=== PATIENT | male | born 1930 | race Caucasian/White ===

== ENCOUNTER 2019-03-13 18:29 | Inpatient (IN) ==
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
[2019-03-13 19:03] LABS: Mean Corpuscular Hemoglobin 31.3 pg (27-31); Mean Corpuscular Hgb Conc 32.9 g/dl (32-36); Mean Platelet Volume 8.5 fl (8-11.3); Platelet Count 310 K/mm3 (150-450); Red Cell Distribution Width 12.8 % (11.5-14.0); White Blood Count 13.8 K/mm3 (4.0-10.5)
[2019-03-13] MEDS ORDERED: LIDOCAINE HCL 50 ML VIAL IJ ONE (19:04)
[2019-03-13 19:17] LABS: Hemoglobin 7.5 gm/dL (13.5-18.0)
[2019-03-13 19:18] LABS: Hematocrit 22.8 % (42.0-52.0); Total Cells Counted 100
[2019-03-13 19:25] LABS: Albumin * 2.2 gm/dl (3.4-5.0); Anion Gap 9.9 mmol/L (6.8-13.8); BUN/Creatinine Ratio 13.9 (9.0-21.6); Bilirubin, Total 0.2 mg/dL (0.0-1.1); CRP 7.3 mg/dL (0.0-0.9); Ca. Corrected For Albumin 8.9 mg/dL (8.4-10.2); Calcium * 7.8 mg/dL (7.9-10.9); Carbon Dioxide 27.2 mmol/L (24-32.6); Potassium 3.1 mmol/L (3.4-4.6); Total Protein 6.7 gm/dL (6.2-8.2)
[2019-03-13 19:26] LABS: Atypical (Reactive) Lymph 1 % (0-2); Eosinophil 1 % (0-3); Lymphocyte 5 % (20-51); Monocyte 11 % (0-9); Neutrophil 82 % (42-75); Neutrophil # 11.3 K/mm3 (1.3-6.0)
[2019-03-13 19:27] LABS: Hypersegmented Polys Trace; Troponin I 0.02 ng/mL (0.00-0.10)
[2019-03-13 19:28] LABS: Anisocytosis 1+; Platelet Estimate Normal (NORMAL)
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
[2019-03-13] MEDS: oxyCODONE HCL/ACETAMINOPHEN 1 TAB TABLET PO PRN (23:43)
[2019-03-14 05:48] LABS: Mean Corpuscular Hemoglobin 31.1 pg (27-31); Mean Corpuscular Hgb Conc 32.8 g/dl (32-36); Mean Platelet Volume 8.5 fl (8-11.3); Neutrophil # 9.4 K/mm3 (1.3-6.0); Platelet Count 299 K/mm3 (150-450); Red Blood Count 2.41 M/mm3 (4.7-6.0); Red Cell Distribution Width 12.9 % (11.5-14.0); White Blood Count 12.2 K/mm3 (4.0-10.5)
[2019-03-14 05:51] LABS: Hematocrit 22.9 % (42.0-52.0); Hemoglobin 7.5 gm/dL (13.5-18.0)
[2019-03-14 06:00] LABS: Total Cells Counted 100
[2019-03-14 06:42] LABS: Eosinophil 2 % (0-3); Immature Granulocyte 1 (0-1); Lymphocyte 14 % (20-51); Monocyte 7 % (0-9); Neutrophil 76 % (42-75); Neutrophil # 9.3 K/mm3 (1.3-6.0); Platelet Estimate Normal (NORMAL); RBC Morphology Normal (NORMAL)
[2019-03-14] MEDS: oxyCODONE HCL/ACETAMINOPHEN 1 TAB TABLET PO PRN ×2 (07:44→16:06)
--- NOTE | 2019-03-14 08:27 | HP ---
Chief Complaint - Chief Complaint Date of Service: 03/14/19 Time of Service: 08:26 Chief Complaint: fall, facial lacerations, dizziness, anemia History of Present Illness: 88-year-old male with history of CHF, COPD, chronic back pain with long-term opiate use, hypertension presented to the ER after a ground-level fall. Patient was seen the day before by his PCP where he was diagnosed with right upper lobe pneumonia and started on Levaquin. Patient states that he has not felt well for close to a week regarding shortness of breath and cough. On day of injury patient states that he got dizzy and short of breath as his walking back to his house and he overextended and fell hit his face on concrete. Fall resulted in multiple lacerations to his face which was repaired by ER physician. CT scan of the head and neck were negative for acute pathology. Patient was found to be anemic at 7.5 hemoglobin. 3 months ago he was around 12. Patient does endorse dark stools but also thinks that he is losing most of his blood through his urine which he was told by another physician previously. Patient has never had a colonoscopy. Patient was also found to have an elevated BNP which there was some vascular congestion seen on his chest x-ray aside from the infiltrate in his right lung. Patient's vital signs been stable since coming to the ER aside from some tachycardia which has since resolved. He is afebrile. Currently patient is endorsing back pain, shortness of breath and cough. Denies any dizziness at this time but patient has been laying in bed since coming to the hospital. Patient currently on oxygen due to dyspnea. Patient was admitted under observation but due to new onset pneumonia (currently on Levaquin), symptom medic anemia, CHF exacerbation, as well as long-term opiate use: All of which may be attributing to his dizziness and fatigue and is likely appropriate the patient be made inpatient while he is being treated for these issues. Medical History (Last Updated 03/14/19 @ 01:01 by Esther Beasley RN) Prostatism (Chronic) He is getting up 3-4 times a night. He has urgency with urination but no dysuria. He does not void normal volumes as it seems to be smaller volume than usual. I expect he is not completely emptying his bladder. Emphysema with chronic bronchitis (Chronic) Chronic pain syndrome (Chronic) Hyperlipidemia (Chronic) Hypertension (Acute) Low back pain (Chronic) There is occasional sciatica down the right leg. 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) Hummel palsy CHF (congestive heart failure) Shingles COPD (chronic obstructive pulmonary disease) Colonoscopy refused Constipation High cholesterol Hx-TIA (transient ischemic attack) Hypertension Low back pain Surgical History: Surgical History (Last Updated 03/13/19 @ 22:41 by Esther Beasley RN) History of appendectomy H/O hemorrhoidectomy History of back surgery Hx of hernia repair Family History: Family History (Last Reviewed 03/13/19 @ 21:11 by Evelyne Jaimes MD) Father Myocardial infarction Social History: (Last Reviewed 03/13/19 @ 22:42 by Esther Beasley RN) Social History: Marital status: household members: none current occupational status: retired Highest education level completed: 8th grade Service: Yes branch: [employer] Tobacco: Smoking Status: Former smoker Alcohol: alcohol intake: never Substance Use: substance use type: does not use Dietary Habits: caffeine: Yes Type: coffee Review Of Systems (GEN) - Review of Systems Generalized/Overall Review: Present: Weakness, Fatigue. Absent: Chills, Fever EENTM: Present: No Symptoms Reported Respiratory: Present: Cough, Shortness of Breath Cardiac: Absent: Chest Pain, Edema, Palpitations, Syncope Abdominal: Absent: Nausea, Vomiting, Abdominal Pain Genitourinary: Present: No Symptoms Reported Musculoskeletal: Present: Back Pain, Muscle Pain Neurological: Present: No Symptoms Reported Skin: Present: Other - multiple cuts to face Endocrine: Present: No Symptoms Reported Immunizations: IMMUNIZATION HX Immunizations Up to Date Yes History of Influenza Vaccine Yes Hx Pneumococcal Vaccination Yes Allergies/Adverse Reactions: Allergies Allergy/AdvReac Type Severity Reaction Status Date / Time No Known Allergies Allergy Verified 03/13/19 09:04 Home Medications: HOME MEDICATIONS Pravastatin Sodium [Pravachol] 40 mg PO HS 10/12/15 [Last Taken 03/13/19 12:00] Triamterene/Hydrochlorothiazid [Maxzide 75 MG/50 MG] 1 tab PO DAILY 10/12/15 [Last Taken 03/13/19 09:00] Aspirin [Aspirin Chewable] 81 mg PO DAILY 05/02/18 [Last Taken 03/13/19 09:00] Budesonide/Formoterol Fumarate [Symbicort 160-4.5 Mcg Inhaler] 2 puff INHALATION BID 08/22/17 [Last Taken 03/13/19 09:00] Tiotropium Rand [Spiriva Respimat 2.5 mcg/inhalation] 2 puff INHALATION DAILY 08/22/17 [Last Taken 03/13/19 09:00] Polyethylene Glycol 3350 [Miralax] 17 gm PO DAILY #14 powd.pack 08/23/17 [Last Taken 03/12/19 21:00] guaifenesin 600 mg tablet, extended release 12 hr 600 mg PO BID #60 tab 03/13/19 [Last Taken Unknown] levofloxacin 500 mg tablet 500 mg PO DAILY #10 tab 03/13/19 [Last Taken 03/13/19 12:00] oxycodone-acetaminophen 10 mg-325 mg tablet 1 tab PO QID PRN #120 tab 03/13/19 [Last Taken 03/13/19 16:30] Exam - Exam Vital Signs: Vital Signs - Last Taken Temp 36.2 C 03/14/19 06:34 Pulse 86 03/14/19 06:34 Resp 20 03/14/19 06:34 BP 107/55 03/14/19 06:34 Pulse Ox 93 03/14/19 06:34 Constitutional: Present: Alert, Oriented x3, Cooperative, Elderly ENT Exam: Present: hearing grossly normal, pharynx normal, other - no septal hematoma. Absent: nasal congestion Eye Exam: bilateral eye: normal inspection, PERRL, EOMI Neck: Present: non-tender, supple Back Exam: Present: vertebral tenderness, other - myalgia lower back Respiratory: Present: no respiratory distress, no accessory muscle use, crackles - RML, rhonchi - RML Cardiovascular/Chest: Present: normal peripheral pulses, regular rate, rhythm. Absent: edema Peripheral Pulses: carotid (R): 2+, carotid (L): 2+, dorsalis-pedis (R): 2+, dorsalis-pedis (L): 2+ Abdomen: Present: Normal bowel sounds, soft, nontender, nondistended /Rectal: Present: Exam deferred Skin Exam: Present: warm/dry, pallor Lymphatic: Present: no adenopathy Appearance: Present: appropriate appearance, appropriate insight Eye contact: Present: cooperative, good eye contact, normal speech Thoughts: Present: normal thought pattern, normal mood /affect Diagnostic Studies: Abnormal Lab Results 03/13/19 03/13/19 03/13/19 Range/Units 18:43 19:00 19:00 WBC 13.8 H (4.0-10.5) K/mm3 RBC 2.40 L (4.7-6.0) M/mm3 Hgb 7.5 L* (13.5-18.0) gm/dL Hct 22.8 L* (42.0-52.0) % MCH 31.3 H (27-31) pg Immature Gran % (Auto) (0.001-0.429) % Immature Gran # (Auto) (0.000-0.0310) K/mm3 Neutrophils % (42-75.0) % Neutrophils % (Manual) 82 H (42-75) % Lymphocytes % (20-51) % Lymphocytes % (Manual) 5 L (20-51) % Monocytes % (0.0-9) % Monocytes % (Manual) 11 H (0-9) % Neutrophils # (1.3-6.0) K/mm3 Neutrophils # (Manual) 11.3 H (1.3-6.0) K/mm3 Lymphocytes # (1.5-3.5) k/mm3 Lymphocytes # (Manual) 0.7 L (1.5-3.5) k/mm3 Monocytes # (0.0-1.0) k/mm3 Monocytes # (Manual) 1.5 H (0.0-1.0) k/mm3 Total CO2 27.5 H (19.0-24.0) mmol/L Sodium 129 L (132-142) mmol/L Plasma Sodium 129 L (130-142) mmol/L Potassium 3.1 L (3.4-4.6) mmol/L Chloride 95 L (97-106) mmol/L Creatinine 1.58 H (0.4-1.4) mg/dL Est GFR (Non-Af Amer) 44 L (60-130) mL/min Random Glucose 125 H (70-110) mg/dL Calcium 7.8 L (7.9-10.9) mg/dL ALT 11 L (19-67) U/L C-Reactive Prot, Quant 7.3 H (0.0-0.9) mg/dL B-Natriuretic Peptide 2176 H (5-650) pg/mL Albumin 2.2 L (3.4-5.0) gm/dl 03/14/19 Range/Units 06:00 WBC 12.2 H (4.0-10.5) K/mm3 RBC 2.41 L (4.7-6.0) M/mm3 Hgb 7.5 L* (13.5-18.0) gm/dL Hct 22.9 L* (42.0-52.0) % MCH 31.1 H (27-31) pg Immature Gran % (Auto) 1.00 H (0.001-0.429) % Immature Gran # (Auto) 0.12 H (0.000-0.0310) K/mm3 Neutrophils % 77.0 H (42-75.0) % Neutrophils % (Manual) 76 H (42-75) % Lymphocytes % 6.5 L (20-51) % Lymphocytes % (Manual) 14 L (20-51) % Monocytes % 14.7 H (0.0-9) % Monocytes % (Manual) (0-9) % Neutrophils # 9.4 H (1.3-6.0) K/mm3 Neutrophils # (Manual) 9.3 H (1.3-6.0) K/mm3 Lymphocytes # 0.79 L (1.5-3.5) k/mm3 Lymphocytes # (Manual) (1.5-3.5) k/mm3 Monocytes # 1.8 H (0.0-1.0) k/mm3 Monocytes # (Manual) (0.0-1.0) k/mm3 Total CO2 (19.0-24.0) mmol/L Sodium (132-142) mmol/L Plasma Sodium (130-142) mmol/L Potassium (3.4-4.6) mmol/L Chloride (97-106) mmol/L Creatinine (0.4-1.4) mg/dL Est GFR (Non-Af Amer) (60-130) mL/min Random Glucose (70-110) mg/dL Calcium (7.9-10.9) mg/dL ALT (19-67) U/L C-Reactive Prot, Quant (0.0-0.9) mg/dL B-Natriuretic Peptide (5-650) pg/mL Albumin (3.4-5.0) gm/dl Laboratory Results WBC 12.2 K/mm3 (4.0-10.5) H 03/14/19 06:00 RBC 2.41 M/mm3 (4.7-6.0) L 03/14/19 06:00 Hgb 7.5 gm/dL (13.5-18.0) L* 03/14/19 06:00 Hct 22.9 % (42.0-52.0) L* 03/14/19 06:00 MCV 95.0 fl (78-100) 03/14/19 06:00 MCH 31.1 pg (27-31) H 03/14/19 06:00 MCHC 32.8 g/dl (32-36) 03/14/19 06:00 RDW 12.9 % (11.5-14.0) 03/14/19 06:00 Plt Count 299 K/mm3 (150-450) 03/14/19 06:00 MPV 8.5 fl (8-11.3) 03/14/19 06:00 Immature Gran % (Auto) 1.00 % (0.001-0.429) H 03/14/19 06:00 Immature Gran # (Auto) 0.12 K/mm3 (0.000-0.0310) H 03/14/19 06:00 Neutrophils % 77.0 % (42-75.0) H 03/14/19 06:00 Neutrophils % (Manual) 76 % (42-75) H 03/14/19 06:00 Lymphocytes % 6.5 % (20-51) L 03/14/19 06:00 Lymphocytes % (Manual) 14 % (20-51) L 03/14/19 06:00 Monocytes % 14.7 % (0.0-9) H 03/14/19 06:00 Monocytes % (Manual) 7 % (0-9) 03/14/19 06:00 Eosinophils % 0.6 % (0.0-3.0) 03/14/19 06:00 Eosinophils % (Manual) 2 % (0-3) 03/14/19 06:00 Basophils % 0.2 % (0.0-1.0) 03/14/19 06:00 Nucleated RBC % 0.0 k/mm3 (0-1) 03/14/19 06:00 Immature Granulocytes 1 (0-1) 03/14/19 06:00 Neutrophils # 9.4 K/mm3 (1.3-6.0) H 03/14/19 06:00 Neutrophils # (Manual) 9.3 K/mm3 (1.3-6.0) H 03/14/19 06:00 Lymphocytes # 0.79 k/mm3 (1.5-3.5) L 03/14/19 06:00 Lymphocytes # (Manual) 1.7 k/mm3 (1.5-3.5) 03/14/19 06:00 Monocytes # 1.8 k/mm3 (0.0-1.0) H 03/14/19 06:00 Monocytes # (Manual) 0.9 k/mm3 (0.0-1.0) 03/14/19 06:00 Eosinophils # 0.1 k/mm3 (0.0-0.7) 03/14/19 06:00 Eosinophils # (Manual) 0.2 k/mm3 (0.0-0.7) 03/14/19 06:00 Absolute Basophils 0.0 k/mm3 (0.0-0.1) 03/14/19 06:00 Hypersegmented Polys Trace 03/13/19 19:00 Atypic/Reactive Lymphs 1 % (0-2) 03/13/19 19:00 Platelet Estimate Normal (NORMAL) 03/14/19 06:00 RBC Morphology Normal (NORMAL) 03/14/19 06:00 Anisocytosis 1+ 03/13/19 19:00 pCO2 41.2 mmHg (35.0-48.0) 03/13/19 18:43 pO2 95.2 mmHg (83.0-108.0) 03/13/19 18:43 HCO3 26.2 mmol/L (21.0-28.0) 03/13/19 18:43 Total CO2 27.5 mmol/L (19.0-24.0) H 03/13/19 18:43 Base Excess 1.7 mmol/L (-2.0-3.0) 03/13/19 18:43 ABG pH 7.42 (7.35-7.45) 03/13/19 18:43 ABG O2 Sat (Measured) 97.4 % (94.0-98.0) 03/13/19 18:43 Sodium 129 mmol/L (132-142) L 03/13/19 19:00 Plasma Sodium 129 mmol/L (130-142) L 03/13/19 19:00 Potassium 3.1 mmol/L (3.4-4.6) L 03/13/19 19:00 Chloride 95 mmol/L (97-106) L 03/13/19 19:00 Carbon Dioxide 27.2 mmol/L (24-32.6) 03/13/19 19:00 Anion Gap 9.9 mmol/L (6.8-13.8) 03/13/19 19:00 BUN 22 mg/dL (6-23) 03/13/19 19:00 Creatinine 1.58 mg/dL (0.4-1.4) H 03/13/19 19:00 Est GFR (Non-Af Amer) 44 mL/min (60-130) L 03/13/19 19:00 BUN/Creatinine Ratio 13.9 (9.0-21.6) 03/13/19 19:00 Random Glucose 125 mg/dL (70-110) H 03/13/19 19:00 Lactic Acid, Venous 1.9 mmol/L (0.4-2.0) 03/13/19 19:00 Calcium 7.8 mg/dL (7.9-10.9) L 03/13/19 19:00 Calcium Adj for Albumin 8.9 mg/dL (8.4-10.2) 03/13/19 19:00 Total Bilirubin 0.2 mg/dL (0.0-1.1) 03/13/19 19:00 AST 15 U/L (0-48) 03/13/19 19:00 ALT 11 U/L (19-67) L 03/13/19 19:00 Alkaline Phosphatase 102 U/L (50-170) 03/13/19 19:00 Troponin I 0.020 ng/mL (0.00-0.10) 03/13/19 19:00 C-Reactive Prot, Quant 7.3 mg/dL (0.0-0.9) H 03/13/19 19:00 B-Natriuretic Peptide 2176 pg/mL (5-650) H 03/13/19 19:00 Total Protein 6.7 gm/dL (6.2-8.2) 03/13/19 19:00 Albumin 2.2 gm/dl (3.4-5.0) L 03/13/19 19:00 Procalcitonin 0.08 ng/mL (0.05-0.50) 03/13/19 19:00 Assessment/Plan - Narrative Narrative: Patient placed in observation though with everything going on I think he would be better suited as inpatient. Patient currently awaiting transfusion of 1 unit packed red blood cells along with 20 mg IV Lasix. Fecal occult blood test ordered. Restarted patient breathing treatments to help with some of the shortness of breath that he is feeling. Patient currently on 1-/2 oxygen via nasal cannula to maintain sats and for comfort. Restarted patient's Levaquin for his pneumonia. Adjusted patient's pain medicine as he was getting 10 mg of Percocet 4 times daily but due to fall risk and dizziness will titrate down to 5 mg Percocet 3 times daily while he is acutely ill. We will recheck patient's sodium, currently fluid restricting him as well as strict I's and O's for CHF exacerbation. Hypertension well-controlled. Tachycardia has returned back to normal range. White blood cell count at admission was 13.8 with a left shift of 82%. Chronic kidney disease at baseline. Patient started on heart healthy diet, chronic medications restarted aside from the change in his opiate pain medicine. Will place SCDs for DVT prophylaxis due to patient's anemia and bleeding risk. Discussed all this with the patient who is in agreement the treatment plan, nurse to call me with any questions or concerns. Repeat CBC and BMP In the morning. Repeat hemogram 2 hours posttransfusion this morning. - Assessment/Plan (1) Symptomatic anemia Problem: Acute (2) Pneumonia Problem: Acute (3) CHF exacerbation Problem: Acute (4) Hyponatremia Problem: Acute (5) Face lacerations Problem: Acute (6) Hypertension Problem: Acute Qualifiers: Hypertension type: essential hypertension Qualified Code(s): I10 - Essential (primary) hypertension (7) Low back pain Problem: Chronic Qualifiers: Chronicity: chronic Back pain laterality: midline Sciatica presence: without sciatica Qualified Code(s): M54.5 - Low back pain; G89.29 - Other chronic pain (8) COPD (chronic obstructive pulmonary disease) Problem: Chronic Qualifiers: COPD type: chronic bronchitis Chronic bronchitis type: mixed simple and mucopurulent Qualified Code(s): J41.8 - Mixed simple and mucopurulent chronic bronchitis (9) CKD (chronic kidney disease) stage 3, GFR 30-59 ml/min Problem: Chronic
[2019-03-14] MEDS ORDERED: POLYETHYLENE GLYCOL 3350 17 GM PACKET PO SCH (09:00)
[2019-03-14 09:32] LABS: BUN/Creatinine Ratio 13.9 (9.0-21.6); Calcium * 8.5 mg/dL (7.9-10.9); Carbon Dioxide 28.9 mmol/L (24-32.6); Estimated Creat Clear 40.5; Potassium 2.9 mmol/L (3.4-4.6)
[2019-03-14] MEDS: FLUTICASONE PROPION/SALMETEROL 14 PUFF DISK.W.DEV IH SCH ×2 (10:01→20:06)
[2019-03-14] MEDS: TIOTROPIUM BROMIDE 5 CAP INHALER IH SCH (10:02)
[2019-03-14] MEDS: ASPIRIN 81 MG TAB.CHEW PO SCH (10:02)
[2019-03-14] MEDS: LEVOFLOXACIN 500 MG TABLET PO SCH (10:02)
[2019-03-14] MEDS: TRIAMTERENE/HYDROCHLOROTHIAZID 1 TAB TABLET PO SCH (10:02)
[2019-03-14] MEDS: FUROSEMIDE 10 MG/ML VIAL IV SCH (10:04)
[2019-03-14] MEDS: SIMVASTATIN 20 MG TABLET PO SCH (20:06)
[2019-03-14] MEDS: diphenhydrAMINE HCL 25 MG CAPSULE PO PRN (23:15)
[2019-03-14] MEDS: POLYETHYLENE GLYCOL 3350 17 GM PACKET PO SCH (23:15)
[2019-03-15] MEDS: oxyCODONE HCL/ACETAMINOPHEN 1 TAB TABLET PO PRN ×3 (00:10→18:35)
[2019-03-15 03:25] LABS: Hematocrit 25.9 % (42.0-52.0)
[2019-03-15 03:31] LABS: Hemoglobin 8.7 gm/dL (13.5-18.0)
[2019-03-15] MEDS: FLUTICASONE PROPION/SALMETEROL 14 PUFF DISK.W.DEV IH SCH ×2 (08:50→21:42)
[2019-03-15] MEDS: TIOTROPIUM BROMIDE 5 CAP INHALER IH SCH (08:50)
[2019-03-15] MEDS: ASPIRIN 81 MG TAB.CHEW PO SCH (08:51)
[2019-03-15] MEDS: TRIAMTERENE/HYDROCHLOROTHIAZID 1 TAB TABLET PO SCH (08:51)
[2019-03-15] MEDS: LEVOFLOXACIN 500 MG TABLET PO SCH (08:51)
[2019-03-15] MEDS: POLYETHYLENE GLYCOL 3350 17 GM PACKET PO SCH ×2 (08:51→21:45)
[2019-03-15] MEDS: FUROSEMIDE 10 MG/ML VIAL IV SCH (10:00)
[2019-03-15] MEDS: POTASSIUM CHLORIDE 40 MEQ/15 ML LIQUID PO SCH (11:32)
[2019-03-15] MEDS ORDERED: ONDANSETRON HCL/PF 2 MG/ML VIAL IV PRN (11:46)
[2019-03-15 18:09] LABS: Hematocrit 30.2 % (42.0-52.0); Hemoglobin 9.9 gm/dL (13.5-18.0); Mean Cell Volume 94.7 fl (78-100); Mean Corpuscular Hgb Conc 32.8 g/dl (32-36); Mean Platelet Volume 9.3 fl (8-11.3); Platelet Count 336 K/mm3 (150-450); Red Blood Count 3.19 M/mm3 (4.7-6.0); Red Cell Distribution Width 13.2 % (11.5-14.0); White Blood Count 15.9 K/mm3 (4.0-10.5)
--- NOTE | 2019-03-15 19:55 | PN ---
Subjective - Date and Time Seen Date: 03/15/19 Time: 12:41 Subjective Narrative: Patient did well overnight without any acute events. His vital signs been stable and has been afebrile. Patient was unable to get blood until late last night and so we will need to recheck his hemoglobin later this afternoon to make sure he remained stable. Patient does endorse some dark tarry stools but they are minimal and he has not had any recently. Discussed possible colonoscopy which patient does not really want to do but will wait and see how his blood counts do in order to determine whether or not this is necessary. Patient feels well otherwise, denies being dizzy or weak. His breathing is fine. Patient does have significant bruising along his face with a couple lacerations repaired on his forehead and his nose. Otherwise he feels well, does have a slight cough but is nonproductive. Objective - Review of Systems Generalized/Overall Review: Denies: Weakness, Chills, Fever EENTM: Denies: Blurred Vision, Double Vision Respiratory: Reports: Cough. Denies: Shortness of Breath, Wheezing Cardiac: Denies: Chest Pain, Palpitations, Syncope Abdominal: Denies: Nausea, Vomiting, Abdominal Pain Genitourinary Symptoms: Reports: No Symptoms Reported Musculoskeletal Complaints: Reports: Back Pain, Neck Pain Neurological: Denies: Headache Skin: Reports: Other - Significant ecchymosis in forehead, cheeks and nose. - Vitals Vitals: Last Vital Signs Temp 36.4 C 03/15/19 18:37 Pulse 101 H 03/15/19 18:37 Resp 17 03/15/19 18:37 BP 122/49 03/15/19 18:37 Pulse Ox 94 03/15/19 18:37 - Abnormal Lab Findings Abnormal Lab Findings: Abnormal Lab Results 03/13/19 03/15/19 03/15/19 Range/Units Unknown 03:00 18:03 WBC 15.9 H D (4.0-10.5) K/mm3 RBC 3.19 L (4.7-6.0) M/mm3 Hgb 8.7 L 9.9 L (13.5-18.0) gm/dL Hct 25.9 L 30.2 L (42.0-52.0) % Crossmatch See Detail - Exam Constitutional: Present: Alert, Oriented x3, Cooperative, Elderly ENT Exam: Present: hearing grossly normal. Absent: nasal drainage, pharyngeal erythema Neck: Present: non-tender, limited range of motion - Due to arthritis Respiratory: Present: chest non-tender, crackles - Right upper and middle lobes, rhonchi - Right upper and middle lobes. Absent: respiratory distress, No wheezing Cardiovascular/Chest: Present: regular rate, rhythm, no murmur Abdomen: Present: Normal bowel sounds, soft, nontender /Rectal: Present: Exam deferred Skin Exam: Present: normal color, warm/dry, other - Significant ecchymosis on face, 2 small repaired lacerations on face Appearance: Present: appropriate appearance, appropriate insight Eye contact: Present: cooperative, good eye contact Thoughts: Present: normal thought pattern, normal mood /affect Assessment/Plan Plan Narrative: Significant improvement overnight, vital signs are stable and he is afebrile. No acute events. Patient's breathing is much easier and is maintaining sats on room air well. His tachycardia is also improved significantly. His hemoglobin 24 hours posttransfusion is significantly better. Patient did have a positive occult blood test but wishes to wait on the colonoscopy and discuss this with his primary care doctor, Dr. Jaramillo, when he sees him next. Patient denies productive cough. Patient is down roughly 12 pounds with diuresis Patient's blood pressures well controlled Ecchymosis and facial lacerations unchanged Patient will likely be discharged home tomorrow morning. SCDs for DVT prophylaxis. Repeat labs in the morning. Nurse to call with any questions or concerns. - Problems/Diagnosis (1) Symptomatic anemia Problem: Resolved (2) Pneumonia Problem: Acute (3) CHF exacerbation Problem: Acute (4) Hyponatremia Problem: Resolved (5) Face lacerations Problem: Acute (6) Hypertension Problem: Chronic Qualifiers: Hypertension type: essential hypertension Qualified Code(s): I10 - Essential (primary) hypertension (7) Low back pain Problem: Chronic Qualifiers: Chronicity: chronic Back pain laterality: midline Sciatica presence: without sciatica Qualified Code(s): M54.5 - Low back pain; G89.29 - Other chronic pain (8) COPD (chronic obstructive pulmonary disease) Problem: Chronic Qualifiers: COPD type: chronic bronchitis Chronic bronchitis type: mixed simple and mucopurulent Qualified Code(s): J41.8 - Mixed simple and mucopurulent chronic bronchitis (9) CKD (chronic kidney disease) stage 3, GFR 30-59 ml/min Problem: Chronic
[2019-03-15] MEDS: SIMVASTATIN 20 MG TABLET PO SCH (21:43)
[2019-03-15] MEDS: diphenhydrAMINE HCL 25 MG CAPSULE PO PRN (23:02)
[2019-03-16 06:19] LABS: Hematocrit 27.7 % (42.0-52.0); Hemoglobin 9.1 gm/dL (13.5-18.0); Mean Cell Volume 94.5 fl (78-100); Mean Corpuscular Hemoglobin 31.1 pg (27-31); Mean Corpuscular Hgb Conc 32.9 g/dl (32-36); Mean Platelet Volume 8.5 fl (8-11.3); Platelet Count 327 K/mm3 (150-450); Red Blood Count 2.93 M/mm3 (4.7-6.0); Red Cell Distribution Width 13.1 % (11.5-14.0); White Blood Count 13.8 K/mm3 (4.0-10.5)
[2019-03-16 06:23] LABS: Total Cells Counted 100
[2019-03-16 06:28] LABS: Anion Gap 11.3 mmol/L (6.8-13.8); BUN/Creatinine Ratio 13.3 (9.0-21.6); Calcium * 8.5 mg/dL (7.9-10.9); Carbon Dioxide 28.1 mmol/L (24-32.6); Estimated Creat Clear 35.1; Potassium 3.4 mmol/L (3.4-4.6)
[2019-03-16 06:33] LABS: Atypical (Reactive) Lymph 2 % (0-2); Band 2 % (0-2.0); Immature Granulocyte 2 (0-1); Lymphocyte 5 % (20-51); Monocyte 13 % (0-9); Neutrophil 76 % (42-75); Neutrophil # 10.5 K/mm3 (1.3-6.0); Platelet Estimate Normal (NORMAL)
[2019-03-16 06:35] LABS: Hypersegmented Polys Trace; Hypochromia Trace; Polychromasia 1+; Toxic Granulation 1+
[2019-03-16 06:36] LABS: Basophilic Stippling Trace
[2019-03-16] MEDS: oxyCODONE HCL/ACETAMINOPHEN 1 TAB TABLET PO PRN ×2 (07:22→17:48)
[2019-03-16] MEDS: TRIAMTERENE/HYDROCHLOROTHIAZID 1 TAB TABLET PO SCH (09:02)
[2019-03-16] MEDS: FUROSEMIDE 10 MG/ML VIAL IV SCH (09:02)
[2019-03-16] MEDS: FLUTICASONE PROPION/SALMETEROL 14 PUFF DISK.W.DEV IH SCH ×2 (09:02→20:44)
[2019-03-16] MEDS: LEVOFLOXACIN 500 MG TABLET PO SCH (09:02)
[2019-03-16] MEDS: POLYETHYLENE GLYCOL 3350 17 GM PACKET PO SCH (09:03)
[2019-03-16] MEDS: POTASSIUM CHLORIDE 40 MEQ/15 ML LIQUID PO SCH (09:03)
[2019-03-16] MEDS: TIOTROPIUM BROMIDE 5 CAP INHALER IH SCH (09:03)
--- NOTE | 2019-03-16 14:20 | CONS ---
[facility] - General Date of Service: 03/16/19 Narrative: He had originally come to the doctor because of cough and weakness. He was found to have pneumonia. He was going out to get the paper and on the way back in fell down striking his face on the pavement. He had lacerations on his face repaired in ER. He was found to be profoundly anemic and admitted. He has been having increased fatigue, dyspnea on exertion, and unsteadiness since earlier this fall, but it has gotten worse. He has occasional blood on the tissue paper from hemorrhoids but has not seen any blood in the stool. He does not complain much of heartburn and has no trouble swallowing. He has never had a colonoscopy His hemoglobin has decreased steadily since November Source: patient, RN/MD, RN notes reviewed, old records Exam Limitations: no limitations - History of Present Illness Associated Symptoms: weakness Allergies/Adverse Reactions: Allergies No Known Allergies Allergy (Verified 03/13/19 09:04) Home Medications: Home Medications Medication Instructions Recorded Last Taken RX: Pravastatin Sodium [Pravachol] 40 mg PO HS 10/12/15 03/13/19 12:00 RX: Triamterene/Hydrochlorothiazid 1 tab PO DAILY 10/12/15 03/13/19 09:00 [Maxzide 75 MG/50 MG] RX: Aspirin [Aspirin Chewable] 81 mg PO DAILY 08/14/17 03/13/19 09:00 Budesonide/Formoterol Fumarate 2 puff INHALATION BID 08/22/17 03/13/19 09:00 [Symbicort 160-4.5 Mcg Inhaler] Tiotropium [place] [Spiriva 2 puff INHALATION DAILY 08/22/17 03/13/19 09:00 Respimat 2.5 mcg/inhalation] Polyethylene Glycol 3350 [Miralax] 17 gm PO DAILY #14 powd.pack 08/23/17 03/12/19 21:00 guaifenesin 600 mg tablet, 600 mg PO BID #60 tab 03/13/19 Unknown extended release 12 hr levofloxacin 500 mg tablet 500 mg PO DAILY #10 tab 03/13/19 03/13/19 12:00 oxycodone-acetaminophen 10 mg-325 1 tab PO QID PRN #120 tab 03/13/19 03/13/19 16:30 mg tablet Medications - Medications Current Medications: Current Medications Diphenhydramine HCl (Benadryl) 25 mg PO HS PRN PRN Reason: Sleep Stop: 04/13/19 23:06 Last Admin: 03/15/19 23:02 Dose: 25 mg Documented by: Furosemide (Lasix) 20 mg IV DAILY [facility]AL Stop: 04/13/19 09:01 Last Admin: 03/16/19 09:02 Dose: 20 mg Documented by: Guaifenesin (Mucinex) 600 mg PO BID CR[facility]STAL Stop: 04/13/19 09:01 Last Admin: 03/16/19 09:02 Dose: 600 mg Documented by: Levofloxacin (Levaquin) 500 mg PO DAILY [facility]; Protocol Stop: 04/13/19 09:01 Last Admin: 03/16/19 09:02 Dose: 500 mg Documented by: Ondansetron HCl (Zofran) 4 mg IV Q6H PRN PRN Reason: Nausea And Vomiting Stop: 04/14/19 11:47 Last Admin: 03/15/19 11:50 Dose: 4 mg Documented by: Oxycodone/Acetaminophen (Percocet 5 Mg/325 Mg) 1 tab PO Q8H PRN PRN Reason: Pain Stop: 04/12/19 23:24 Last Admin: 03/16/19 07:22 Dose: 1 tab Documented by: Polyethylene Glycol (Miralax) 17 gm PO DAILY CRYSTAL Stop: 04/13/19 21:01 Last Admin: 03/16/19 09:03 Dose: Not Given Documented by: Potassium Chloride (Potassium Chloride 40 Meq/15ml Liquid) 40 meq PO DAILY CRYSTAL Stop: 04/14/19 10:46 Last Admin: 03/16/19 09:03 Dose: 40 meq Documented by: Fluticasone/Salmeterol (Advair 500-50 Diskus) 1 puff IH BID CRYSTAL Stop: 04/13/19 09:01 Last Admin: 03/16/19 09:02 Dose: 1 puff Documented by: Simvastatin (Zocor) 20 mg PO HS CRYSTAL Stop: 04/13/19 21:01 Last Admin: 03/15/19 21:43 Dose: 20 mg Documented by: Tiotropium [place] (Spiriva) 1 cap IH DAILY CRYSTAL Stop: 04/13/19 09:01 Last Admin: 03/16/19 09:03 Dose: 1 cap Documented by: Triamterene/HCTZ (Maxzide 75 Mg/50 Mg) 1 tab PO DAILY CRYSTAL Stop: 04/13/19 09:01 Last Admin: 03/16/19 09:02 Dose: 1 tab Documented by: Review of Systems - Review of Systems Generalized/Overall Review: Present: Weakness. Absent: Chills, Fever EENTM: Present: Other - Pain from his facial bruises and lacerations Respiratory: Present: Cough, Shortness of Breath Cardiac: Present: Palpitations. Absent: Chest Pain Abdominal: Present: Constipation - He only moves his bowels 2 or 3 times a week but "I do not eat much", Bright blood from rectum - Only on the toilet tissue, he has had a hemorrhoid surgery in the past. Absent: Nausea, Vomiting, Hematemesis, Abdominal Pain Genitourinary: Present: Other - He has considerable difficulty urinating. He has to sit to urinate. Sometimes he feels like he has to go and cannot. Other times he will void and then immediately have to void again. Musculoskeletal: Present: Joint Pain Neurological: Present: Other - He has fallen several times over the last year Skin: Present: Bruising Physical Examination - Exam Vital Signs: Vital Signs - Last Taken Temp 36.4 C 03/16/19 10:16 Pulse 121 H 03/16/19 14:09 Resp 20 03/16/19 10:16 BP 103/53 03/16/19 10:16 Pulse Ox 92 L 03/16/19 10:16 O2 Oxygen Delivery Method Room Air Constitutional: Present: Alert, Oriented x3, Cooperative, No distress ENT Exam: Present: other - Ecchymoses and lacerations on the face Eye Exam: bilateral eye: normal inspection Neck: Present: full range of motion, normal inspection Respiratory: Present: no respiratory distress Cardiovascular/Chest: Present: irregularly irregular Abdomen: Present: soft, nontender /Rectal: Present: Exam deferred Extremity: Present: normal range of motion Skin Exam: Present: pallor Neurologic: Present: tree scout II-XII nml as tested, no motor/sensory deficits Appearance: Present: appropriate appearance, appropriate insight Eye contact: Present: cooperative, good eye contact, normal speech Thoughts: Present: normal thought pattern - Results and Findings: Lab/Microbiology results last 24 hrs: Abnormal/Pending Laboratory Last 24 HRS 03/16/19 03/16/19 03/15/19 06:16 06:00 18:03 WBC 13.8 H 15.9 H D RBC 2.93 L 3.19 L Hgb 9.1 L 9.9 L Hct 27.7 L 30.2 L MCH 31.1 H Neutrophils % (Manual) 76 H Lymphocytes % (Manual) 5 L Monocytes % (Manual) 13 H Immature Granulocytes 2 H Neutrophils # (Manual) 10.5 H Lymphocytes # (Manual) 0.7 L Monocytes # (Manual) 1.8 H Chloride 96 L Creatinine 1.58 H Est GFR (Non-Af Amer) 44 L Crossmatch 03/13/19 Unknown WBC RBC Hgb Hct MCH Neutrophils % (Manual) Lymphocytes % (Manual) Monocytes % (Manual) Immature Granulocytes Neutrophils # (Manual) Lymphocytes # (Manual) Monocytes # (Manual) Chloride Creatinine Est GFR (Non-Af Amer) Crossmatch See Detail Culture 03/13/19 19:55 Blood Culture - Preliminary Blood NO GROWTH AFTER 48 HOURS 03/13/19 19:00 Blood Culture - Preliminary Blood NO GROWTH AFTER 48 HOURS - Assessments/Findings (1) Heme positive stool Problem: Acute (2) Anemia Diagnosis(s): He has had a progressive anemia since November of this year. He does have a heme positive stool. His BUN is normal although the most likely source of bleeding is upper GI. He has never had a colon exam and that should be contemplated. Pamphlets on EGD, GERD, and colon screening were reviewed with him and given to him. The risks and possible complications of EGD were explained. Explained that a colonoscopy could be done as an outpatient. After interactive discussion his questions were answered to his apparent satisfaction and he has given informed consent for EGD with biopsies which will be performed tomorrow. Problem: Acute
--- NOTE | 2019-03-16 16:40 | PN ---
Subjective - Date and Time Seen Date: 03/16/19 Time: 08:00 Subjective Narrative: Joni Lundberg is a 88-year-old male who was admitted through ER on Saturday following a face plant fall at his home. He states that he had walked down to his mailbox and was within about 6 inches of his threshold when he finally passed out. He was getting lightheaded on the way back. He was brought to the emergency room had found to have several facial lacerations that were r epaired in the emergency room. His head CT and neck imaging studies are negative for fracture or intracranial bleed. He is found to have a hemoglobin of 7.5 g. He was given 1 unit of packed red blood cells which increased his hemoglobin to 9.9 g and then this morning was down to 9.1 g. He still feels too weak to care for himself at home and does not believe he can be discharged today. Hemoccult has been positive and stools have been very dark lately. They seem to be metal filer in color this morning according to nursing. The cause of his syncopal event was acute and profound anemia caused almost certainly by a GI bleed presumably upper GI. However he is never had a colonoscopy performed. I spoke with Dr. Hughes about doing upper endoscopy but I believe he will need upper and lower endoscopy and therefore will need a bowel prep. The cause of the GI bleed is unknown at this time but I suspect peptic ulcer disease or hemorrhagic gastritis. He is agreeable to be discharged to senior care at the [facility] tomorrow. Physical therapy has walked with him some today and he is weak and becomes lightheaded and short of breath still. His vital signs have been stable. He has been in intermittent atrial fibrillation through the night and this morning. Objective - Review of Systems Generalized/Overall Review: Reports: Weakness, Fatigue EENTM: Reports: No Symptoms Reported Respiratory: Reports: No Symptoms Reported Cardiac: Reports: No Symptoms Reported Abdominal: Reports: Abdominal Pain, Melena Genitourinary Symptoms: Reports: No Symptoms Reported Musculoskeletal Complaints: Reports: Neck Pain Neurological: Reports: Headache, Weakness Skin: Reports: Other - Multiple facial contusions and repaired lacerations Endocrine: Reports: No Symptoms Reported - Vitals Vitals: Last Vital Signs Temp 36.4 C 03/16/19 15:24 Pulse 121 H 03/16/19 14:09 Resp 12 03/16/19 15:24 BP 121/54 03/16/19 15:24 Pulse Ox 92 L 03/16/19 10:16 - Abnormal Lab Findings Abnormal Lab Findings: Abnormal Lab Results 03/13/19 03/15/19 03/16/19 Range/Units Unknown 18:03 06:00 WBC 15.9 H D 13.8 H (4.0-10.5) K/mm3 RBC 3.19 L 2.93 L (4.7-6.0) M/mm3 Hgb 9.9 L 9.1 L (13.5-18.0) gm/dL Hct 30.2 L 27.7 L (42.0-52.0) % MCH 31.1 H (27-31) pg Neutrophils % (Manual) 76 H (42-75) % Lymphocytes % (Manual) 5 L (20-51) % Monocytes % (Manual) 13 H (0-9) % Immature Granulocytes 2 H (0-1) Neutrophils # (Manual) 10.5 H (1.3-6.0) K/mm3 Lymphocytes # (Manual) 0.7 L (1.5-3.5) k/mm3 Monocytes # (Manual) 1.8 H (0.0-1.0) k/mm3 Chloride (97-106) mmol/L Creatinine (0.4-1.4) mg/dL Est GFR (Non-Af Amer) (60-130) mL/min Crossmatch See Detail 03/16/19 Range/Units 06:16 WBC (4.0-10.5) K/mm3 RBC (4.7-6.0) M/mm3 Hgb (13.5-18.0) gm/dL Hct (42.0-52.0) % MCH (27-31) pg Neutrophils % (Manual) (42-75) % Lymphocytes % (Manual) (20-51) % Monocytes % (Manual) (0-9) % Immature Granulocytes (0-1) Neutrophils # (Manual) (1.3-6.0) K/mm3 Lymphocytes # (Manual) (1.5-3.5) k/mm3 Monocytes # (Manual) (0.0-1.0) k/mm3 Chloride 96 L (97-106) mmol/L Creatinine 1.58 H (0.4-1.4) mg/dL Est GFR (Non-Af Amer) 44 L (60-130) mL/min Crossmatch - EKG/Xray Findings EKG: atrial fibrillation - Intermittently EKG read: Reviewed by me XRAY: CT head Interpretation: Reviewed by me - Exam Constitutional: Present: Alert, Oriented x3, Cooperative, Well developed, Well nourished, Mild distress ENT Exam: Present: hard of hearing, nasal congestion, moist mucous membranes, other - Nasal fracture Neck: Present: limited range of motion, tender lateral Breasts: Present: Exam deferred Respiratory: Present: chest non-tender, lungs clear, normal breath sounds, no respiratory distress, no accessory muscle use Cardiovascular/Chest: Present: normal peripheral pulses, irregularly irregular Abdomen: Present: Normal bowel sounds, soft, tender /Rectal: Present: Exam deferred Extremity: Present: normal range of motion, non-tender, normal inspection, no pedal edema, no calf tenderness, normal capillary refill Skin Exam: Present: pallor Lymphatic: Present: no adenopathy Neurologic: Present: primary substance abuse counselor II-XII nml as tested Appearance: Present: appropriate insight, neat, no memory impairment, disheveled Eye contact: Present: cooperative, good eye contact, normal speech Thoughts: Present: normal thought pattern, no apparent hallucination Assessment/Plan Plan Narrative: 1. Physical therapy to evaluate independent ADLs and ambulatory capability 2. Repeat morning labs CBC, CMP 3. Repeat EKG tomorrow morning 4. Discharge to [facility] tomorrow morning pending approval. 5. I will speak with Dr. Jason again and set up plans for appropriate endoscopy. - Problems/Diagnosis (1) Syncope and collapse Problem: Acute (2) Acute upper GI bleed Problem: Acute (3) Symptomatic anemia Problem: Acute (4) Fall Problem: Acute Qualifiers: Encounter type: subsequent encounter Qualified Code(s): W19.XXXD - Unspecified fall, subsequent encounter (5) Atrial fibrillation Problem: Acute Qualifiers: Atrial fibrillation type: paroxysmal Qualified Code(s): I48.0 - Paroxysmal atrial fibrillation (6) Face lacerations Problem: Acute Qualifiers: Encounter type: subsequent encounter Qualified Code(s): S01.81XD - Laceration without foreign body of other part of head, subsequent encounter (7) Chronic pain syndrome Problem: Chronic (8) Low back pain Problem: Chronic Qualifiers: Chronicity: chronic Back pain laterality: midline Sciatica presence: without sciatica Qualified Code(s): M54.5 - Low back pain; G89.29 - Other chronic pain (9) CKD (chronic kidney disease) stage 3, GFR 30-59 ml/min Problem: Chronic
[2019-03-16] MEDS: SUCRALFATE 1 G TABLET PO SCH ×2 (17:44→20:44)
[2019-03-16 18:23] LABS: Hematocrit 29.5 % (42.0-52.0); Hemoglobin 9.8 gm/dL (13.5-18.0); Mean Cell Volume 95.8 fl (78-100); Mean Corpuscular Hemoglobin 31.8 pg (27-31); Mean Corpuscular Hgb Conc 33.2 g/dl (32-36); Mean Platelet Volume 8.5 fl (8-11.3); Platelet Count 387 K/mm3 (150-450); Red Blood Count 3.08 M/mm3 (4.7-6.0); Red Cell Distribution Width 13.1 % (11.5-14.0); White Blood Count 17.5 K/mm3 (4.0-10.5)
[2019-03-16] MEDS: SIMVASTATIN 20 MG TABLET PO SCH (20:44)
[2019-03-16] MEDS: FAMOTIDINE 20 MG TABLET PO SCH (20:45)
[2019-03-16] MEDS ORDERED: PANTOPRAZOLE SODIUM 40 MG TABLET.EC PO SCH (21:00)
[2019-03-16] MEDS: diphenhydrAMINE HCL 25 MG CAPSULE PO PRN (22:53)
[2019-03-17] MEDS: SUCRALFATE 1 G TABLET PO SCH ×4 (06:41→20:30)
[2019-03-17 06:58] LABS: Hematocrit 27.5 % (42.0-52.0); Hemoglobin 9.1 gm/dL (13.5-18.0); Mean Cell Volume 94.8 fl (78-100); Mean Corpuscular Hemoglobin 31.4 pg (27-31); Mean Corpuscular Hgb Conc 33.1 g/dl (32-36); Mean Platelet Volume 8.7 fl (8-11.3); Platelet Count 364 K/mm3 (150-450); White Blood Count 14.8 K/mm3 (4.0-10.5)
[2019-03-17 07:00] LABS: Total Cells Counted 100
[2019-03-17 07:09] LABS: Albumin * 2.4 gm/dl (3.4-5.0); Anion Gap 8.2 mmol/L (6.8-13.8); BUN/Creatinine Ratio 16.8 (9.0-21.6); Bilirubin, Total 0.4 mg/dL (0.0-1.1); Ca. Corrected For Albumin 9.4 mg/dL (8.4-10.2); Calcium * 8.4 mg/dL (7.9-10.9); Carbon Dioxide 29.4 mmol/L (24-32.6); Potassium 3.6 mmol/L (3.4-4.6); Total Protein 7.2 gm/dL (6.2-8.2)
[2019-03-17 07:17] LABS: Atypical (Reactive) Lymph 9 % (0-2); Eosinophil 1 % (0-3); Immature Granulocyte 7 (0-1); Lymphocyte 10 % (20-51); Monocyte 5 % (0-9); Neutrophil 68 % (42-75); Neutrophil # 10.1 K/mm3 (1.3-6.0); Platelet Estimate Normal (NORMAL); RBC Morphology Normal (NORMAL)
[2019-03-17] MEDS ORDERED: MORPHINE SULFATE 2 MG/ML DISP.SYRIN IV ONE (09:47)
--- NOTE | 2019-03-17 13:01 | ANES ---
Anesthesia Pre Procedure Eval Vitals/Labs: Last Vital Signs Temp 36.5 C 03/17/19 11:00 Pulse 89 03/17/19 11:00 Resp 20 03/17/19 11:00 BP 100/45 03/17/19 11:00 Pulse Ox 96 03/17/19 11:00 HOME MEDICATIONS Pravastatin Sodium [Pravachol] 40 mg PO HS 10/12/15 [Last Taken 03/13/19 12:00] Triamterene/Hydrochlorothiazid [Maxzide 75 MG/50 MG] 1 tab PO DAILY 10/12/15 [Last Taken 03/13/19 09:00] Aspirin [Aspirin Chewable] 81 mg PO DAILY 08/14/17 [Last Taken 03/13/19 09:00] Budesonide/Formoterol Fumarate [Symbicort 160-4.5 Mcg Inhaler] 2 puff INHALATION BID 08/22/17 [Last Taken 03/13/19 09:00] Tiotropium [place] [Spiriva Respimat 2.5 mcg/inhalation] 2 puff INHALATION DAILY 08/22/17 [Last Taken 03/13/19 09:00] Polyethylene Glycol 3350 [Miralax] 17 gm PO DAILY #14 powd.pack 08/23/17 [Last Taken 03/12/19 21:00] guaifenesin 600 mg tablet, extended release 12 hr 600 mg PO BID #60 tab 03/13/19 [Last Taken Unknown] levofloxacin 500 mg tablet 500 mg PO DAILY #10 tab 03/13/19 [Last Taken 03/13/19 12:00] oxycodone-acetaminophen 10 mg-325 mg tablet 1 tab PO QID PRN #120 tab 03/13/19 [Last Taken 03/13/19 16:30] Allergies/Adverse Reactions: Allergies Allergy/AdvReac Type Severity Reaction Status Date / Time No Known Allergies Allergy Verified 03/13/19 09:04 - Planned Procedure Planned Procedure: EGD Medication List Reviewed:: Yes Allergies Verified: Yes Medical History (Last Reviewed 03/17/19 @ 13:00 by Bob Martines CRNA) Prostatism (Chronic) He is getting up 3-4 times a night. He has urgency with urination but no dysuria. He does not void normal volumes as it seems to be smaller volume than usual. I expect he is not completely emptying his bladder. Emphysema with chronic bronchitis (Chronic) Chronic pain syndrome (Chronic) Hyperlipidemia (Chronic) Hypertension (Chronic) Low back pain (Chronic) There is occasional sciatica down the right leg. 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) Hummel palsy CHF (congestive heart failure) Shingles COPD (chronic obstructive pulmonary disease) Colonoscopy refused Constipation High cholesterol Hx-TIA (transient ischemic attack) Hypertension Low back pain Surgical History (Last Reviewed 03/17/19 @ 13:00 by Bob Martines CRNA) History of appendectomy H/O hemorrhoidectomy History of back surgery Hx of hernia repair Family History (Last Reviewed 03/13/19 @ 21:11 by Evelyne Jaimes MD) Father Myocardial infarction - Family Anesthesia History Family History:: no untoward family reactions to anesthesia, no familial bleeding tendencies, no family history of clotting disorders, no family history of premature - Airway/Neck/Teeth Within Normal Limits:: Yes Teeth Condition: none Mallampatti Score: 3 Thyromental (T-M) distance: > 6 cm Mandibulo Hyoid distance: > 3 cm - Respiratory Respiratory History: asthma Smoking Status: Former smoker Discussed smoking cessation including day of surgery: No Sleep Apnea currently treated: No Sleep Apnea by current assessment: No Discussed Risks/Treatment of ERIC: No - Cardiovascular Tolerate Activity: Poor Heart Sounds: S1 & S2, Irregular - Anesthesia Assessment and Plan ASA Class: PS, III Anesthesia Type Plan: MAC
[2019-03-17] MEDS ORDERED: PROPOFOL VIAL IV ONE (13:17)
[2019-03-17] MEDS ORDERED: LIDOCAINE HCL 20 ML VIAL ONE (13:17)
[2019-03-17] MEDS ORDERED: RINGER'S SOLUTION,LACTATED 1,000 ML IV PRN (13:52)
--- NOTE | 2019-03-17 14:37 | ANES ---
Post Anesthesia Discharge - Transfer of Care Transfer of Care handoff given to nurse: Yes - Discharge from PACU Discharge from PACU when meets criteria: Yes - Discharge to ASU Discharge to ASU-no complications/pt stable: Yes
--- NOTE | 2019-03-17 14:38 | ANES ---
Post Anesthesia Assessment - Vital Signs Vitals: Last Vital Signs Temp 36.5 C 03/17/19 11:00 Pulse 89 03/17/19 11:00 Resp 20 03/17/19 11:00 BP 100/45 03/17/19 11:00 Pulse Ox 96 03/17/19 11:00 Airway Patency: Normal - Mental Status Level Of Consciousness: Awake - Pain Level Pain Score: 0 - N/V Assessment Nausea/Vomiting Presence: None Dehydration:: No
[2019-03-17] MEDS: FLUTICASONE PROPION/SALMETEROL 14 PUFF DISK.W.DEV IH SCH ×2 (15:12→20:30)
[2019-03-17] MEDS: FUROSEMIDE 10 MG/ML VIAL IV SCH (15:13)
[2019-03-17] MEDS: LEVOFLOXACIN 500 MG TABLET PO SCH (15:14)
[2019-03-17] MEDS: POLYETHYLENE GLYCOL 3350 17 GM PACKET PO SCH (15:14)
[2019-03-17] MEDS: TRIAMTERENE/HYDROCHLOROTHIAZID 1 TAB TABLET PO SCH (15:14)
[2019-03-17] MEDS: POTASSIUM CHLORIDE 40 MEQ/15 ML LIQUID PO SCH (15:15)
[2019-03-17] MEDS: FAMOTIDINE 20 MG TABLET PO SCH ×2 (15:15→20:30)
[2019-03-17] MEDS: TIOTROPIUM BROMIDE 5 CAP INHALER IH SCH (15:16)
--- NOTE | 2019-03-17 18:21 | PN ---
Subjective - Date and Time Seen Date: 03/17/19 Time: 08:00 Subjective Narrative: Joni Lundberg is had an uneventful night. He has eaten supper and breakfast well. She had a bowel movement this morning. He is in no distress at the time of my exam. He continues to be weak. His facial bruises continue but appear to be aging. There is no infection in the lacerations. He is still quite weak and needs assistance going to and from the bathroom for stability. I walked with him a short distance today and find him to be unstable. His pneumonia seems to be responding to therapy. He has been afebrile and he is coughing less. His anemia shows hemoglobin of 9.1 g today and his white count is at 14,800. He is requesting and case management is working on approval for admission to a intermediate until he has regained his strength and independence. He is a [employer] in sured patient and so going to the [facility] will not be an option. He will have to spend the night tonight getting the approval done and hopefully will be discharged tomorrow. Objective - Review of Systems Generalized/Overall Review: Reports: Weakness, Fatigue EENTM: Reports: Other - Multiple facial lacerations and contusions and a broken nose Respiratory: Reports: Cough, Shortness of Breath Cardiac: Reports: No Symptoms Reported Abdominal: Reports: No Symptoms Reported Genitourinary Symptoms: Reports: No Symptoms Reported Musculoskeletal Complaints: Reports: Neck Pain Neurological: Reports: Weakness Endocrine: Reports: No Symptoms Reported - Vitals Vitals: Last Vital Signs Temp 36.7 C 03/17/19 15:15 Pulse 98 03/17/19 15:22 Resp 18 03/17/19 15:15 BP 104/40 03/17/19 15:15 Pulse Ox 95 03/17/19 15:15 - Abnormal Lab Findings Abnormal Lab Findings: Abnormal Lab Results 03/16/19 03/17/19 03/17/19 Range/Units 18:20 06:41 06:41 WBC 17.5 H D 14.8 H (4.0-10.5) K/mm3 RBC 3.08 L 2.90 L (4.7-6.0) M/mm3 Hgb 9.8 L 9.1 L (13.5-18.0) gm/dL Hct 29.5 L 27.5 L (42.0-52.0) % MCH 31.8 H 31.4 H (27-31) pg Lymphocytes % (Manual) 10 L (20-51) % Immature Granulocytes 7 H (0-1) Neutrophils # (Manual) 10.1 H (1.3-6.0) K/mm3 Atypic/Reactive Lymphs 9 H (0-2) % Sodium 130 L (132-142) mmol/L Chloride 96 L (97-106) mmol/L BUN 31 H (6-23) mg/dL Creatinine 1.84 H (0.4-1.4) mg/dL Est GFR (Non-Af Amer) 37 L (60-130) mL/min Random Glucose 111 H (70-110) mg/dL ALT 15 L (19-67) U/L Albumin 2.4 L (3.4-5.0) gm/dl - EKG/Xray Findings EKG: atrial fibrillation EKG read: Reviewed by me XRAY: c-spine Interpretation: Reviewed by me - Exam Constitutional: Present: Alert, Oriented x3, Cooperative, Well developed, Well nourished, Mild distress, Elderly, Thin and frail ENT Exam: Present: normal ENT inspection, hearing grossly normal, pharynx normal, TMs normal, hard of hearing Neck: Present: non-tender, limited range of motion Breasts: Present: Nontender Respiratory: Present: chest non-tender, rhonchi, wheezing, expiration (prolonged) Cardiovascular/Chest: Present: normal peripheral pulses, no chest tenderness, no edema, no gallop, no JVD, no murmur, no rub, irregularly irregular Abdomen: Present: Normal bowel sounds, soft, nontender, nondistended, no rebound tenderness, no hepatospenomegaly, no masses /Rectal: Present: Exam deferred Extremity: Present: normal range of motion, non-tender, normal inspection, no pedal edema, no calf tenderness, normal capillary refill Skin Exam: Present: other - Multiple facial contusions and lacerations Lymphatic: Present: no adenopathy Neurologic: Present: postal service mail processor II-XII nml as tested, abnormal cerebellar tests - Difficulty with balance Appearance: Present: appropriate appearance, appropriate insight, disheveled Eye contact: Present: cooperative, good eye contact, normal speech Thoughts: Present: normal thought pattern, no apparent hallucination Assessment/Plan Plan Narrative: Continue to progress activity Recheck lab tomorrow morning with CBC and CMP Continue continuous cardiac monitoring Continue antibiotic therapy Continue respiratory therapy Continue physical therapy Plan on discharging tomorrow - Problems/Diagnosis (1) Acute blood loss anemia Problem: Acute (2) Syncope and collapse Problem: Acute (3) Acute upper GI bleed Problem: Acute (4) Symptomatic anemia Problem: Acute (5) Fall Problem: Acute Qualifiers: Encounter type: subsequent encounter Qualified Code(s): W19.XXXD - Unspecified fall, subsequent encounter (6) Atrial fibrillation Problem: Acute Qualifiers: Atrial fibrillation type: paroxysmal Qualified Code(s): I48.0 - Paroxysmal atrial fibrillation (7) Face lacerations Problem: Acute Qualifiers: Encounter type: subsequent encounter Qualified Code(s): S01.81XD - Laceration without foreign body of other part of head, subsequent encounter (8) Chronic pain syndrome Problem: Chronic (9) Low back pain Problem: Chronic Qualifiers: Chronicity: chronic Back pain laterality: midline Sciatica presence: without sciatica Qualified Code(s): M54.5 - Low back pain; G89.29 - Other chronic pain (10) CKD (chronic kidney disease) stage 3, GFR 30-59 ml/min Problem: Chronic
--- NOTE | 2019-03-17 19:36 | OR ---
Operative Report - Dictated Report Narrative: Operative Report Date of operation: 03/17/2019 Preoperative diagnosis: Anemia Postoperative diagnosis: Hiatal hernia, gastropathy (pathology and CLOtest pending) Operation: EGD with biopsies Surgeon: Dr Jason Anesthesia: PROSPER Martines CRNA Indications for procedure: The patient is an 88-year-old male who was brought to the emergency room after a fall at home with injuries to the face which were sutured. He is profoundly anemic--his hemoglobin has decreased steadily since November. He denies upper GI symptoms. He has never had a colonoscopy Findings: Hiatal hernia gastropathy (pathology pending). No obvious bleeding source found Narrative of procedure: The patient was identified preoperatively, and prior to the administration of anesthetic a multidisciplinary timeout was observed With the patient in the recumbent position, a bite-block was placed, intravenous sedation administered, and the patient's eyes covered with a towel. The flexible fiberoptic gastroscope was advanced into the posterior pharynx which appeared normal. There were a lot of thick secretions which were suctioned. The supraglottic larynx appeared normal. The cords appeared normal, moved well, and opposed in the midline. The scope was advanced under direct vision into the proximal esophagus which appeared normal. The esophagus appeared freely distensible with normal mucosa. The esophageal mucosa appeared normal down to the gastroesophageal junction which was sharp and noninflamed. The GE junction appeared normally distensible. There was a small sliding hiatal hernia. The scope was advanced into the stomach which was insufflated with air. There was mild blackburn gastric erythema but no mo ulcerations or neoplastic lesions appreciated including a retroflexed view of the gastric fundus. The scope was redirected toward the pylorus. The pylorus appeared patent. The scope was advanced into the duodenal bulb which appeared normal. The scope was advanced further to the horizontal portion of the duodenum which appeared normal, specifically the villous architecture appeared well preserved and clear bile was present. The scope was slowly withdrawn through the duodenal bulb with confirmation that no active ulcer was present. The scope was withdrawn into the stomach and loss prevention representative biopsies of gastric mucosa obtained for CLOtest and pathology. The biopsy sites were seen to be hemostatic. The insufflated air was removed, the scope withdrawn from the patient, and the procedure terminated. The patient tolerated the anesthetic and procedure well without complication and was transferred back to the floor awake and in stable condition. I shared the operative findings with him, and he was given copies of the photographs which appear in the medical record. I explained that the EGD findings would not explain his progressive drop in hemoglobin. I recommended that he undergo a colonoscopy as an outpatient after he recovers RECOMMENDATION: Colonoscopy as an outpatient on elective basis Reviewed and electronically signed
[2019-03-17] MEDS: SIMVASTATIN 20 MG TABLET PO SCH (20:31)
[2019-03-17] MEDS: diphenhydrAMINE HCL 25 MG CAPSULE PO PRN (21:24)
[2019-03-18] MEDS: oxyCODONE HCL/ACETAMINOPHEN 1 TAB TABLET PO PRN ×3 (03:42→23:02)
[2019-03-18] MEDS: TRIAMTERENE/HYDROCHLOROTHIAZID 1 TAB TABLET PO SCH (09:12)
[2019-03-18] MEDS: LEVOFLOXACIN 500 MG TABLET PO SCH (09:12)
[2019-03-18] MEDS: SUCRALFATE 1 G TABLET PO SCH ×4 (09:12→20:32)
[2019-03-18] MEDS: TIOTROPIUM BROMIDE 5 CAP INHALER IH SCH (09:13)
[2019-03-18] MEDS: FLUTICASONE PROPION/SALMETEROL 14 PUFF DISK.W.DEV IH SCH ×2 (09:13→20:31)
[2019-03-18] MEDS: POTASSIUM CHLORIDE 40 MEQ/15 ML LIQUID PO SCH (09:13)
[2019-03-18] MEDS: FUROSEMIDE 10 MG/ML VIAL IV SCH (09:13)
[2019-03-18] MEDS: FAMOTIDINE 20 MG TABLET PO SCH ×2 (09:13→20:33)
[2019-03-18] MEDS: POLYETHYLENE GLYCOL 3350 17 GM PACKET PO SCH (09:14)
[2019-03-18 13:10] LABS: Hemoglobin 9.6 gm/dL (13.5-18.0); Mean Cell Volume 95.1 fl (78-100); Mean Corpuscular Hemoglobin 31.5 pg (27-31); Mean Corpuscular Hgb Conc 33.1 g/dl (32-36); Mean Platelet Volume 8.6 fl (8-11.3); Platelet Count 346 K/mm3 (150-450); Red Blood Count 3.05 M/mm3 (4.7-6.0); White Blood Count 16.4 K/mm3 (4.0-10.5)
--- NOTE | 2019-03-18 13:15 | DS ---
(1) Acute blood loss anemia Problem: Acute (2) Syncope and collapse Problem: Acute (3) Acute upper GI bleed Problem: Acute (4) Symptomatic anemia Problem: Acute (5) Fall Problem: Acute Qualifiers: Encounter type: subsequent encounter Qualified Code(s): W19.XXXD - Unspecified fall, subsequent encounter (6) Atrial fibrillation Problem: Acute Qualifiers: Atrial fibrillation type: paroxysmal Qualified Code(s): I48.0 - Paroxysmal atrial fibrillation (7) Face lacerations Problem: Acute Qualifiers: Encounter type: subsequent encounter Qualified Code(s): S01.81XD - Laceration without foreign body of other part of head, subsequent encounter (8) Chronic pain syndrome Problem: Chronic (9) Low back pain Problem: Chronic Qualifiers: Chronicity: chronic Back pain laterality: midline Sciatica presence: without sciatica Qualified Code(s): M54.5 - Low back pain; G89.29 - Other chronic pain (10) CKD (chronic kidney disease) stage 3, GFR 30-59 ml/min Problem: Chronic Date of Discharge:: 03/19/19 Description of Stay: Vandana is an 88-year-old male admitted following a fall at home. He had walked out to get his mail and became progressively more lightheaded as he walked back towards the house and did not quite make it into his house. He fell about 6 inches in front of his threshold and face planted on the concrete sustaining lacerations and contusions to the face and a nasal bone fracture. He was brought to the emergency room where he is found to be anemic with a hemoglobin of 6.5 g. He received 1 unit of packed red blood cells which brought him up to 9.9 g initially. Then dropped to 9.8 g and then 9.1 g and then back to 9.6 g yesterday. This morning and has dropped to 8.8 g. His sodium had dropped to a low of 129 yesterday but is back to 131 this morning. He was very weak for the first couple of days but has progressively improved. Initially the plan was for him to go to [facility] but he has [employer] insurance and they made it difficult to get him placed and then the [facility] which shows elected not to accept him. By yesterday he had decided he did not want to try another [facility] but would just go home with home health. He will be discharged to home. [id number] note: He will need a 2 wheeled walker. The reason is is for poor balance with less restrictive assistive device. He is unable to lift a standard walker off the floor to advance. He has a history of the fall resulting in his admission here. His vision is poor. He is an anemic and has chronic kidney disease. He also lives alone. His safety awareness is fair. He will probably need this for the rest of his life. Mr. Lezama would benefit from use of a 2 wheeled walker for balance, safety, decrease fall risk for safe return home. Patient is not safe using a standard walker for ambulation secondary to increased fall risk by having to lift and advanced the walker. Patient is a higher fall risk patient and requires a stability that a 2 wheel walker provides during ambulation. Patient cannot also use a SPC for ambulation due to the limited stability and support. [id number] for home health: Joni Lundberg is confined to home due to weakness and poor balance. He does not drive. His glasses were broken during his fall and so his vision is impaired. He has multiple facial wounds that will need following. The need for [facility] is monitoring of vital signs, monitoring of anemia, monitoring of pneumonia, monitoring of healing of the facial wounds, diagnosis management education. The need for physical therapy is for limb strengthening, endurance improvement, gait training and balance training, and improving mobility. He will need to improve his ADLs to be safe. The need for occupational therapy is to improve ADLs and safety awareness. There is no need for speech therapy at this time. The need for home health care skilled services is directly related to the time spent [id number] with the patient. Procedures Performed: see notes below List Procedures: EGD by Dr. Jason Results and Findings: Pending Mircobiology Results 03/13/19 19:55 Blood Blood Culture - Preliminary NO GROWTH AFTER 48 HOURS 03/13/19 19:00 Blood Blood Culture - Preliminary NO GROWTH AFTER 48 HOURS Lab Pending Results 03/13/19 18:43: pCO2 41.2, pO2 95.2, HCO3 26.2, Total CO2 27.5 H, Base Excess 1.7, ABG pH 7.42, ABG O2 Sat (Measured) 97.4 03/13/19 19:00: WBC 13.8 H, RBC 2.40 L, Hgb 7.5 L*, Hct 22.8 L*, MCV 95.0, MCH 31.3 H, MCHC 32.9, RDW 12.8, Plt Count 310, MPV 8.5, Neutrophils % (Manual) 82 H, Lymphocytes % (Manual) 5 L, Monocytes % (Manual) 11 H, Eosinophils % (Manual) 1, Neutrophils # (Manual) 11.3 H, Lymphocytes # (Manual) 0.7 L, Monocytes # (Manual) 1.5 H, Eosinophils # (Manual) 0.1, Hypersegmented Polys Trace, Atypic/Reactive Lymphs 1, Platelet Estimate Normal, Anisocytosis 1+ 03/13/19 19:00: Sodium 129 L, Plasma Sodium 129 L, Potassium 3.1 L, Chloride 95 L, Carbon Dioxide 27.2, Anion Gap 9.9, BUN 22, Creatinine 1.58 H, Est GFR (Non- Af Amer) 44 L, BUN/Creatinine Ratio 13.9, Random Glucose 125 H, Calcium 7.8 L, Calcium Adj for Albumin 8.9, Total Bilirubin 0.2, AST 15, ALT 11 L, Alkaline Phosphatase 102, Troponin I 0.020, C-Reactive Prot, Quant 7.3 H, B-Natriuretic Peptide 2176 H, Total Protein 6.7, Albumin 2.2 L 03/13/19 19:00: Procalcitonin 0.08 03/13/19 19:00: Lactic Acid, Venous 1.9 03/13/19 : Blood Type A Positive, Antibody Screen Positive, Antibody Identification Warm Auto Antibody, Crossmatch See Detail 03/14/19 06:00: WBC 12.2 H, RBC 2.41 L, Hgb 7.5 L*, Hct 22.9 L*, MCV 95.0, MCH 31.1 H, MCHC 32.8, RDW 12.9, Plt Count 299, MPV 8.5, Immature Gran % (Auto) 1.00 H, Immature Gran # (Auto) 0.12 H, Neutrophils % 77.0 H, Neutrophils % (Manual) 76 H, Lymphocytes % 6.5 L, Lymphocytes % (Manual) 14 L, Monocytes % 14.7 H, Monocytes % (Manual) 7, Eosinophils % 0.6, Eosinophils % (Manual) 2, Basophils % 0.2, Nucleated RBC % 0.0, Immature Granulocytes 1, Neutrophils # 9.4 H, Neutrophils # (Manual) 9.3 H, Lymphocytes # 0.79 L, Lymphocytes # (Manual) 1.7, Monocytes # 1.8 H, Monocytes # (Manual) 0.9, Eosinophils # 0.1, Eosinophils # (Manual) 0.2, Absolute Basophils 0.0, Platelet Estimate Normal, RBC Morphology Normal 03/14/19 09:08: Sodium 132, Plasma Sodium 132, Potassium 2.9 L, Chloride 96 L, Carbon Dioxide 28.9, Anion Gap 10.0, BUN 19, Creatinine 1.37, Est GFR (Non-Af Amer) 52 L, BUN/Creatinine Ratio 13.9, Random Glucose 97, Calcium 8.5 03/14/19 10:16: Stool Occult Blood Positive H 03/15/19 03:00: Hgb 8.7 L, Hct 25.9 L 03/15/19 18:03: WBC 15.9 H D, RBC 3.19 L, Hgb 9.9 L, Hct 30.2 L, MCV 94.7, MCH 31.0, MCHC 32.8, RDW 13.2, Plt Count 336, MPV 9.3 03/16/19 06:00: WBC 13.8 H, RBC 2.93 L, Hgb 9.1 L, Hct 27.7 L, MCV 94.5, MCH 31.1 H, MCHC 32.9, RDW 13.1, Plt Count 327, MPV 8.5, Neutrophils % (Manual) 76 H, Band Neuts % (Manual) 2, Lymphocytes % (Manual) 5 L, Monocytes % (Manual) 13 H, Immature Granulocytes 2 H, Neutrophils # (Manual) 10.5 H, Lymphocytes # (Manual) 0.7 L, Monocytes # (Manual) 1.8 H, Hypersegmented Polys Trace, Atypic/Reactive Lymphs 2, Toxic Granulation 1+, Platelet Estimate Normal, Polychromasia 1+, Hypochromasia Trace, Basophilic Stippling Trace 03/16/19 06:16: Sodium 132, Plasma Sodium 132, Potassium 3.4, Chloride 96 L, Carbon Dioxide 28.1, Anion Gap 11.3, BUN 21, Creatinine 1.58 H, Est GFR (Non-Af Amer) 44 L, BUN/Creatinine Ratio 13.3, Random Glucose 105, Calcium 8.5 03/16/19 18:20: WBC 17.5 H D, RBC 3.08 L, Hgb 9.8 L, Hct 29.5 L, MCV 95.8, MCH 31.8 H, MCHC 33.2, RDW 13.1, Plt Count 387, MPV 8.5 03/17/19 06:41: WBC 14.8 H, RBC 2.90 L, Hgb 9.1 L, Hct 27.5 L, MCV 94.8, MCH 31.4 H, MCHC 33.1, RDW 13.0, Plt Count 364, MPV 8.7, Neutrophils % (Manual) 68, Lymphocytes % (Manual) 10 L, Monocytes % (Manual) 5, Eosinophils % (Manual) 1, Immature Granulocytes 7 H, Neutrophils # (Manual) 10.1 H, Lymphocytes # (Manual) 1.5, Monocytes # (Manual) 0.7, Eosinophils # (Manual) 0.1, Atypic/Reactive Lymphs 9 H, Platelet Estimate Normal, RBC Morphology Normal 03/17/19 06:41: Sodium 130 L, Plasma Sodium 130, Potassium 3.6, Chloride 96 L, Carbon Dioxide 29.4, Anion Gap 8.2, BUN 31 H, Creatinine 1.84 H, Est GFR (Non-Af Amer) 37 L, BUN/Creatinine Ratio 16.8, Random Glucose 111 H, Calcium 8.4, Calcium Adj for Albumin 9.4, Total Bilirubin 0.4, AST 17, ALT 15 L, Alkaline Phosphatase 98, Total Protein 7.2, Albumin 2.4 L 03/17/19 14:30: Pathology Specimen Sent to path Discharge Location: Home Disposition: [facility] Home Health Condition: Fair Face to Face Encounter completed per CMS Guidelines: No Discharge Activity: Activity as tolerated Discharge Diet: General/regular food, [facility] Therapy: Physical Therapy, Occupation Therapy Referrals: López Jaramillo DO [Primary Care Provider] - Consultation Done:: Dr. Jason Additional Patient Instructions (free text): [facility]- fax discharge summary, instructions and medications. Prescriptions (Any new or edited meds): oxyCODONE HCL/ACETAMINOPHEN [Percocet 5 MG/325 MG] 1 tab PO Q8H PRN #45 tab PRN Reason: Pain Complete Home Medications List: Complete Home Medication List: Aspirin [Aspirin Chewable] 81 mg PO DAILY 08/14/17 Polyethylene Glycol 3350 [Miralax] 17 gm PO DAILY #14 powd.pack 08/23/17 oxycodone-acetaminophen 10 mg-325 mg tablet 1 tab PO QID PRN #120 tab 03/13/19 Budesonide/Formoterol Fumarate [Symbicort 160-4.5 Mcg Inhaler] 2 puff INHALATION BID #1 03/18/19 Famotidine [Pepcid] 30 mg PO BID #60 tab 03/18/19 Fluticasone Propion/Salmeterol [Advair 500-50 Diskus] 1 puff INHALATION BID #1 disk.w.dev 03/18/19 Levofloxacin [Levaquin] 500 mg PO DAILY #10 tab 03/18/19 Potassium Chloride [Potassium Chloride 40 meq/15ml Liquid] 40 meq PO DAILY #150 liquid 03/18/19 Simvastatin [Zocor] 20 mg PO HS #30 tab 03/18/19 Sucralfate [Carafate] 1 g PO ACHS #48 tab 03/18/19 Tiotropium [place] [Spiriva Respimat 2.5 mcg/inhalation] 2 puff INHALATION DAILY #1 03/18/19 Triamterene/Hydrochlorothiazid [Maxzide 75 MG/50 MG] 1 tab PO DAILY #30 03/18/19 guaiFENesin [Guaifenesin ER] 600 mg PO BID #60 tab 03/18/19 oxyCODONE HCL/ACETAMINOPHEN [Percocet 5 MG/325 MG] 1 tab PO Q8H PRN #45 tab 03/18/19 Amb Orders for Discharge: Basic Metabolic Panel Time Frame: 1 Week, Facility: [facility], Location: Laboratory CBC Time Frame: 1 Week, Facility: [facility], Location: Laboratory
[2019-03-18 13:17] LABS: Total Cells Counted 100
[2019-03-18 13:23] LABS: Albumin * 2.6 gm/dl (3.4-5.0); Anion Gap 12.4 mmol/L (6.8-13.8); BUN/Creatinine Ratio 17.3 (9.0-21.6); Bilirubin, Total 0.5 mg/dL (0.0-1.1); Ca. Corrected For Albumin 9.6 mg/dL (8.4-10.2); Calcium * 8.8 mg/dL (7.9-10.9); Carbon Dioxide 25.9 mmol/L (24-32.6); Potassium 4.3 mmol/L (3.4-4.6); Total Protein 7.6 gm/dL (6.2-8.2)
[2019-03-18 13:36] LABS: Lymphocyte 9 % (20-51); Monocyte 6 % (0-9); Neutrophil 85 % (42-75); Neutrophil # 13.9 K/mm3 (1.3-6.0); Platelet Estimate Normal (NORMAL); RBC Morphology Normal (NORMAL)
[2019-03-18] MEDS: SIMVASTATIN 20 MG TABLET PO SCH (20:33)
--- NOTE | 2019-03-18 21:10 | PN ---
Subjective - Date and Time Seen Date: 03/18/19 Time: 08:00 Subjective Narrative: Mr. Lundberg has had a relatively good night. He has not had any new problems or complaints. He notes that he feels a little better today and may be a little stronger. He still feels unbalanced lightheaded when he stands up. He is able to ambulate with assistance from chair to bathroom and back. The only significant change in his lab work is that the sodium dropped a point to 129 this morning. This is probably from the IV Lasix he has been receiving. His hemoglobin is at 9.6 g up a half a gram from yesterday. This may be hemoconcentration from diuretics though. We were hoping to transfer him to a fdc the excepted [employer]'s insurance today. snf refused him this afternoon and Mr. Lundberg is decided not to try for a different fdc but will instead try to go home. He is advised that if it does not work out he can still go to prison in the next 30 days. Once again [employer]'s policies get in the way of appropriate patient care. I will repeat lab tomorrow morning. I discontinue the IV Lasix so he will not receive any today. He is on Maxide anyway. His neck is much less sore today. His facial bruises are yellowing. His facial lacerations are healing nicely. The sutures were removed today. Objective - Review of Systems Generalized/Overall Review: Reports: Weakness EENTM: Reports: No Symptoms Reported Respiratory: Reports: No Symptoms Reported Cardiac: Reports: No Symptoms Reported Abdominal: Reports: No Symptoms Reported Genitourinary Symptoms: Reports: No Symptoms Reported Musculoskeletal Complaints: Reports: Neck Pain - Improved today Neurological: Reports: No Symptoms Reported Skin: Reports: Other - Facial contusions and lacerations are fading and healing respectively. Endocrine: Reports: No Symptoms Reported - Vitals Vitals: Last Vital Signs Temp 36.8 C 03/18/19 19:11 Pulse 114 H 03/18/19 19:11 Resp 24 H 03/18/19 19:11 BP 148/76 03/18/19 19:11 Pulse Ox 96 03/18/19 19:11 - Abnormal Lab Findings Abnormal Lab Findings: Abnormal Lab Results 03/18/19 03/18/19 Range/Units 13:07 13:07 WBC 16.4 H (4.0-10.5) K/mm3 RBC 3.05 L (4.7-6.0) M/mm3 Hgb 9.6 L (13.5-18.0) gm/dL Hct 29.0 L (42.0-52.0) % MCH 31.5 H (27-31) pg Neutrophils % (Manual) 85 H (42-75) % Lymphocytes % (Manual) 9 L (20-51) % Neutrophils # (Manual) 13.9 H (1.3-6.0) K/mm3 Sodium 129 L (132-142) mmol/L Plasma Sodium 129 L (130-142) mmol/L Chloride 95 L (97-106) mmol/L BUN 31 H (6-23) mg/dL Creatinine 1.79 H (0.4-1.4) mg/dL Est GFR (Non-Af Amer) 38 L (60-130) mL/min Random Glucose 126 H (70-110) mg/dL ALT 13 L (19-67) U/L Albumin 2.6 L (3.4-5.0) gm/dl - EKG/Xray Findings EKG: NSR EKG read: Reviewed by me XRAY: facial bones Interpretation: Reviewed by me - Exam Constitutional: Present: Alert, Oriented x3, Cooperative, Well developed, Well nourished, No distress, Elderly ENT Exam: Present: normal ENT inspection, hearing grossly normal, pharynx normal, TMs normal Neck: Present: non-tender, limited range of motion Breasts: Present: Exam deferred Respiratory: Present: chest non-tender, no respiratory distress, no accessory muscle use, rhonchi - Much improved in the right chest. The left chest is clear, expiration (prolonged) Cardiovascular/Chest: Present: normal peripheral pulses, regular rate, rhythm - No atrial fib at this time, no chest tenderness, no edema, no gallop, no JVD, no murmur, no rub Abdomen: Present: Normal bowel sounds, soft, nontender, nondistended, no rebound tenderness, no hepatospenomegaly, no masses /Rectal: Present: Exam deferred, External genitalia normal Extremity: Present: normal range of motion, non-tender, normal inspection, no pedal edema, no calf tenderness, normal capillary refill Skin Exam: Present: normal color, warm/dry, no cyanosis Lymphatic: Present: no adenopathy 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 Continue current medical management. 2. Lasix discontinued 3. Recheck CBC and BMP tomorrow morning 4. Anticipate discharge to home tomorrow morning. - Problems/Diagnosis (1) Acute blood loss anemia Problem: Acute (2) Syncope and collapse Problem: Acute (3) Acute upper GI bleed Problem: Acute (4) Symptomatic anemia Problem: Acute (5) Fall Problem: Acute Qualifiers: Encounter type: subsequent encounter Qualified Code(s): W19.XXXD - Unspecified fall, subsequent encounter (6) Atrial fibrillation Problem: Acute Qualifiers: Atrial fibrillation type: paroxysmal Qualified Code(s): I48.0 - Paroxysmal atrial fibrillation (7) Face lacerations Problem: Acute Qualifiers: Encounter type: subsequent encounter Qualified Code(s): S01.81XD - Laceration without foreign body of other part of head, subsequent encounter (8) Chronic pain syndrome Problem: Chronic (9) Low back pain Problem: Chronic Qualifiers: Chronicity: chronic Back pain laterality: midline Sciatica presence: without sciatica Qualified Code(s): M54.5 - Low back pain; G89.29 - Other chronic pain (10) CKD (chronic kidney disease) stage 3, GFR 30-59 ml/min Problem: Chronic (11) Hyponatremia Problem: Resolved
[2019-03-18] MEDS: diphenhydrAMINE HCL 25 MG CAPSULE PO PRN (21:33)
[2019-03-19 06:25] LABS: Hematocrit 26.6 % (42.0-52.0); Hemoglobin 8.8 gm/dL (13.5-18.0); Mean Cell Volume 94.3 fl (78-100); Mean Corpuscular Hemoglobin 31.2 pg (27-31); Mean Corpuscular Hgb Conc 33.1 g/dl (32-36); Mean Platelet Volume 8.7 fl (8-11.3); Platelet Count 283 K/mm3 (150-450); Red Blood Count 2.82 M/mm3 (4.7-6.0); Red Cell Distribution Width 12.9 % (11.5-14.0); White Blood Count 12.6 K/mm3 (4.0-10.5)
[2019-03-19 06:30] LABS: Anion Gap 6.8 mmol/L (6.8-13.8); BUN/Creatinine Ratio 18.5 (9.0-21.6); Calcium * 8.3 mg/dL (7.9-10.9); Carbon Dioxide 29.7 mmol/L (24-32.6); Potassium 3.5 mmol/L (3.4-4.6)
[2019-03-19 06:33] LABS: Total Cells Counted 100
[2019-03-19] MEDS: SUCRALFATE 1 G TABLET PO SCH ×2 (06:50→11:10)
[2019-03-19 06:56] LABS: Atypical (Reactive) Lymph 5 % (0-2); Eosinophil 2 % (0-3); Lymphocyte 7 % (20-51); Monocyte 15 % (0-9); Neutrophil 71 % (42-75); Neutrophil # 8.9 K/mm3 (1.3-6.0)
[2019-03-19 06:57] LABS: Anisocytosis Trace; Hypochromia Trace; Platelet Estimate Normal (NORMAL)
[2019-03-19] MEDS: oxyCODONE HCL/ACETAMINOPHEN 1 TAB TABLET PO PRN (07:07)
[2019-03-19] MEDS: LEVOFLOXACIN 500 MG TABLET PO SCH (09:07)
[2019-03-19] MEDS: FLUTICASONE PROPION/SALMETEROL 14 PUFF DISK.W.DEV IH SCH (09:07)
[2019-03-19] MEDS: TRIAMTERENE/HYDROCHLOROTHIAZID 1 TAB TABLET PO SCH (09:07)
[2019-03-19] MEDS: TIOTROPIUM BROMIDE 5 CAP INHALER IH SCH (09:08)
[2019-03-19] MEDS: POTASSIUM CHLORIDE 40 MEQ/15 ML LIQUID PO SCH (09:08)
[2019-03-19] MEDS: POLYETHYLENE GLYCOL 3350 17 GM PACKET PO SCH (09:08)
[2019-03-19] MEDS: FAMOTIDINE 20 MG TABLET PO SCH (09:08)
[2019-03-19] MEDS ORDERED: oxyCODONE HCL/ACETAMINOPHEN 1 TAB TABLET PO PRN (09:45)
[2019-03-19 10:36] VITALS: BP 107/45
== END 2019-03-19 12:35 | disposition home health service (06) | DRG 377 ==
LOC: MS 18:29 → ER 18:29 → OBSVTOIN 21:23 → MS 21:57
PROVIDERS: ADMIT Family Medicine; ATTEND Family Medicine
DX: K44.9 Diaphragmatic hernia without obstruction or gangrene; W18.30XA Fall on same level, unspecified, initial encounter; J18.9 Pneumonia, unspecified organism; Z87.891 Personal history of nicotine dependence; K92.2 Gastrointestinal hemorrhage, unspecified; D62 Acute posthemorrhagic anemia; E87.1 Hypo-osmolality and hyponatremia; I13.0 Hypertensive heart and chronic kidney disease with heart failure and stage 1 through stage 4 chronic kidney disease, or unspecified chronic kidney disease; S01.21XA Laceration without foreign body of nose, initial encounter; S01.81XA Laceration without foreign body of other part of head, initial encounter; S02.2XXA Fracture of nasal bones, initial encounter for closed fracture; N18.3 Chronic kidney disease, stage 3 (moderate); J41.8 Mixed simple and mucopurulent chronic bronchitis; M54.5 Low back pain; I50.9 Heart failure, unspecified; R19.5 Other fecal abnormalities; R55 Syncope and collapse; G89.4 Chronic pain syndrome; I48.0 Paroxysmal atrial fibrillation
CPT/HCPCS: 36415; 36600; 70450; 70486; 71020; 71046; 72125; 80048; 80053; 81479; 82272; 82803; 83519; 83605; 83880; 84145; 84484; 85007; 85014; 85018; 85025; 85027; 86140; 86850; 86870; 87040; 87081; 88305; 88312; 88313; 93005; 94760; 97110; 97116; 97161; 97530; 99285; G0378; J2405; P9016

== ENCOUNTER 2019-04-20 19:38 | Inpatient (IN) ==
[2019-04-20] MEDS ORDERED: METHYLPREDNISOLONE SOD SUCC/PF 125 MG/2 ML VIAL IV ONE (20:08)
[2019-04-20] MEDS ORDERED: ALBUTEROL SULFATE/IPRATROPIUM 3 ML NEBU IH ONE (20:08)
[2019-04-20] MEDS ORDERED: NORMAL SALINE 1,000 ML IV ONE (20:08)
[2019-04-20] MEDS ORDERED: ONDANSETRON HCL/PF 2 MG/ML VIAL IV ONE (20:08)
--- NOTE | 2019-04-20 20:08 | ERNOTE ---
Medical Problem HPI - Narrative Date of Service: 04/20/19 - General Chief Complaint: Nausea/Vomiting Time Seen by Provider: 04/20/19 19:54 Source: patient, family - Immun/Allergies/Home Medications Immunizations: IMMUNIZATION HX Immunizations Up to Date Yes History of Influenza Vaccine Yes Hx Pneumococcal Vaccination Yes Allergies/Adverse Reactions: Allergies No Known Allergies Allergy (Verified 03/26/19 09:44) Home Medications: HOME MEDICATIONS Aspirin [Aspirin Chewable] 81 mg PO DAILY 08/14/17 [Last Taken 03/13/19 09:00] Polyethylene Glycol 3350 [Miralax] 17 gm PO DAILY #14 powd.pack 08/23/17 [Last Taken 03/12/19 21:00] Budesonide/Formoterol Fumarate [Symbicort 160-4.5 Mcg Inhaler] 2 puff INHALATION BID #1 03/18/19 [Last Taken Unknown] Potassium Chloride [Potassium Chloride 40 meq/15ml Liquid] 40 meq PO DAILY #150 liquid 03/18/19 [Last Taken Unknown] Sucralfate [Carafate] 1 g PO ACHS #48 tab 03/18/19 [Last Taken Unknown] Tiotropium [place] [Spiriva Respimat 2.5 mcg/inhalation] 2 puff INHALATION DAILY #1 03/18/19 [Last Taken Unknown] Triamterene/Hydrochlorothiazid [Maxzide 75 MG/50 MG] 1 tab PO DAILY #30 03/18/19 [Last Taken Unknown] guaiFENesin [Guaifenesin ER] 600 mg PO BID #60 tab 03/18/19 [Last Taken Unknown] cefuroxime axetil 500 mg tablet 500 mg PO BID #20 tab 03/26/19 [Last Taken Unknown] famotidine 20 mg tablet 20 mg PO BID 42 Days #84 tab 03/26/19 [Last Taken Unknown] pravastatin 40 mg tablet 40 mg PO DAILY #90 tab 03/26/19 [Last Taken Unknown] oxycodone-acetaminophen 10 mg-325 mg tablet 1 tab PO QID PRN #120 tab 04/02/19 [Last Taken Unknown] - History of Present History Narrative: 88-year-old male brought to the emergency room by his daughter complaining of vomiting all afternoon to the point where he is dry heaving green no diarrhea or pain no fever no chills he also states that his been vomiting on and off since the first of the year he was just treated for pneumonia first on Levaquin and then on a second antibiotic that will remember he is also having some shortness of breath which is chronic because of his COPD but he says it is worse than usual and he feels weak The antibiotic gotten which she was changed to cefuroxime 500 mg twice daily Date (Duration): 04/20/19 Time (Timing): 20:02 Timing: constant, getting worse Severity: moderate Modifying Factors - (Improves): Present: other Modifying Factors - (Worsens): Present: other Review of Systems - Review of Systems Constitutional: Present: weakness, fatigue EYE: Present: no symptoms reported ENT: Present: no symptoms reported Respiratory: Present: shortness of breath, cough, wheezing Cardiology: Present: palpitations Gastrointestinal/Abdominal: Present: nausea, vomiting Genitourinary: Present: no symptoms reported Musculoskeletal: Present: no symptoms reported Skin: Present: no symptoms reported Neurological: Present: no symptoms reported Endocrine: Present: no symptoms reported Hematologic/Lymphatic: Present: no symptoms reported All Other Systems: All systems neg except as marked Medical History (Last Reviewed 04/20/19 @ 20:04 by Johnny Vegas MD) GERD with esophagitis (Chronic) Prostatism (Chronic) He is getting up 3-4 times a night. He has urgency with urination but no dysuria. He does not void normal volumes as it seems to be smaller volume than usual. I expect he is not completely emptying his bladder. Emphysema with chronic bronchitis (Chronic) Chronic pain syndrome (Chronic) Hyperlipidemia (Chronic) Hypertension (Chronic) Low back pain (Chronic) There is occasional sciatica down the right leg. 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) Hummel palsy CHF (congestive heart failure) COPD (chronic obstructive pulmonary disease) Colonoscopy refused Constipation High cholesterol Hx-TIA (transient ischemic attack) Hypertension Low back pain Shingles Surgical History: Surgical History (Last Reviewed 04/20/19 @ 20:04 by Johnny Vegas MD) History of appendectomy H/O hemorrhoidectomy History of back surgery History of esophagogastroduodenoscopy (EGD) Onset Date: 03/17/19 03/17/19 Bagan-clotest negative, moderate benign reactive gastropathy/chemical gastritis. Hiatal hernia. Hx of hernia repair Family History: Family History (Last Reviewed 03/26/19 @ 09:45 by Cristina Pedersen RN) Father Myocardial infarction Social History: (Last Updated 03/30/19 @ 11:20 by López Jaramillo DO) Social History: Marital status: household members: none current occupational status: retired Highest education level completed: 8th grade Service: Yes branch: [employer] Tobacco: Smoking Status: Former smoker Alcohol: alcohol intake: never Substance Use: substance use type: does not use Dietary Habits: caffeine: Yes Type: coffee Physical Exam - Physical Exam General Appearance: Present: wd/wn, alert, moderate distress Head Exam: Present: normal inspection Eye Exam: Normal inspection: bilateral Ears, Nose, Throat: Present: normal except -, pharyngeal erythema, dry mucous membranes Neck: Present: normal inspection, supple Respiratory: Present: chest nontender, respiratory distress, crackles, rhonchi, wheezing, other - Right lung worse than the left Cardiovascular/Chest: Present: regular rate, rhythm, tachycardia Peripheral Pulses: N=norm/S=strong/W=weak/B=bound/A=absent: Carotid (R): Normal, Carotid (L): Normal Gastrointestinal/Abdominal: Present: nontender, nondistended, soft. Absent: tenderness, abnormal bowel sounds Back Exam: Present: normal inspection, other - Back surgery scars Neurological Exam: Present: alert, oriented, no motor/sensory deficits Skin Exam: Present: normal color, warm/dry Lymphatic Exam: Present: no adenopathy Progress - Results and Orders Patient's Lab Results:: I have reviewed the patient's lab results. Results and Orders: Laboratory Tests 04/20/19 04/20/19 04/20/19 20:25 20:25 20:35 WBC 24.2 H RBC 3.16 L Hgb 9.5 L Hct 29.1 L MCV 92.1 MCH 30.1 MCHC 32.6 RDW 14.7 H Plt Count 213 Neutrophils % (Manual) 88 H Band Neuts % (Manual) 1 Lymphocytes % (Manual) 2 L Monocytes % (Manual) 8 pCO2 30.8 L pO2 55.8 L HCO3 22.1 Total CO2 23.0 Base Excess -1.0 ABG pH 7.47 H ABG O2 Sat (Measured) 91.3 L Sodium 133 Plasma Sodium 134 Potassium 3.5 Chloride 98 Carbon Dioxide 24.1 Anion Gap 14.4 H BUN 24 H Creatinine 1.68 H Est GFR (Non-Af Amer) 41 L BUN/Creatinine Ratio 14.3 Random Glucose 186 H Calcium 8.4 Calcium Adj for Albumin 9.0 Total Bilirubin 0.5 AST 14 ALT 9 L Alkaline Phosphatase 104 Troponin I Less than 0.017 B-Natriuretic Peptide 645 Total Protein 7.7 Albumin 2.9 L Group A Strep Rapid 04/20/19 20:40 WBC RBC Hgb Hct MCV MCH MCHC RDW Plt Count Neutrophils % (Manual) Band Neuts % (Manual) Lymphocytes % (Manual) Monocytes % (Manual) pCO2 pO2 HCO3 Total CO2 Base Excess ABG pH ABG O2 Sat (Measured) Sodium Plasma Sodium Potassium Chloride Carbon Dioxide Anion Gap BUN Creatinine Est GFR (Non-Af Amer) BUN/Creatinine Ratio Random Glucose Calcium Calcium Adj for Albumin Total Bilirubin AST ALT Alkaline Phosphatase Troponin I B-Natriuretic Peptide Total Protein Albumin Group A Strep Rapid Negative - Vital Signs Patient's Vital Signs:: I have reviewed the patient's vital signs. Vital Signs: Vital Signs 04/20/19 19:41 Temperature 36.5 C Pulse Rate 118 H Respiratory Rate 24 H Blood Pressure 105/38 O2 Sat by Pulse Oximetry 88 L Hypoxic increased respiratory rate tachycardic - EKG EKG #1 EKG: NSR, supraventricular tachycardia EKG read: Interp. by me EKG Comments: Sinus tachycardia with some APCs heart rate 122 no acute changes - X-Ray X-Ray #1 X-Ray: chest Interpretation: Interp. by me X-ray Comments: When compared to x-ray of March 17 there is an increase in the lung markings in the right lower lobe consistent with new infiltrate and also possible left lower lobe infiltrate - Progress/Reassessment Chief Complaint: Nausea/Vomiting Plan - Plan Plan: Plan for this patient is to admit to the hospital begin Rocephin and possibly azithromycin due to the reoccurrence of pneumonia and is vomiting excepted Departure Clinical Impression: Pneumonia, Intractable vomiting, Exacerbation of chronic obstructive pulmonary disease associated with exposure to volcanic air pollution, Recurrent pneumonia - Departure Disposition: Short Term Hospital Inpatient Condition: Fair Referrals: López Jaramillo DO [Primary Care Provider] -
[2019-04-20 20:26] LABS: Hematocrit 29.1 % (42.0-52.0); Hemoglobin 9.5 gm/dL (13.5-18.0); Mean Cell Volume 92.1 fl (78-100); Mean Corpuscular Hemoglobin 30.1 pg (27-31); Mean Corpuscular Hgb Conc 32.6 g/dl (32-36); Mean Platelet Volume 8.7 fl (8-11.3); Platelet Count 213 K/mm3 (150-450); Red Blood Count 3.16 M/mm3 (4.7-6.0); Red Cell Distribution Width 14.7 % (11.5-14.0); White Blood Count 24.2 K/mm3 (4.0-10.5)
[2019-04-20 20:30] LABS: Total Cells Counted 100
[2019-04-20 20:42] LABS: Band 1 % (0-2.0); Immature Granulocyte 1 (0-1); Lymphocyte 2 % (20-51); Monocyte 8 % (0-9); Neutrophil 88 % (42-75); Neutrophil # 21.3 K/mm3 (1.3-6.0)
[2019-04-20 20:43] LABS: Hypochromia 1+
[2019-04-20 20:44] LABS: Anisocytosis Trace; Platelet Estimate Normal (NORMAL); Toxic Granulation Trace
[2019-04-20 20:46] LABS: ALT 9 U/L (19-67); AST 14 U/L (0-48); Albumin * 2.9 gm/dl (3.4-5.0); Alkaline Phosphatase * 104 U/L (50-170); Anion Gap 14.4 mmol/L (6.8-13.8); BNP * 645 pg/mL (5-650); BUN/Creatinine Ratio 14.3 (9.0-21.6); Bilirubin, Total 0.5 mg/dL (0.0-1.1); Blood Urea Nitrogen 24 mg/dL (6-23); Calcium * 8.4 mg/dL (7.9-10.9); Carbon Dioxide 24.1 mmol/L (24-32.6); Chloride 98 mmol/L (97-106); Glucose * 186 mg/dL (70-110); Potassium 3.5 mmol/L (3.4-4.6); Sodium 133 mmol/L (132-142); Total Protein 7.7 gm/dL (6.2-8.2)
[2019-04-20 20:48] LABS: Troponin I Less than 0.017 ng/mL (0.00-0.10)
[2019-04-20] MEDS ORDERED: cefTRIAXone SODIUM 1,000 MG/100 ML BAG IV ONE (21:13)
[2019-04-20] MEDS ORDERED: diphenhydrAMINE HCL 25 MG CAPSULE PO PRN (23:00)
[2019-04-20] MEDS ORDERED: POLYETHYLENE GLYCOL 3350 119 GM BTL PO SCH (23:03)
[2019-04-20] MEDS ORDERED: POLYETHYLENE GLYCOL 3350 17 GM PACKET PO SCH (23:15)
[2019-04-20] MEDS: oxyCODONE HCL/ACETAMINOPHEN 1 TAB TABLET PO PRN (23:23)
[2019-04-20] MEDS: oxyCODONE HCL 5 MG TABLET PO PRN (23:24)
[2019-04-21] MEDS: oxyCODONE HCL 5 MG TABLET PO PRN ×3 (10:23→22:37)
[2019-04-21] MEDS: oxyCODONE HCL/ACETAMINOPHEN 1 TAB TABLET PO PRN ×3 (10:23→22:37)
[2019-04-21] MEDS ORDERED: oxyCODONE HCL/ACETAMINOPHEN 1 TAB TABLET PO PRN (10:52)
[2019-04-21] MEDS ORDERED: ENOXAPARIN SODIUM 40 MG/0.4 ML SYRG SC SCH (11:00)
[2019-04-21] MEDS: ENOXAPARIN SODIUM 40 MG/0.4 ML SYRG SC SCH (11:21)
[2019-04-21] MEDS: FLUTICASONE PROPION/SALMETEROL 14 PUFF DISK.W.DEV IH SCH ×2 (11:22→20:27)
[2019-04-21] MEDS: FAMOTIDINE 20 MG TABLET PO SCH ×2 (11:22→20:27)
--- NOTE | 2019-04-21 13:16 | HP ---
Chief Complaint - Chief Complaint Date of Service: 04/21/19 Time of Service: 13:00 Chief Complaint: pneumonia History of Present Illness: Adriana Lundberg is an 88 yo. wh male who has had pneumonia and was recovering but has relapsed. Yesterday he had weakness, SOB and coughing. He was febrile yesterday. He also reports that he is having episodic vomiting without nausea. Has been occuring about daily. Medical History (Last Reviewed 04/20/19 @ 20:04 by Johnny Vegas MD) GERD with esophagitis (Chronic) Prostatism (Chronic) He is getting up 3-4 times a night. He has urgency with urination but no dysuria. He does not void normal volumes as it seems to be smaller volume than usual. I expect he is not completely emptying his bladder. Emphysema with chronic bronchitis (Chronic) Chronic pain syndrome (Chronic) Hyperlipidemia (Chronic) Hypertension (Chronic) Low back pain (Chronic) There is occasional sciatica down the right leg. 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) Hummel palsy CHF (congestive heart failure) COPD (chronic obstructive pulmonary disease) Colonoscopy refused Constipation High cholesterol Hx-TIA (transient ischemic attack) Hypertension Low back pain Shingles Surgical History: Surgical History (Last Reviewed 04/20/19 @ 20:04 by Johnny Vegas MD) History of appendectomy H/O hemorrhoidectomy History of back surgery History of esophagogastroduodenoscopy (EGD) Onset Date: 03/17/19 03/17/19 Bagan-clotest negative, moderate benign reactive gastropathy/chemical gastritis. Hiatal hernia. Hx of hernia repair Family History: Family History (Last Reviewed 03/26/19 @ 09:45 by Cristina Pedersen RN) Father Myocardial infarction Social History: (Last Updated 03/30/19 @ 11:20 by López Jaramillo DO) Social History: Marital status: household members: none current occupational status: retired Highest education level completed: 8th grade Service: Yes branch: [employer] Tobacco: Smoking Status: Former smoker Alcohol: alcohol intake: never Substance Use: substance use type: does not use Dietary Habits: caffeine: Yes Type: coffee Review Of Systems (GEN) - Review of Systems Generalized/Overall Review: Present: Weakness, Fever, Malaise, Fatigue EENTM: Present: No Symptoms Reported Respiratory: Present: Cough, Shortness of Breath Cardiac: Present: No Symptoms Reported Abdominal: Present: Vomiting Genitourinary: Present: No Symptoms Reported Musculoskeletal: Present: No Symptoms Reported Neurological: Present: No Symptoms Reported, Weakness Skin: Present: No Symptoms Reported Endocrine: Present: No Symptoms Reported Immunizations: IMMUNIZATION HX Immunizations Up to Date Yes History of Influenza Vaccine Yes Hx Pneumococcal Vaccination Yes Allergies/Adverse Reactions: Allergies Allergy/AdvReac Type Severity Reaction Status Date / Time No Known Allergies Allergy Verified 03/26/19 09:44 Home Medications: HOME MEDICATIONS Aspirin [Aspirin Chewable] 81 mg PO DAILY 08/14/17 [Last Taken 03/13/19 09:00] Budesonide/Formoterol Fumarate [Symbicort 160-4.5 Mcg Inhaler] 2 puff INHALATION BID #1 03/18/19 [Last Taken Unknown] Tiotropium [place] [Spiriva Respimat 2.5 mcg/inhalation] 2 puff INHALATION DAILY #1 03/18/19 [Last Taken Unknown] Triamterene/Hydrochlorothiazid [Maxzide 75 MG/50 MG] 1 tab PO DAILY #30 03/18/19 [Last Taken Unknown] famotidine 20 mg tablet 20 mg PO BID 42 Days #84 tab 03/26/19 [Last Taken Unknown] pravastatin 40 mg tablet 40 mg PO DAILY #90 tab 03/26/19 [Last Taken Unknown] oxycodone-acetaminophen 10 mg-325 mg tablet 1 tab PO QID PRN #120 tab 04/02/19 [Last Taken Unknown] Diphenhydramine HCl [Wal-Dryl] 25 mg PO HS PRN 04/20/19 [Last Taken Unknown] Polyethylene Glycol 3350 [Miralax] 17 gm PO HS 04/21/19 [Last Taken Unknown] Exam - Exam Vital Signs: Vital Signs - Last Taken Temp 35.9 C L 04/21/19 10:31 Pulse 87 04/21/19 12:01 Resp 14 04/21/19 10:31 BP 109/37 04/21/19 10:31 Pulse Ox 96 04/21/19 10:31 Constitutional: Present: Alert, Oriented x3, Cooperative, Well developed, Well nourished, No distress ENT Exam: Present: normal ENT inspection, pharynx normal, TMs normal, hard of hearing Eye Exam: bilateral eye: normal inspection, PERRL, EOMI Neck: Present: non-tender, limited range of motion Back Exam: Present: decreased range of motion, vertebral tenderness Breasts: Present: Exam deferred, Nontender Respiratory: Present: chest non-tender, crackles, rhonchi - in both bases Cardiovascular/Chest: Present: normal peripheral pulses, regular rate, rhythm, no chest tenderness, no edema, no gallop, no JVD, no murmur, no rub Peripheral Pulses: carotid (R): 2+, carotid (L): 2+, radial (R): 2+, radial (L): 2+ Abdomen: Present: Normal bowel sounds, soft, nontender, nondistended, no rebound tenderness, no hepatospenomegaly, no masses /Rectal: Present: Exam deferred, External genitalia normal Extremity: Present: normal range of motion, non-tender, normal inspection, no pedal edema, no calf tenderness, normal capillary refill Skin Exam: Present: normal color, warm/dry, no cyanosis Lymphatic: Present: no adenopathy Neurologic: Present: pelletizer II-XII nml as tested, normal cerebellar test, no motor/sensory deficits, alert, normal mood/affect Appearance: Present: appropriate appearance, appropriate insight, neat, no memory impairment, disheveled Eye contact: Present: cooperative, good eye contact, normal speech Thoughts: Present: normal thought pattern, no apparent hallucination Diagnostic Studies: Abnormal Lab Results 04/20/19 04/20/19 04/20/19 Range/Units 20:25 20:25 20:35 WBC 24.2 H (4.0-10.5) K/mm3 RBC 3.16 L (4.7-6.0) M/mm3 Hgb 9.5 L (13.5-18.0) gm/dL Hct 29.1 L (42.0-52.0) % RDW 14.7 H (11.5-14.0) % Neutrophils % (Manual) 88 H (42-75) % Lymphocytes % (Manual) 2 L (20-51) % Neutrophils # (Manual) 21.3 H (1.3-6.0) K/mm3 Lymphocytes # (Manual) 0.5 L (1.5-3.5) k/mm3 Monocytes # (Manual) 1.9 H (0.0-1.0) k/mm3 pCO2 30.8 L (35.0-48.0) mmHg pO2 55.8 L (83.0-108.0) mmHg ABG pH 7.47 H (7.35-7.45) ABG O2 Sat (Measured) 91.3 L (94.0-98.0) % Anion Gap 14.4 H (6.8-13.8) mmol/L BUN 24 H (6-23) mg/dL Creatinine 1.68 H (0.4-1.4) mg/dL Est GFR (Non-Af Amer) 41 L (60-130) mL/min Random Glucose 186 H (70-110) mg/dL ALT 9 L (19-67) U/L Albumin 2.9 L (3.4-5.0) gm/dl Laboratory Results WBC 24.2 K/mm3 (4.0-10.5) H 04/20/19 20:25 RBC 3.16 M/mm3 (4.7-6.0) L 04/20/19 20:25 Hgb 9.5 gm/dL (13.5-18.0) L 04/20/19 20:25 Hct 29.1 % (42.0-52.0) L 04/20/19 20:25 MCV 92.1 fl (78-100) 04/20/19 20:25 MCH 30.1 pg (27-31) 04/20/19 20:25 MCHC 32.6 g/dl (32-36) 04/20/19 20:25 RDW 14.7 % (11.5-14.0) H 04/20/19 20:25 Plt Count 213 K/mm3 (150-450) 04/20/19 20:25 MPV 8.7 fl (8-11.3) 04/20/19 20:25 Neutrophils % (Manual) 88 % (42-75) H 04/20/19 20:25 Band Neuts % (Manual) 1 % (0-2.0) 04/20/19 20:25 Lymphocytes % (Manual) 2 % (20-51) L 04/20/19 20:25 Monocytes % (Manual) 8 % (0-9) 04/20/19 20:25 Immature Granulocytes 1 (0-1) 04/20/19 20:25 Neutrophils # (Manual) 21.3 K/mm3 (1.3-6.0) H 04/20/19 20:25 Lymphocytes # (Manual) 0.5 k/mm3 (1.5-3.5) L 04/20/19 20:25 Monocytes # (Manual) 1.9 k/mm3 (0.0-1.0) H 04/20/19 20:25 Toxic Granulation Trace 04/20/19 20: Toxic Vacuolation Trace 04/20/19 20: Platelet Estimate Normal (NORMAL) 04/20/19 20: Hypochromasia 1+ 04/20/19 20: Anisocytosis Trace 04/20/19 20: pCO2 30.8 mmHg (35.0-48.0) L 04/20/19 20:35 pO2 55.8 mmHg (83.0-108.0) L 04/20/19 20:35 HCO3 22.1 mmol/L (21.0-28.0) 04/20/19: Total CO2 23.0 mmol/L (19.0-24.0) 04/20/19 20:35 Base Excess -1.0 mmol/L (-2.0-3.0) 04/20/19 20:35 ABG pH 7.47 (7.35-7.45) H 04/20/19 20:35 ABG O2 Sat (Measured) 91.3 % (94.0-98.0) L 04/20/19 20:35 Sodium 133 mmol/L (132-142) 04/20/19 20: Plasma Sodium 134 mmol/L (130-142) 04/20/19 20:25 Potassium 3.5 mmol/L (3.4-4.6) 04/20/19 20: Chloride 98 mmol/L (97-106) 04/20/19: Carbon Dioxide 24.1 mmol/L (24-32.6) 04/20/19 20: Anion Gap 14.4 mmol/L (6.8-13.8) H 04/20/19 20:25 BUN 24 mg/dL (6-23) H 04/20/19 20: Creatinine 1.68 mg/dL (0.4-1.4) H 04/20/19 20:25 Est GFR (Non-Af Amer) 41 mL/min (60-130) L 04/20/19 20:25 BUN/Creatinine Ratio 14.3 (9.0-21.6) 04/20/19 20:25 Random Glucose 186 mg/dL (70-110) H 04/20/19 20:25 Calcium 8.4 mg/dL (7.9-10.9) 04/20/19 20: Calcium Adj for Albumin 9.0 mg/dL (8.4-10.2) 04/20/19 20:25 Total Bilirubin 0.5 mg/dL (0.0-1.1) 04/20/19 20:25 AST 14 U/L (0-48) 04/20/19 20:25 ALT 9 U/L (19-67) L 04/20/19 20: Alkaline Phosphatase 104 U/L (50-170) 04/20/19 20: Troponin I Less than 0.017 ng/mL (0.00-0.10) 04/20/19 20: B-Natriuretic Peptide 645 pg/mL (5-650) 04/20/19 20:25 Total Protein 7.7 gm/dL (6.2-8.2) 04/20/19 20:25 Albumin 2.9 gm/dl (3.4-5.0) L 04/20/19 20:25 Group A Strep Rapid Negative (NEGATIVE) 04/20/19 20:40 Assessment/Plan - Narrative Narrative: 1. Continue IV ABX 2. VTE ordered 3. advance to reg. diet 4. Admit orders and meds reconciled. - Assessment/Plan (1) Intractable vomiting Problem: Acute Qualifiers: Nausea presence: without nausea (2) Pneumonia Problem: Acute Qualifiers: Pneumonia type: due to unspecified organism Laterality: bilateral Lung location: lower lobe of lung Qualified Code(s): J18.9 - Pneumonia, unspecified organism (3) History of CHF (congestive heart failure) Problem: Acute (4) CKD (chronic kidney disease) stage 3, GFR 30-59 ml/min Problem: Chronic
[2019-04-21 20:27] LABS: Urine Bilirubin Negative (NEGATIVE); Urine Blood Negative /ul (NEGATIVE); Urine Ketone Negative (NEGATIVE); Urine Nitrite Negative (NEGATIVE); Urine Protein Negative (NEGATIVE); Urine Urobilinogen Normal (NORMAL)
[2019-04-21] MEDS: POLYETHYLENE GLYCOL 3350 17 GM PACKET PO SCH (20:27)
[2019-04-21 20:40] LABS: Urine Appearance Slightly Cloudy (CLEAR); Urine Bacteria None Seen; Urine Color Dark Yellow; Urine RBC None Seen /hpf (0-5); Urine WBC 0-5 /hpf (0-5)
[2019-04-21] MEDS ORDERED: POLYETHYLENE GLYCOL 3350 17 GM PACKET PO SCH (21:00)
[2019-04-22] MEDS: oxyCODONE HCL 5 MG TABLET PO PRN ×3 (07:06→19:14)
[2019-04-22] MEDS: oxyCODONE HCL/ACETAMINOPHEN 1 TAB TABLET PO PRN ×3 (07:07→19:14)
[2019-04-22 07:09] LABS: Hematocrit 25.4 % (42.0-52.0); Hemoglobin 8.2 gm/dL (13.5-18.0); Mean Cell Volume 92.7 fl (78-100); Mean Corpuscular Hemoglobin 29.9 pg (27-31); Mean Corpuscular Hgb Conc 32.3 g/dl (32-36); Mean Platelet Volume 9.4 fl (8-11.3); Platelet Count 206 K/mm3 (150-450); Red Blood Count 2.74 M/mm3 (4.7-6.0); Red Cell Distribution Width 14.7 % (11.5-14.0); White Blood Count 17.8 K/mm3 (4.0-10.5)
[2019-04-22 07:11] LABS: Total Cells Counted 100
[2019-04-22 07:15] LABS: Albumin * 2.4 gm/dl (3.4-5.0); BUN/Creatinine Ratio 18.9 (9.0-21.6); Bilirubin, Total 0.2 mg/dL (0.0-1.1); Ca. Corrected For Albumin 9.1 mg/dL (8.4-10.2); Calcium * 8.1 mg/dL (7.9-10.9); Carbon Dioxide 28.2 mmol/L (24-32.6); Total Protein 6.6 gm/dL (6.2-8.2)
[2019-04-22 07:32] LABS: Atypical (Reactive) Lymph 4 % (0-2); Lymphocyte 1 % (20-51); Monocyte 11 % (0-9); Neutrophil 84 % (42-75)
[2019-04-22 07:33] LABS: Anisocytosis 2+; Hypochromia 1+; Platelet Estimate Normal (NORMAL)
[2019-04-22 07:48] LABS: Potassium 4.2 mmol/L (3.4-4.6)
[2019-04-22] MEDS: ASPIRIN 81 MG TAB.CHEW PO SCH (10:39)
[2019-04-22] MEDS: TRIAMTERENE/HYDROCHLOROTHIAZID 1 TAB TABLET PO SCH (10:39)
[2019-04-22] MEDS: ENOXAPARIN SODIUM 40 MG/0.4 ML SYRG SC SCH (10:39)
[2019-04-22] MEDS: FLUTICASONE PROPION/SALMETEROL 14 PUFF DISK.W.DEV IH SCH ×2 (10:39→21:27)
[2019-04-22] MEDS: FAMOTIDINE 20 MG TABLET PO SCH ×2 (10:39→21:27)
[2019-04-22] MEDS: TIOTROPIUM BROMIDE 5 CAP INHALER IH SCH (10:39)
--- NOTE | 2019-04-22 18:13 | PN ---
Subjective - Date and Time Seen Date: 04/22/19 Time: 13:10 Subjective Narrative: Joni continues to feel better. He is feeling strong enough to start walking now. He is not had any more vomiting episodes. His morning lab is uneventful. Objective - Review of Systems Generalized/Overall Review: Reports: Weakness, Malaise EENTM: Reports: No Symptoms Reported Respiratory: Reports: Cough, Shortness of Breath Cardiac: Reports: No Symptoms Reported Abdominal: Reports: No Symptoms Reported, Vomiting - None today so far. Genitourinary Symptoms: Reports: No Symptoms Reported Musculoskeletal Complaints: Reports: No Symptoms Reported Neurological: Reports: Weakness Skin: Reports: No Symptoms Reported Endocrine: Reports: No Symptoms Reported - Vitals Vitals: Last Vital Signs Temp 36.3 C 04/22/19 14:22 Pulse 83 04/22/19 14:22 Resp 22 H 04/22/19 14:22 BP 147/55 04/22/19 14:22 Pulse Ox 97 04/22/19 14:22 - Abnormal Lab Findings Abnormal Lab Findings: Abnormal Lab Results 04/22/19 04/22/19 Range/Units 06:04 06:04 WBC 17.8 H D (4.0-10.5) K/mm3 RBC 2.74 L (4.7-6.0) M/mm3 Hgb 8.2 L (13.5-18.0) gm/dL Hct 25.4 L (42.0-52.0) % RDW 14.7 H (11.5-14.0) % Neutrophils % (Manual) 84 H (42-75) % Lymphocytes % (Manual) 1 L (20-51) % Monocytes % (Manual) 11 H (0-9) % Neutrophils # (Manual) 15.0 H (1.3-6.0) K/mm3 Lymphocytes # (Manual) 0.2 L (1.5-3.5) k/mm3 Monocytes # (Manual) 2.0 H (0.0-1.0) k/mm3 Atypic/Reactive Lymphs 4 H (0-2) % BUN 39 H D (6-23) mg/dL Creatinine 2.06 H (0.4-1.4) mg/dL Est GFR (Non-Af Amer) 33 L (60-130) mL/min Random Glucose 112 H D (70-110) mg/dL ALT 10 L (19-67) U/L Albumin 2.4 L (3.4-5.0) gm/dl - EKG/Xray Findings EKG: NSR, premature vent. contract. EKG read: Interp. by me XRAY: chest Interpretation: Reviewed by me - Exam Constitutional: Present: Alert, Oriented x3, Cooperative, Well developed, Well nourished, No distress ENT Exam: Present: normal ENT inspection, pharynx normal, hard of hearing Neck: Present: non-tender, limited range of motion Breasts: Present: Exam deferred Respiratory: Present: chest non-tender, rhonchi, wheezing Cardiovascular/Chest: Present: normal peripheral pulses, regular rate, rhythm, no chest tenderness, no edema, no gallop, no JVD, no murmur, no rub Abdomen: Present: Normal bowel sounds, soft, nontender, nondistended, no rebound tenderness, no hepatospenomegaly, no masses /Rectal: Present: Exam deferred Extremity: Present: normal range of motion, non-tender, normal inspection, no pedal edema, no calf tenderness, normal capillary refill Skin Exam: Present: normal color, warm/dry, no cyanosis Neurologic: Present: band edger II-XII nml as tested, no motor/sensory deficits, alert, normal mood/affect, oriented x 3 Appearance: Present: appropriate appearance, appropriate insight, neat, impaired recent memory Eye contact: Present: cooperative, good eye contact, normal speech, avoids eye contact Thoughts: Present: normal thought pattern, no apparent hallucination Assessment/Plan Plan Narrative: Progress ambulatory distance as he tolerates Continue current antibiotic therapy Continue current respiratory therapy Anticipate discharge tomorrow morning - Problems/Diagnosis (1) Pneumonia Problem: Acute Qualifiers: Pneumonia type: due to unspecified organism Laterality: bilateral Lung location: lower lobe of lung Qualified Code(s): J18.9 - Pneumonia, unspecified organism (2) Intractable vomiting Problem: Acute Qualifiers: Nausea presence: without nausea (3) History of CHF (congestive heart failure) Problem: Chronic (4) CKD (chronic kidney disease) stage 3, GFR 30-59 ml/min Problem: Chronic
[2019-04-22] MEDS: POLYETHYLENE GLYCOL 3350 17 GM PACKET PO SCH (21:27)
[2019-04-23 06:36] LABS: Hematocrit 30.9 % (42.0-52.0); Hemoglobin 9.6 gm/dL (13.5-18.0); Mean Cell Volume 94.5 fl (78-100); Mean Corpuscular Hemoglobin 29.4 pg (27-31); Mean Corpuscular Hgb Conc 31.1 g/dl (32-36); Mean Platelet Volume 9.1 fl (8-11.3); Platelet Count 247 K/mm3 (150-450); Red Blood Count 3.27 M/mm3 (4.7-6.0); Red Cell Distribution Width 14.6 % (11.5-14.0); White Blood Count 12.9 K/mm3 (4.0-10.5)
[2019-04-23 06:44] LABS: Total Cells Counted 100
[2019-04-23 06:52] LABS: Albumin * 2.8 gm/dl (3.4-5.0); Anion Gap 10.3 mmol/L (6.8-13.8); BUN/Creatinine Ratio 18.3 (9.0-21.6); Bilirubin, Total 0.2 mg/dL (0.0-1.1); Ca. Corrected For Albumin 9.5 mg/dL (8.4-10.2); Calcium * 8.9 mg/dL (7.9-10.9); Potassium 4.3 mmol/L (3.4-4.6); Total Protein 7.4 gm/dL (6.2-8.2)
[2019-04-23] MEDS: oxyCODONE HCL 5 MG TABLET PO PRN (07:23)
[2019-04-23] MEDS: oxyCODONE HCL/ACETAMINOPHEN 1 TAB TABLET PO PRN (07:25)
[2019-04-23 07:31] LABS: Atypical (Reactive) Lymph 1 % (0-2); Lymphocyte 4 % (20-51); Monocyte 9 % (0-9); Neutrophil 86 % (42-75); Neutrophil # 11.1 K/mm3 (1.3-6.0)
[2019-04-23 07:33] LABS: Anisocytosis 1+; Hypochromia 1+; Platelet Estimate Normal (NORMAL)
--- NOTE | 2019-04-23 08:19 | DS ---
(1) Pneumonia Problem: Acute Qualifiers: Pneumonia type: due to unspecified organism Laterality: bilateral Lung location: lower lobe of lung Qualified Code(s): J18.9 - Pneumonia, unspecified organism (2) Intractable vomiting Problem: Acute Qualifiers: Nausea presence: without nausea (3) History of CHF (congestive heart failure) Problem: Chronic (4) CKD (chronic kidney disease) stage 3, GFR 30-59 ml/min Problem: Chronic Date of Discharge:: 04/23/19 Hospital Course: Jnoi Lundberg is an 88-year-old male patient admitted with weakness and shortness of breath. X-ray revealed bibasilar pneumonias. He has been treated with IV antibiotics and has responded well to therapy. He is now ambulatory and feeling close to his baseline. His dyspnea is resolved. He believes he can go home and care for himself now. Reviewing his laboratory work shows a chronic anemia that is anemia of chronic disease due to chronic renal insufficiency. Looking over the past 3 years his creatinine has been from 3.18-1.46. It was 1.48 on admission and then was 2.06 yesterday and 2.02 today. I believe that this is his new baseline area. His EGFR is 31 this morning. He has not had any documented fever since admission. He had been having chills at home. Cultures have been negative. He is complaining of constipation this morning and a fleets enema has been ordered prior to discharge. He is also has some nausea and dry heaves earlier this morning. He does not have much appetite this morning. Procedures Performed: none Care Plan Goals: Continue oral antibiotics at home using cefdinir 300 mg twice daily for 7 days Push fluids and decrease caffeine MiraLAX 17 g in 8 ounces of cold water once daily Follow-up with me in the office in 2 weeks Plan of Treatment: Repeat CBC, BMP, and chest x-ray in 2 weeks Results and Findings: Lab Pending Results 04/20/19 20:25: WBC 24.2 H, RBC 3.16 L, Hgb 9.5 L, Hct 29.1 L, MCV 92.1, MCH 30.1, MCHC 32.6, RDW 14.7 H, Plt Count 213, MPV 8.7, Neutrophils % (Manual) 88 H, Band Neuts % (Manual) 1, Lymphocytes % (Manual) 2 L, Monocytes % (Manual) 8, Immature Granulocytes 1, Neutrophils # (Manual) 21.3 H, Lymphocytes # (Manual) 0.5 L, Monocytes # (Manual) 1.9 H, Toxic Granulation Trace, Toxic Vacuolation Trace, Platelet Estimate Normal, Hypochromasia 1+, Anisocytosis Trace 04/20/19 20:25: Sodium 133, Plasma Sodium 134, Potassium 3.5, Chloride 98, Carbon Dioxide 24.1, Anion Gap 14.4 H, BUN 24 H, Creatinine 1.68 H, Est GFR (Non -Af Amer) 41 L, BUN/Creatinine Ratio 14.3, Random Glucose 186 H, Calcium 8.4, Calcium Adj for Albumin 9.0, Total Bilirubin 0.5, AST 14, ALT 9 L, Alkaline Phosphatase 104, Troponin I Less than 0.017, B-Natriuretic Peptide 645, Total Protein 7.7, Albumin 2.9 L 04/20/19 20:35: pCO2 30.8 L, pO2 55.8 L, HCO3 22.1, Total CO2 23.0, Base Excess -1.0, ABG pH 7.47 H, ABG O2 Sat (Measured) 91.3 L 04/20/19 20:40: Group A Strep Rapid Negative 04/21/19 13:53: Magnesium 2.0 04/21/19 20:08: Urine Color Dark yellow, Urine Appearance Slightly cloudy, Urine pH 6.0, Ur Specific [place] 1.020, Urine Protein Negative, Urine Glucose (UA) Negative, Urine Ketones Negative, Urine Blood Negative, Urine Nitrate Negative, Urine Bilirubin Negative, Urine Urobilinogen Normal, Ur Leukocyte Esterase Negative, Urine RBC None seen, Urine WBC 0-5, Ur Epithelial Cells 0-5, Urine Bacteria None seen, Urine Culture Comments No culture indicated 04/22/19 06:04: WBC 17.8 H D, RBC 2.74 L, Hgb 8.2 L, Hct 25.4 L, MCV 92.7, MCH 29.9, MCHC 32.3, RDW 14.7 H, Plt Count 206, MPV 9.4, Neutrophils % (Manual) 84 H, Lymphocytes % (Manual) 1 L, Monocytes % (Manual) 11 H, Neutrophils # (Manual) 15.0 H, Lymphocytes # (Manual) 0.2 L, Monocytes # (Manual) 2.0 H, Atypic/Reactive Lymphs 4 H, Platelet Estimate Normal, Hypochromasia 1+, Anisocytosis 2+ 04/22/19 06:04: Sodium 134, Plasma Sodium 134, Potassium 4.2, Chloride 99, Carbon Dioxide 28.2, Anion Gap 11.0, BUN 39 H D, Creatinine 2.06 H, Est GFR (Non-Af Amer) 33 L, BUN/Creatinine Ratio 18.9, Random Glucose 112 H D, Calcium 8.1, Calcium Adj for Albumin 9.1, Total Bilirubin 0.2, AST 13, ALT 10 L, Alkaline Phosphatase 75, Total Protein 6.6, Albumin 2.4 L 04/23/19 06:22: WBC 12.9 H D, RBC 3.27 L, Hgb 9.6 L, Hct 30.9 L, MCV 94.5, MCH 29.4, MCHC 31.1 L, RDW 14.6 H, Plt Count 247, MPV 9.1, Neutrophils % (Manual) 86 H, Lymphocytes % (Manual) 4 L, Monocytes % (Manual) 9, Neutrophils # (Manual) 11.1 H, Lymphocytes # (Manual) 0.5 L, Monocytes # (Manual) 1.2 H, Atypic/Reactive Lymphs 1, Platelet Estimate Normal, Hypochromasia 1+, Anisocytosis 1+ 04/23/19 06:22: Sodium 134, Plasma Sodium 134, Potassium 4.3, Chloride 99, Carbon Dioxide 29.0, Anion Gap 10.3, BUN 37 H, Creatinine 2.02 H, Est GFR (Non- Af Amer) 33 L, BUN/Creatinine Ratio 18.3, Random Glucose 106, Calcium 8.9, Calcium Adj for Albumin 9.5, Total Bilirubin 0.2, AST 18, ALT 17 L, Alkaline Phosphatase 92, Total Protein 7.4, Albumin 2.8 L Discharge Location: Home Disposition: Home self-care Condition: Fair Face to Face Encounter completed per CMS Guidelines: No Discharge Activity: Activity as tolerated Discharge Diet: General/regular food Referrals: López Jaramillo DO [Primary Care Provider] - Consultation Done:: None see above Prescriptions (Any new or edited meds): Polyethylene Glycol 3350 [Miralax] 17 gm PO HS #510 gm Transmission Status: Pending to [facility] [place] Cefdinir [Omnicef] 300 mg PO Q12H #14 cap Transmission Status: Pending to [place], [place] Complete Home Medications List: Complete Home Medication List: Aspirin [Aspirin Chewable] 81 mg PO DAILY 08/14/17 Budesonide/Formoterol Fumarate [Symbicort 160-4.5 Mcg Inhaler] 2 puff INHALATION BID #1 03/18/19 Tiotropium [place] [Spiriva Respimat 2.5 mcg/inhalation] 2 puff INHALATION DAILY #1 03/18/19 Triamterene/Hydrochlorothiazid [Maxzide 75 MG/50 MG] 1 tab PO DAILY #30 03/18/19 famotidine 20 mg tablet 20 mg PO BID 42 Days #84 tab 03/26/19 oxycodone-acetaminophen 10 mg-325 mg tablet 1 tab PO QID PRN #120 tab 04/02/19 Diphenhydramine HCl [Wal-Dryl] 25 mg PO HS PRN 04/20/19 Polyethylene Glycol 3350 [Miralax] 17 gm PO HS 04/21/19 Cefdinir [Omnicef] 300 mg PO Q12H #14 cap 04/23/19 Polyethylene Glycol 3350 [Miralax] 17 gm PO HS #510 gm 04/23/19 Amb Orders for Discharge: Basic Metabolic Panel Time Frame: 2 Weeks, Facility: [facility], Location: Laboratory CBC Time Frame: 2 Weeks, Facility: [facility], Location: Laboratory Chest PA & Lateral * Time Frame: 2 Weeks, Facility: [facility], Location: Radiology
[2019-04-23] MEDS: FAMOTIDINE 20 MG TABLET PO SCH (08:50)
[2019-04-23] MEDS: TIOTROPIUM BROMIDE 5 CAP INHALER IH SCH (08:50)
[2019-04-23] MEDS: ASPIRIN 81 MG TAB.CHEW PO SCH (08:50)
[2019-04-23] MEDS: TRIAMTERENE/HYDROCHLOROTHIAZID 1 TAB TABLET PO SCH (08:50)
[2019-04-23] MEDS: FLUTICASONE PROPION/SALMETEROL 14 PUFF DISK.W.DEV IH SCH (08:50)
[2019-04-23 10:44] VITALS: BP 127/55
== END 2019-04-23 10:35 | disposition home or self-care (01) | DRG 194 ==
LOC: ER 19:38 → MS 21:36
PROVIDERS: ADMIT Internal Medicine; ATTEND Family Medicine
DX: J44.1 Chronic obstructive pulmonary disease with (acute) exacerbation; K59.00 Constipation, unspecified; R11.11 Vomiting without nausea; D63.1 Anemia in chronic kidney disease; Z87.891 Personal history of nicotine dependence; I49.9 Cardiac arrhythmia, unspecified; I50.9 Heart failure, unspecified; N17.9 Acute kidney failure, unspecified; J18.1 Lobar pneumonia, unspecified organism; N18.3 Chronic kidney disease, stage 3 (moderate); I13.0 Hypertensive heart and chronic kidney disease with heart failure and stage 1 through stage 4 chronic kidney disease, or unspecified chronic kidney disease
CPT/HCPCS: 36415; 36600; 71020; 71046; 80053; 81001; 82803; 83519; 83735; 83880; 84484; 85007; 85025; 87081; 87430; 93005; 94640; 94664; 96361; 96365; 96375; 99285; J2405

== ENCOUNTER 2020-06-02 10:00 | Observation (INO) ==
[2020-06-02] MEDS ORDERED: NORMAL SALINE 500 ML IV ONE (10:19)
--- NOTE | 2020-06-02 10:22 | ERNOTE ---
Medical Problem HPI - Narrative Date of Service: 06/02/20 - General Chief Complaint: General Assessment Time Seen by Provider: 06/02/20 10:03 Source: patient, family Exam Limitations: hard of hearing - Immun/Allergies/Home Medications Immunizations: IMMUNIZATION HX Immunizations Up to Date Yes History of Influenza Vaccine Yes Hx Pneumococcal Vaccination Yes Allergies/Adverse Reactions: Allergies No Known Allergies Allergy (Verified 04/29/20 11:39) Home Medications: HOME MEDICATIONS Diphenhydramine HCl [Wal-Dryl Allergy] 25 mg PO HS PRN 04/20/19 [Last Taken Unknown] albuterol sulfate 90 mcg/actuation aerosol inhaler 2 puff IH Q6H PRN #18 g 09/08/19 [Last Taken Unknown] pantoprazole 40 mg tablet,delayed release 40 mg PO BID #60 tab 01/19/20 [Last Taken Unknown] revefenacin 175 mcg/3 mL solution for nebulization 175 mcg IH DAILY 03/07/20 [Last Taken Unknown] levothyroxine 75 mcg tablet 75 mcg PO DAILY #30 tab 04/06/20 [Last Taken Unknown] Durable Medical Equipment See Rx Instructions .MEDSUPPLY #1 ea 04/18/20 [Last Taken Unknown] oxycodone 5 mg tablet 10 mg PO QID #120 tab 06/01/20 [Last Taken Unknown] Acetaminophen [Pain Relief] 650 mg PO QID PRN 06/02/20 [Last Taken Unknown] Aspirin [Aspirin Chewable] 81 mg PO DAILY 06/02/20 [Last Taken Unknown] Budesonide [Pulmicort Respules] 2 ml IH BID 06/02/20 [Last Taken Unknown] Clopidogrel Bisulfate [Plavix] 75 mg PO BID 06/02/20 [Last Taken Unknown] Ferrous Sulfate [Iron] 325 mg PO Q48H 06/02/20 [Last Taken Unknown] Furosemide 80 mg PO DAILY 06/02/20 [Last Taken Unknown] Tamsulosin HCl [Flomax] 0.8 mg PO DAILY 06/02/20 [Last Taken Unknown] Vancomycin HCl [Vancomycin] 125 mg PO QID 06/02/20 [Last Taken Unknown] - History of Present History Narrative: Patient is an 89-year-old male with a history of emphysema, chronic hypoxic respiratory failure on 3 L nasal cannula chronically, CHF, CKD, recent TAVR presenting with his granddaughter, DPOA via EMS with concerns for increasing weakness. Patient was recently discharged yesterday from the [facility] with concerns for left-sided pleural effusion and weakness. Was treated for pneumonia and then developed C. difficile colitis. Currently on vancomycin. She was with him yesterday evening. He had a almost fall today while she was with him. She is concerned that he is too weak and too confused to be at home. He is not using his walker, left his phone throughout the house. Therefore, she brings him to the emergency department for further evaluation and possible placement. Review of Systems - Review of Systems Constitutional: Present: malaise EYE: Present: no symptoms reported ENT: Present: no symptoms reported Respiratory: Present: shortness of breath Cardiology: Absent: chest pain Gastrointestinal/Abdominal: Present: diarrhea. Absent: nausea, vomiting Genitourinary: Present: no symptoms reported Musculoskeletal: Present: no symptoms reported Skin: Present: no symptoms reported Neurological: Present: weakness Endocrine: Present: no symptoms reported Hematologic/Lymphatic: Present: no symptoms reported Psych: Present: no symptoms reported All Other Systems: All systems neg except as marked Medical History (Last Reviewed 06/02/20 @ 16:46 by Keila Reese RN) Observation for suspected concussion (Acute) Multiple bruises (Acute) Severe chronic obstructive pulmonary disease (Chronic) Constipation by delayed colonic transit (Resolved) Acute urinary retention (Acute) Fall at home (Acute) Rhinorrhea (Acute) Chronic low back pain (Chronic) injured his back in 2007 failed back surgery 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 Fernandez oxygen level is 90% at rest sitting. He desaturates to 84% which is standing up. He desaturates to 80% when walking. He becomes weak and lightheaded and has to sit down to recover. He will need an oxygen concentrator at home and portable oxygen to travel outside the home for doctor's appointments etc. He will benefit from this significantly and may help his heart rate and rhythm improved as well. When he has been hospitalized and was on oxygen he was much more comfortable. I will send this request to [facility]. Chronic kidney disease, stage IV (severe) (Chronic) Hypotension (Acute) Systolics in supine, sitting, and standing are all in the 92-94 range. Lightheadedness (Acute) Appears NOT to be orthostatic. All 3 way blood pressures are in the low 90s systolic but he gets lightheaded when he stands up. The pulse does not change appreciably. Weakness (Chronic) Acutely worse however. Persistent pneumonia (Chronic) GERD with esophagitis (Chronic) Prostatism (Chronic) He is getting up 3-4 times a night. He has urgency with urination but no dysuria. He does not void normal volumes as it seems to be smaller volume than usual. I expect he is not completely emptying his bladder. Emphysema with chronic bronchitis (Chronic) Chronic pain syndrome (Chronic) Hyperlipidemia (Chronic) Hypertension (Chronic) Low back pain (Chronic) There is occasional sciatica down the right leg. 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) AF (paroxysmal atrial fibrillation) Hummel palsy CHF (congestive heart failure) COPD (chronic obstructive pulmonary disease) Colonoscopy refused Constipation High cholesterol Hx-TIA (transient ischemic attack) Hypertension Injury of right common femoral artery Low back pain Parapneumonic effusion Pneumonia Severe aortic stenosis Shingles Surgical History: Surgical History (Last Updated 06/02/20 @ 16:46 by Keila Reese RN) H/O heart artery stent Heart valve replaced History of appendectomy S/P TAVR (transcatheter aortic valve replacement) H/O hemorrhoidectomy History of back surgery History of esophagogastroduodenoscopy (EGD) Onset Date: 03/17/19 03/17/19 [place]-clotest negative, moderate benign reactive gastropathy/chemical gastritis. Hiatal hernia. Hx of hernia repair Family History: Family History (Last Reviewed 04/29/20 @ 13:29 by Jose F Swenson MD) Father Myocardial infarction Social History: (Last Reviewed 04/29/20 @ 13:29 by Jose F Swenson MD) Social History: Marital status: household members: none current occupational status: retired Highest level of school completed/degree received: 8th grade Service: Yes branch: [employer] Tobacco: Smoking Status: Former smoker Alcohol: alcohol intake: never Substance Use: substance use type: does not use Dietary Habits: caffeine: Yes Type: coffee Physical Exam - Physical Exam General Appearance: Present: other - Frail-appearing 89-year-old male laying in bed on nasal cannula. No apparent respiratory distress Head Exam: Present: no evidence of injury Eye Exam: PERRL: bilateral Neck: Present: supple Respiratory: Present: no respiratory distress, normal breath sounds, no accessory muscle use, lungs clear Cardiovascular/Chest: Present: normal peripheral pulses, tachycardia, irreg ularly irregular Gastrointestinal/Abdominal: Present: nontender, nondistended, soft Back Exam: Present: normal inspection Extremity Exam: Present: no edema Neurological Exam: Present: alert, oriented, no motor/sensory deficits Skin Exam: Present: normal color, warm/dry, other - Multiple bruises over the bilateral upper extremities Progress - Results and Orders Patient's Lab Results:: I have reviewed the patient's lab results. Results and Orders: Laboratory Tests 06/02/20 06/02/20 10:40 10:40 WBC 17.4 H Hgb 9.2 L Hct 29.4 L Plt Count 289 Plasma Sodium 134 Potassium 3.7 D Chloride 99 Carbon Dioxide 31.3 Anion Gap 7.4 BUN 26 H Creatinine 1.87 H D Est GFR (Non-Af Amer) 36 L D Calcium 8.2 Total Bilirubin 0.4 AST 16 ALT 12 L Alkaline Phosphatase 84 Troponin I 0.018 B-Natriuretic Peptide 1540 H Total Protein 6.3 Albumin 2.0 L Laboratory Tests 06/02/20 06/02/20 12:27 14:23 Urine Color Dark yellow Urine Appearance Clear Urine pH 6.5 Ur Specific [place] 1.010 Urine Protein 15 H Urine Glucose (UA) Negative Urine Ketones Negative Urine Blood 5 H Urine Nitrate Negative Urine Bilirubin 1 H Urine Urobilinogen Normal Ur Leukocyte Esterase Negative Urine RBC Trace Urine WBC None seen Ur Epithelial Cells Trace Urine Bacteria Trace Urine Culture Comments No culture indicated SARS-CoV-2 (PCR) Not detected - Vital Signs Patient's Vital Signs:: I have reviewed the patient's vital signs. Vital Signs: Vital Signs 06/02/20 10:00 Temperature 36.9 C Respiratory Rate 19 Blood Pressure 108/46 O2 Sat by Pulse Oximetry 97 - EKG EKG #1 EKG: atrial fibrillation EKG read: Interp. by me EKG Comments: Atrial fibrillation, rate of 85 bpm, left axis deviation with left bundle branch block. Prior EKG from 04/29/2020 showed a normal sinus rhythm. - X-Ray X-Ray #1 X-Ray: chest Interpretation: Reviewed by me X-ray Comments: Findings: Severe diffuse chronic pleural and parenchymal scarring and hyperinflation lungs bilaterally. Persistent but improved bilateral right slightly larger than left pleural effusions. Cardiac silhouette and pulmonary vasculature are normal. Stable aortic valve stent. The osseous structures demonstrate degenerative changes of the spine and shoulders. IMPRESSION: 1. PERSISTENT BUT DECREASING SIZE OF BILATERAL SMALL PLEURAL EFFUSIONS. 2. OTHERWISE NO ACUTE CARDIOPULMONARY ABNORMALITY IDENTIFIED. - Progress/Reassessment Chief Complaint: General Assessment Plan - Plan Plan: Patient is an 89-year-old male with multiple chronic comorbidities presenting with recurrent weakness after recent hospitalization. Noted to be in atrial fibrillation, but not hypoxic. Family is bringing him to the emergency department today for evaluation of placement. Per prior discussion from family with charge nurse, will have transplant case manager and hospice evaluate him in the emergency department. EKG demonstrates atrial fibrillation, no ischemic changes. Labs show an increasing leukocytosis, chronic CKD, and no significant electrolyte abnormalities. Troponin within normal limits, BNP is elevated. For his tachycardia, given a 500 cc normal saline bolus. Had discussion with family, hospice and transplant case manager. Discussed that these chronic comorbidities are not curable, and that with recent trends of hospitalization and then immediate return to the hospital, I am concerned that his condition is worsening. Discussed hospice, which both the patient and his DPOA are amenable to. catering service manager and hospice nurse have been working since patient arrived in the emergency department to help assist with placement. They have looked at multiple facilities throughout the day, patient is not excepted. Chest x-ray shows bilateral parenchymal scarring, possible superimposed infection. Could represent worsening pneumonia. Patient has been in the emergency department since 10 AM, unable to find placement. Patient not safe for discharge home. Will need to admit for worsening pneumonia while trying to find placement for him. Patient given vancomycin and cefepime given recent admission. His primary care provider is not available for admission, will admit to on-call provider, Dr. Jordan. COVID-19 negative. Departure Clinical Impression: Chronic respiratory failure with hypoxia, Generalized weakness CKD (chronic kidney disease) Qualifiers: Chronic kidney disease stage: unspecified stage Qualified Code(s): N18.9 - Chronic kidney disease, unspecified - Departure Disposition: Still a patient Condition: Serious
[2020-06-02 10:57] LABS: Hematocrit 29.4 % (42.0-52.0); Hemoglobin 9.2 gm/dL (13.5-18.0); Mean Cell Volume 95.1 fl (78-100); Mean Corpuscular Hemoglobin 29.8 pg (27-31); Mean Corpuscular Hgb Conc 31.3 g/dl (32-36); Mean Platelet Volume 8.8 fl (8-11.3); Platelet Count 289 K/mm3 (150-450); Red Blood Count 3.09 M/mm3 (4.7-6.0); Red Cell Distribution Width 14.5 % (11.5-14.0); White Blood Count 17.4 K/mm3 (4.0-10.5)
[2020-06-02 10:59] LABS: Total Cells Counted 100
[2020-06-02 11:07] LABS: Lymphocyte 4 % (20-51); Monocyte 15 % (0-9); Neutrophil 81 % (42-75); Neutrophil # 14.1 K/mm3 (1.3-6.0)
[2020-06-02 11:08] LABS: Platelet Estimate Normal (NORMAL); RBC Morphology Normal (NORMAL)
[2020-06-02 11:11] LABS: Anion Gap 7.4 mmol/L (6.8-13.8); BUN/Creatinine Ratio 13.9 (9.0-21.6); Bilirubin, Total 0.4 mg/dL (0.0-1.1); Ca. Corrected For Albumin 9.5 mg/dL (8.4-10.2); Calcium * 8.2 mg/dL (7.9-10.9); Carbon Dioxide 31.3 mmol/L (24-32.6); Potassium 3.7 mmol/L (3.4-4.6); Total Protein 6.3 gm/dL (6.2-8.2)
[2020-06-02 11:12] LABS: Troponin I 0.018 ng/mL (0.00-0.10)
[2020-06-02 14:52] LABS: Urine Bilirubin 1 mg/dl (NEGATIVE); Urine Ketone Negative (NEGATIVE); Urine Nitrite Negative (NEGATIVE); Urine Protein 15 mg/dL (NEGATIVE); Urine Urobilinogen Normal (NORMAL); Urine pH 6.5 pH (5.0-7.0)
[2020-06-02 15:07] LABS: Urine Appearance Clear (CLEAR); Urine Bacteria TRACE; Urine Blood 5 /ul (NEGATIVE); Urine Color Dark Yellow; Urine RBC TRACE /hpf (0-5); Urine WBC None Seen /hpf (0-5)
[2020-06-02] MEDS ORDERED: CEFEPIME HCL 1 GM/100 ML BAG IV ONE (15:25)
[2020-06-02] MEDS ORDERED: VANCOMYCIN HCL 1 GM in DEXTROSE 5 % IN WATER 250 ML IV ONE ×2 (15:25)
[2020-06-02] MEDS ORDERED: ACETAMINOPHEN 325 MG TABLET PO PRN (17:31)
[2020-06-02] MEDS ORDERED: ALBUTEROL SULFATE 2.5 MG/0.5 ML VIAL.NEB IH PRN (17:31)
[2020-06-02] MEDS ORDERED: diphenhydrAMINE HCL 25 MG CAPSULE PO PRN (17:31)
--- NOTE | 2020-06-02 17:31 | HP ---
Chief Complaint - Chief Complaint Date of Service: 06/02/20 Time of Service: 16:53 Chief Complaint: Weakness day History of Present Illness: 89-year-old male with a past medical history of COPD, oxygen dependent with 2 L at rest and 4 L when ambulating, CKD 3, CHF, atrial fibrillation, CKD stage IV, chronic pain syndrome, constipation, GERD, hypertension, hyperlipidemia, TIA, parapneumonic effusion, severe aortic stenosis status post TAVR presents from home with weakness and a near fall. He was discharged from the [facility] yesterday after being hospitalized with pneumonia and C. difficile colitis. Prior to discharge the case sealer had recommended placement in a penitentiary but the patient refused. In the ER he was found to be afebrile, vitals were stable. He was placed on 3 L of oxygen via nasal cannula. He has a leukocytosis of 17.4, chest x-ray is positive for persistent but decreased bilateral small pleural effusions, otherwise no acute cardiopulmonary abnormality identified. He was given a dose of cefepime and vancomycin in the ER for presumed hospital-acquired pneumonia. He is being admitted for further observation and management. Medical History (Last Reviewed 06/02/20 @ 16:46 by Keila Reese RN) Observation for suspected concussion (Acute) Multiple bruises (Acute) Severe chronic obstructive pulmonary disease (Chronic) Constipation by delayed colonic transit (Resolved) Acute urinary retention (Acute) Fall at home (Acute) Rhinorrhea (Acute) Chronic low back pain (Chronic) injured his back in 2007 failed back surgery 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 Fernandez oxygen level is 90% at rest sitting. He desaturates to 84% which is standing up. He desaturates to 80% when walking. He becomes weak and lightheaded and has to sit down to recover. He will need an oxygen concentrator at home and portable oxygen to travel outside the home for doctor's appointments etc. He will benefit from this significantly and may help his heart rate and rhythm improved as well. When he has been hospitalized and was on oxygen he was much more comfortable. I will send this request to [facility]. Chronic kidney disease, stage IV (severe) (Chronic) Hypotension (Acute) Systolics in supine, sitting, and standing are all in the 92-94 range. Lightheadedness (Acute) Appears NOT to be orthostatic. All 3 way blood pressures are in the low 90s systolic but he gets lightheaded when he stands up. The pulse does not change appreciably. Weakness (Chronic) Acutely worse however. Persistent pneumonia (Chronic) GERD with esophagitis (Chronic) Prostatism (Chronic) He is getting up 3-4 times a night. He has urgency with urination but no dysuria. He does not void normal volumes as it seems to be smaller volume than usual. I expect he is not completely emptying his bladder. Emphysema with chronic bronchitis (Chronic) Chronic pain syndrome (Chronic) Hyperlipidemia (Chronic) Hypertension (Chronic) Low back pain (Chronic) There is occasional sciatica down the right leg. 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) AF (paroxysmal atrial fibrillation) Hummel palsy CHF (congestive heart failure) COPD (chronic obstructive pulmonary disease) Colonoscopy refused Constipation High cholesterol Hx-TIA (transient ischemic attack) Hypertension Injury of right common femoral artery Low back pain Parapneumonic effusion Pneumonia Severe aortic stenosis Shingles Surgical History: Surgical History (Last Updated 06/02/20 @ 16:46 by Keila Reese RN) H/O heart artery stent Heart valve replaced History of appendectomy S/P TAVR (transcatheter aortic valve replacement) H/O hemorrhoidectomy History of back surgery History of esophagogastroduodenoscopy (EGD) Onset Date: 03/17/19 03/17/19 Bagan-clotest negative, moderate benign reactive gastropathy/chemical gastritis. Hiatal hernia. Hx of hernia repair Family History: Family History (Last Reviewed 04/29/20 @ 13:29 by Jose F Swenson MD) Father Myocardial infarction Social History: (Last Reviewed 04/29/20 @ 13:29 by Jose F Swenson MD) Social History: Marital status: household members: none current occupational status: retired Highest level of school completed/degree received: 8th grade Service: Yes branch: [employer] Tobacco: Smoking Status: Former smoker Alcohol: alcohol intake: never Substance Use: substance use type: does not use Dietary Habits: caffeine: Yes Type: coffee Review Of Systems (GEN) - Review of Systems Generalized/Overall Review: Absent: Fever Respiratory: Present: Cough. Absent: Shortness of Breath Cardiac: Absent: Chest Pain Abdominal: Present: Diarrhea. Absent: Abdominal Pain Misc: All systems neg except as marked Immunizations: IMMUNIZATION HX Immunizations Up to Date Yes History of Influenza Vaccine Yes Hx Pneumococcal Vaccination Yes Allergies/Adverse Reactions: Allergies Allergy/AdvReac Type Severity Reaction Status Date / Time No Known Allergies Allergy Verified 04/29/20 11:39 Home Medications: HOME MEDICATIONS Diphenhydramine HCl [[employer] Allergy] 25 mg PO HS PRN 04/20/19 [Last Taken Unknown] albuterol sulfate 90 mcg/actuation aerosol inhaler 2 puff IH Q6H PRN #18 g 09/08/19 [Last Taken Unknown] pantoprazole 40 mg tablet,delayed release 40 mg PO BID #60 tab 01/19/20 [Last Taken Unknown] revefenacin 175 mcg/3 mL solution for nebulization 175 mcg IH DAILY 03/07/20 [Last Taken Unknown] levothyroxine 75 mcg tablet 75 mcg PO DAILY #30 tab 04/06/20 [Last Taken Unknown] Durable Medical Equipment See Rx Instructions .MEDSUPPLY #1 ea 04/18/20 [Last Taken Unknown] oxycodone 5 mg tablet 10 mg PO QID #120 tab 06/01/20 [Last Taken Unknown] Acetaminophen [Pain Relief] 650 mg PO QID PRN 06/02/20 [Last Taken Unknown] Aspirin [Aspirin Chewable] 81 mg PO DAILY 06/02/20 [Last Taken Unknown] Budesonide [Pulmicort Respules] 2 ml IH BID 06/02/20 [Last Taken Unknown] Clopidogrel Bisulfate [Plavix] 75 mg PO BID 06/02/20 [Last Taken Unknown] Ferrous Sulfate [Iron] 325 mg PO Q48H 06/02/20 [Last Taken Unknown] Furosemide 80 mg PO DAILY 06/02/20 [Last Taken Unknown] Tamsulosin HCl [Flomax] 0.8 mg PO DAILY 06/02/20 [Last Taken Unknown] Vancomycin HCl [Vancomycin] 125 mg PO QID 06/02/20 [Last Taken Unknown] Exam - Exam Vital Signs: Vital Signs - Last Taken Temp 36.9 C 06/02/20 14:37 Pulse 89 06/02/20 14:37 Resp 15 06/02/20 14:37 BP 117/43 06/02/20 14:37 Pulse Ox 97 06/02/20 14:37 Constitutional: Present: Alert, Cooperative, Well developed, Well nourished, No distress, Elderly ENT Exam: Present: hard of hearing, moist mucous membranes Eye Exam: bilateral eye: normal inspection, EOMI Neck: Present: non-tender, supple. Absent: lymphadenopathy (R), lymphadenopathy (L) Back Exam: Present: no CVA tenderness, no vertebral tenderness Respiratory: Present: no respiratory distress, no accessory muscle use, crackles - Right lung base, wheezing - Mild bilateral upper lung. Absent: rhonchi Cardiovascular/Chest: Present: normal peripheral pulses, regular rate, rhythm, no murmur Peripheral Pulses: dorsalis-pedis (R): 1+, dorsalis-pedis (L): 1+ Abdomen: Present: Normal bowel sounds, soft, nontender Extremity: Present: no pedal edema Skin Exam: Present: normal color, warm/dry Neurologic: Present: alert, normal mood/affect Appearance: Present: appropriate appearance Eye contact: Present: cooperative, good eye contact Thoughts: Present: normal mood /affect Diagnostic Studies: Abnormal Lab Results 06/02/20 06/02/20 06/02/20 Range/Units 10:40 10:40 14:23 WBC 17.4 H (4.0-10.5) K/mm3 RBC 3.09 L (4.7-6.0) M/mm3 Hgb 9.2 L (13.5-18.0) gm/dL Hct 29.4 L (42.0-52.0) % MCHC 31.3 L (32-36) g/dl RDW 14.5 H (11.5-14.0) % Neutrophils % (Manual) 81 H (42-75) % Lymphocytes % (Manual) 4 L (20-51) % Monocytes % (Manual) 15 H (0-9) % Neutrophils # (Manual) 14.1 H (1.3-6.0) K/mm3 Lymphocytes # (Manual) 0.7 L (1.5-3.5) k/mm3 Monocytes # (Manual) 2.6 H (0.0-1.0) k/mm3 BUN 26 H (6-23) mg/dL Creatinine 1.87 H D (0.4-1.4) mg/dL Est GFR (Non-Af Amer) 36 L D (60-130) mL/min Random Glucose 112 H (70-110) mg/dL ALT 12 L (19-67) U/L B-Natriuretic Peptide 1540 H (5-650) pg/mL Albumin 2.0 L (3.4-5.0) gm/dl Urine Protein 15 H (NEGATIVE) mg/dL Urine Blood 5 H (NEGATIVE) /ul Urine Bilirubin 1 H (NEGATIVE) mg/dl Laboratory Results WBC 17.4 K/mm3 (4.0-10.5) H 06/02/20 10:40 RBC 3.09 M/mm3 (4.7-6.0) L 06/02/20 10:40 Hgb 9.2 gm/dL (13.5-18.0) L 06/02/20 10:40 Hct 29.4 % (42.0-52.0) L 06/02/20 10:40 MCV 95.1 fl (78-100) 06/02/20 10:40 MCH 29.8 pg (27-31) 06/02/20 10:40 MCHC 31.3 g/dl (32-36) L 06/02/20 10:40 RDW 14.5 % (11.5-14.0) H 06/02/20 10:40 Plt Count 289 K/mm3 (150-450) 06/02/20 10:40 MPV 8.8 fl (8-11.3) 06/02/20 10:40 Neutrophils % (Manual) 81 % (42-75) H 06/02/20 10:40 Lymphocytes % (Manual) 4 % (20-51) L 06/02/20 10:40 Monocytes % (Manual) 15 % (0-9) H 06/02/20 10:40 Neutrophils # (Manual) 14.1 K/mm3 (1.3-6.0) H 06/02/20 10:40 Lymphocytes # (Manual) 0.7 k/mm3 (1.5-3.5) L 06/02/20 10:40 Monocytes # (Manual) 2.6 k/mm3 (0.0-1.0) H 06/02/20 10:40 Platelet Estimate Normal (NORMAL) 06/02/20 10:40 RBC Morphology Normal (NORMAL) 06/02/20 10:40 Sodium 134 mmol/L (132-142) 06/02/20 10:40 Plasma Sodium 134 mmol/L (130-142) 06/02/20 10:40 Potassium 3.7 mmol/L (3.4-4.6) D 06/02/20 10:40 Chloride 99 mmol/L (97-106) 06/02/20 10:40 Carbon Dioxide 31.3 mmol/L (24-32.6) 06/02/20 10:40 Anion Gap 7.4 mmol/L (6.8-13.8) 06/02/20 10:40 BUN 26 mg/dL (6-23) H 06/02/20 10:40 Creatinine 1.87 mg/dL (0.4-1.4) H D 06/02/20 10:40 Est GFR (Non-Af Amer) 36 mL/min (60-130) L D 06/02/20 10:40 BUN/Creatinine Ratio 13.9 (9.0-21.6) 06/02/20 10:40 Random Glucose 112 mg/dL (70-110) H 06/02/20 10:40 Calcium 8.2 mg/dL (7.9-10.9) 06/02/20 10:40 Calcium Adj for Albumin 9.5 mg/dL (8.4-10.2) 06/02/20 10:40 Total Bilirubin 0.4 mg/dL (0.0-1.1) 06/02/20 10:40 AST 16 U/L (0-48) 06/02/20 10:40 ALT 12 U/L (19-67) L 06/02/20 10:40 Alkaline Phosphatase 84 U/L (50-170) 06/02/20 10:40 Troponin I 0.018 ng/mL (0.00-0.10) 06/02/20 10:40 B-Natriuretic Peptide 1540 pg/mL (5-650) H 06/02/20 10:40 Total Protein 6.3 gm/dL (6.2-8.2) 06/02/20 10:40 Albumin 2.0 gm/dl (3.4-5.0) L 06/02/20 10:40 Urine Color Dark yellow 06/02/20 14:23 Urine Appearance Clear (CLEAR) 06/02/20 14:23 Urine pH 6.5 pH (5.0-7.0) 06/02/20 14:23 Ur Specific [place] 1.010 SP.GR. (1.005-1.030) 06/02/20 14:23 Urine Protein 15 mg/dL (NEGATIVE) H 06/02/20 14:23 Urine Glucose (UA) Negative mg/dL (NEGATIVE) 06/02/20 14:23 Urine Ketones Negative mg/dL (NEGATIVE) 06/02/20 14:23 Urine Blood 5 /ul (NEGATIVE) H 06/02/20 14:23 Urine Nitrate Negative (NEGATIVE) 06/02/20 14:23 Urine Bilirubin 1 mg/dl (NEGATIVE) H 06/02/20 14:23 Urine Urobilinogen Normal EU/dl (NORMAL) 06/02/20 14:23 Ur Leukocyte Esterase Negative /ul (NEGATIVE) 06/02/20 14:23 Urine RBC Trace /hpf (0-5) 06/02/20 14:23 Urine WBC None seen /hpf (0-5) 06/02/20 14:23 Ur Epithelial Cells Trace /hpf (0-5) 06/02/20 14:23 Urine Bacteria Trace (NONE) 06/02/20 14:23 Urine Culture Comments No culture indicated 06/02/20 14: SARS-CoV-2 (PCR) Not detected (NotDetected) 06/02/20 12:27 Assessment/Plan - Narrative Narrative: 89-year-old male with a past medical history of COPD, oxygen dependent with 2 L at rest and 4 L when ambulating, CKD 3, CHF, atrial fibrillation, CKD stage IV, chronic pain syndrome, constipation, GERD, hypertension, hyperlipidemia, TIA, parapneumonic effusion, severe aortic stenosis status post TAVR presents from home with weakness and a near fall. He was discharged from the [facility] yesterday after being hospitalized with pneumonia and C. difficile colitis. Prior to discharge the case sealer had recommended placement in a penitentiary but the patient refused. In the ER he was found to be afebrile, vitals were stable. He was placed on 3 L of oxygen via nasal cannula. He has a leukocytosis of 17.4, chest x-ray is positive for persistent but decreased bilateral small pleural effusions, otherwise no acute cardiopulmonary abnormality identified. He was given a dose of cefepime and vancomycin in the ER for presumed hospital-acquired pneumonia. He is being admitted for further observation and management. Plan #1 Taper down to baseline oxygen. Goal oxygen saturation is 88 to 92% due to his history of COPD. #2 resume home medications for comorbidities #3 discharge planning to a custodial facility. #4 discontinue cefepime. - Assessment/Plan (1) Weakness Problem: Chronic (2) Leukocytosis Problem: Acute (3) C. difficile colitis Problem: Acute (4) Pneumonia Problem: Acute (5) CKD (chronic kidney disease) Problem: Chronic Qualifiers: Chronic kidney disease stage: unspecified stage Qualified Code(s): N18.9 - Chronic kidney disease, unspecified (6) History of CHF (congestive heart failure) Problem: Chronic (7) Atrial fibrillation Problem: Chronic (8) Oxygen dependent Problem: Chronic (9) Chronic kidney disease, stage IV (severe) Problem: Chronic (10) Hyperlipidemia Problem: Chronic Qualifiers: (11) Hypertension Problem: Chronic Qualifiers: (12) COPD (chronic obstructive pulmonary disease) Problem: Chronic Qualifiers: (13) Unstable gait Problem: Acute
[2020-06-02] MEDS: oxyCODONE HCL 5 MG TABLET PO PRN ×2 (18:03→23:40)
[2020-06-02] MEDS: VANCOMYCIN HCL 125 MG CAPSULE PO SCH ×2 (18:05→20:04)
[2020-06-02] MEDS: BUDESONIDE 0.25 MG/2 ML VIAL.NEB IH SCH (18:22)
[2020-06-02] MEDS: PANTOPRAZOLE SODIUM 40 MG TABLET.EC PO SCH (20:04)
[2020-06-02] MEDS: CLOPIDOGREL BISULFATE 75 MG TABLET PO SCH (20:04)
[2020-06-03] MEDS: BUDESONIDE 0.25 MG/2 ML VIAL.NEB IH SCH (06:18)
[2020-06-03] MEDS ORDERED: LEVOTHYROXINE SODIUM 75 MCG TABLET PO SCH (07:00)
[2020-06-03] MEDS: oxyCODONE HCL 5 MG TABLET PO PRN (07:32)
[2020-06-03] MEDS: PANTOPRAZOLE SODIUM 40 MG TABLET.EC PO SCH (07:32)
[2020-06-03] MEDS ORDERED: TAMSULOSIN HCL 0.4 MG CAP.SR.24H PO SCH (09:00)
[2020-06-03] MEDS ORDERED: FUROSEMIDE 80 MG TABLET PO SCH (09:00)
[2020-06-03] MEDS ORDERED: ASPIRIN 81 MG TAB.CHEW PO SCH (09:00)
[2020-06-03] MEDS ORDERED: FERROUS SULFATE 325 MG TABLET PO SCH (09:00)
[2020-06-03] MEDS: VANCOMYCIN HCL 125 MG CAPSULE PO SCH (09:48)
[2020-06-03] MEDS: CLOPIDOGREL BISULFATE 75 MG TABLET PO SCH (09:48)
--- NOTE | 2020-06-03 10:56 | DS ---
(1) Weakness Problem: Chronic (2) Leukocytosis Problem: Acute (3) C. difficile colitis Problem: Acute (4) Pneumonia Problem: Acute (5) CKD (chronic kidney disease) Problem: Chronic Qualifiers: Chronic kidney disease stage: unspecified stage Qualified Code(s): N18.9 - Chronic kidney disease, unspecified (6) History of CHF (congestive heart failure) Problem: Chronic (7) Atrial fibrillation Problem: Chronic (8) Oxygen dependent Problem: Chronic (9) Chronic kidney disease, stage IV (severe) Problem: Chronic (10) Hyperlipidemia Problem: Chronic Qualifiers: (11) Hypertension Problem: Chronic Qualifiers: (12) COPD (chronic obstructive pulmonary disease) Problem: Chronic Qualifiers: (13) Unstable gait Problem: Acute Hospital Course: 89-year-old male with a past medical history of COPD, oxygen dependent with 2 L at rest and 4 L when ambulating, CKD 3, CHF, atrial fibrillation, CKD stage IV, chronic pain syndrome, constipation, GERD, hypertension, hyperlipidemia, TIA, parapneumonic effusion, severe aortic stenosis status post TAVR presents from home with weakness and a near fall. He was discharged from the [facility] yesterday after being hospitalized with pneumonia and C. difficile colitis. Prior to discharge the case making machine operator had recommended placement in a custodial but the patient refused. In the ER he was found to be afebrile, vitals were stable. He was placed on 3 L of oxygen via nasal cannula. He has a leukocytosis of 17.4, chest x-ray is positive for persistent but decreased bilateral small pleural effusions, otherwise no acute cardiopulmonary abnormality identified. He was given a dose of cefepime and vancomycin in the ER for presumed hospital-acquired pneumonia. He is being admitted for further observation and management. He was evaluated by hospice and was determined to be a good candidate on discharge. He is stable to be discharged today to [facility]. Procedures Performed: none Results and Findings: Lab Pending Results 06/02/20 10:40: WBC 17.4 H, RBC 3.09 L, Hgb 9.2 L, Hct 29.4 L, MCV 95.1, MCH 29.8, MCHC 31.3 L, RDW 14.5 H, Plt Count 289, MPV 8.8, Neutrophils % (Manual) 81 H, Lymphocytes % (Manual) 4 L, Monocytes % (Manual) 15 H, Neutrophils # (Manual) 14.1 H, Lymphocytes # (Manual) 0.7 L, Monocytes # (Manual) 2.6 H, Platelet Estimate Normal, RBC Morphology Normal 06/02/20 10:40: Sodium 134, Plasma Sodium 134, Potassium 3.7 D, Chloride 99, Carbon Dioxide 31.3, Anion Gap 7.4, BUN 26 H, Creatinine 1.87 H D, Est GFR (Non- Af Amer) 36 L D, BUN/Creatinine Ratio 13.9, Random Glucose 112 H, Calcium 8.2, Calcium Adj for Albumin 9.5, Total Bilirubin 0.4, AST 16, ALT 12 L, Alkaline Phosphatase 84, Troponin I 0.018, B-Natriuretic Peptide 1540 H, Total Protein 6.3, Albumin 2.0 L 06/02/20 12:27: SARS-CoV-2 (PCR) Not detected 06/02/20 14:23: Urine Color Dark yellow, Urine Appearance Clear, Urine pH 6.5, Ur Specific [place] 1.010, Urine Protein 15 H, Urine Glucose (UA) Negative, Urine Ketones Negative, Urine Blood 5 H, Urine Nitrate Negative, Urine Bilirubin 1 H, Urine Urobilinogen Normal, Ur Leukocyte Esterase Negative, Urine RBC Trace, Urine WBC None seen, Ur Epithelial Cells Trace, Urine Bacteria Trace, Urine Culture Comments No culture indicated Discharge Location: Other - [facility]. Disposition: Hospice Home Condition: Serious Discharge Activity: Activity as tolerated Discharge Diet: General/regular food Referrals: Clint Bains MD [Primary Care Provider] - Additional Patient Instructions (free text): [facility]. Oxygen supplementation with 2-4 L as needed via nasal cannula Prescriptions (Any new or edited meds): Aspirin [Aspirin Chewable] 81 mg PO DAILY #30 tab.chew Transmission Status: Pending to [facility] diphenhydrAMINE HCL [Benadryl] 25 mg PO HS PRN #30 cap PRN Reason: Sleep Transmission Status: Pending to [facility] Tamsulosin HCl [Flomax] 0.8 mg PO DAILY #60 tab Transmission Status: Pending to [facility] Furosemide 80 mg PO DAILY #120 tab Transmission Status: Pending to [facility] Oxycodone HCl 10 mg PO Q6H #120 cap Transmission Status: Sent to [facility] Clopidogrel Bisulfate [Plavix] 75 mg PO DAILY #30 tab Transmission Status: Pending to [facility] Pantoprazole Sodium [Protonix] 40 mg PO BID@0700,2100 #60 tab Transmission Status: Pending to [facility] Albuterol Sulfate [Proventil Hfa] 2 puff IH Q6H PRN #18 g PRN Reason: shortness of breath or wheezing Transmission Status: Pending to [facility] Budesonide [Pulmicort Respules] 2 ml IH BID #7 vial Transmission Status: Pending to [facility] Vancomycin HCl [Vancomycin] 125 mg PO QID #36 cap Transmission Status: Pending to [facility] ALPRAZolam [Xanax] 0.25 mg PO TID PRN #30 tab PRN Reason: Anxiety Transmission Status: Sent to [facility] Revefenacin [Yupelri] 175 mcg IH DAILY #7 vial.neb Transmission Status: Pending to [facility] Complete Home Medications List: Complete Home Medication List: ALPRAZolam [Xanax] 0.25 mg PO TID PRN #30 tab 06/03/20 Albuterol Sulfate [Proventil Hfa] 2 puff IH Q6H PRN #18 g 06/03/20 Aspirin [Aspirin Chewable] 81 mg PO DAILY #30 tab.chew 06/03/20 Budesonide [Pulmicort Respules] 2 ml IH BID #7 vial 06/03/20 Clopidogrel Bisulfate [Plavix] 75 mg PO DAILY #30 tab 06/03/20 Furosemide 80 mg PO DAILY #120 tab 06/03/20 Oxycodone HCl 10 mg PO Q6H #120 cap 06/03/20 Pantoprazole Sodium [Protonix] 40 mg PO BID@0700,2100 #60 tab 06/03/20 Revefenacin [Yupelri] 175 mcg IH DAILY #7 vial.neb 06/03/20 Tamsulosin HCl [Flomax] 0.8 mg PO DAILY #60 tab 06/03/20 Vancomycin HCl [Vancomycin] 125 mg PO QID #36 cap 06/03/20 diphenhydrAMINE HCL [Benadryl] 25 mg PO HS PRN #30 cap 06/03/20
[2020-06-03 11:22] VITALS: BP 138/69
== END 2020-06-03 11:33 | disposition hospice, home (50) ==
LOC: ER 10:00 → MS 10:00
PROVIDERS: ADMIT Internal Medicine; ATTEND Allergy & Immunology

== ENCOUNTER 2020-10-05 13:26 | Inpatient (IN) ==
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
[2020-10-05 14:07] LABS: Hematocrit 28.5 % (42.0-52.0); Hemoglobin 8.6 gm/dL (13.5-18.0); Mean Cell Volume 91.1 fl (78-100); Mean Corpuscular Hemoglobin 27.5 pg (27-31); Mean Corpuscular Hgb Conc 30.2 g/dl (32-36); Mean Platelet Volume 9.2 fl (8-11.3); Platelet Count 266 K/mm3 (150-450); Red Blood Count 3.13 M/mm3 (4.7-6.0); Red Cell Distribution Width 14.6 % (11.5-14.0); White Blood Count 17.9 K/mm3 (4.0-10.5)
[2020-10-05 14:09] LABS: Total Cells Counted 100
[2020-10-05 14:13] LABS: Albumin * 2.3 gm/dl (3.4-5.0); Anion Gap 10.4 mmol/L (6.8-13.8); BUN/Creatinine Ratio 22.5 (9.0-21.6); Bilirubin, Total 0.4 mg/dL (0.0-1.1); Ca. Corrected For Albumin 9.6 mg/dL (8.4-10.2); Calcium * 8.6 mg/dL (7.9-10.9); Carbon Dioxide 35.1 mmol/L (24-32.6); Total Protein 7.7 gm/dL (6.2-8.2)
[2020-10-05] MEDS ORDERED: NORMAL SALINE 1,000 ML IV ONE (14:15)
[2020-10-05 14:16] LABS: Potassium 2.5 mmol/L (3.4-4.6)
[2020-10-05] MEDS ORDERED: MORPHINE SULFATE 2 MG/ML DISP.SYRIN IV ONE (14:16)
[2020-10-05] MEDS ORDERED: ONDANSETRON HCL/PF 2 MG/ML VIAL IV ONE (14:16)
[2020-10-05 14:27] LABS: Band 1 % (0-2.0); Lymphocyte 2 % (20-51); Monocyte 7 % (0-9); Neutrophil 90 % (42-75); Neutrophil # 16.1 K/mm3 (1.3-6.0); Platelet Estimate Normal (NORMAL)
[2020-10-05 14:28] LABS: Hypochromia 2+
[2020-10-05 14:29] LABS: Hypersegmented Polys Trace; Toxic Granulation Trace
[2020-10-05] MEDS: POTASSIUM CHLORIDE IN WATER 100 ML IV SCH ×4 (14:29→18:48)
[2020-10-05 16:21] LABS: Urine Bilirubin Negative (NEGATIVE); Urine Blood Negative /ul (NEGATIVE); Urine Ketone Negative (NEGATIVE); Urine Nitrite Negative (NEGATIVE); Urine Protein Negative (NEGATIVE); Urine Specific Gravity 1.015 SP.GR. (1.005-1.030); Urine Urobilinogen Normal (NORMAL); Urine pH 5.5 pH (5.0-7.0)
[2020-10-05 16:35] LABS: Urine Appearance Clear (CLEAR); Urine Bacteria TRACE; Urine Color Yellow; Urine Hyaline Cast 0-5 /LPF; Urine RBC None Seen /hpf (0-5); Urine WBC None Seen /hpf (0-5)
[2020-10-05] MEDS ORDERED: HYDROmorphone HCL 1 MG/ML DISP.SYRIN IV ONE (17:22)
[2020-10-05] MEDS ORDERED: ALBUTEROL SULFATE 200 PUFF INHALER IH PRN (18:44)
[2020-10-05] MEDS ORDERED: hydrALAZINE HCL 20 MG/ML VIAL IV PRN (18:46)
--- NOTE | 2020-10-05 18:48 | HP ---
Chief Complaint - Chief Complaint Date of Service: 10/05/20 Time of Service: 18:47 Chief Complaint: left hip pain History of Present Illness: 89-year-old male with history of severe chronic obstructive pulmonary disease currently on hospice, emphysema, A. fib, chronic kidney disease stage IV, hypertension, chronic low back pain who was on narcotics long-term presented to the hospital today from his nursing care center after ground-level fall resulted in left hip pain. X-ray of his hip showed mildly displaced left intertrochanteric femur fracture. Ortho was consulted who were considering repairing his hip tomorrow if patient is medically cleared. In the ER patient had lab work pertinent for chronic anemia with a hemoglobin of 8.6 and hematocrit of 20.5. He did have an elevated white count at 17.9 with a left shift at 90%. His CHEM panel was pertinent for hypokalemia at 2.5, kidney disease with a creatinine at 2.89 and a GFR of 22 (baseline close to 30), he had an albumin of 2.3. His vital signs have been stable though his heart rate has been labile ranging from 80-125. Patient is not anticoagulated for his A. fib and is not currently on any medications for rate control likely due to a fairly low blood pressure at baseline. Patient was admitted in inpatient for pain control and possible hip repair tomorrow. Patient chronically wears oxygen at 4 L to keep his sats between 94 to 97%. Today when evaluated patient is pleasant though slightly confused, likely from the Dilaudid. He has an allergy to morphine and cannot tolerate this. Patient adamantly wants to get his hip repaired despite the risks though I am unsure at this time if he is completely competent to make this decision on his own. I did call and discuss this with his POA who happens to be his granddaughter. She also was adamant that he undergo surgery despite medical risks if the hospital was comfortable doing so. I explained to her in detail that he has a fairly high surgical risk with his chronic medical conditions but patient is fairly mo bile in the senior living and would not want to just lay in bed all day. DAVID is revoking hospice care tomorrow so if it is determined that he can undergo surgery it can be completed as soon as possible. I explained to her that this would be up to our orthopedic surgeon as well as long as he deems it appropriate. She understands that due to his chronic medical conditions that it may not be possible at this time but will discuss this with the surgeon tomorrow. Patient did have fairly severe aortic stenosis that was repaired in April of this year, his POA states that he tolerated anesthesia well and had no complications with it. Discussed risks with the patient as well which include heart complications, worsening kidney failure, blood clots, wound infections, sepsis, prolonged hospitalization stay which she states he understands and wants to proceed with surgery if possible. Due to the seriousness of the injury, I think the patient should proceed with surgery due to his wishes and his family's wishes with understanding that there is serious risk of complication and even which they stated understanding to and are in agreement with. I did explain to him that the surgeon will have final say on this but that I would give him a medical clearance with understanding of the risks involved. Patient is currently resting comfortable in bed. 1 mg Dilaudid was given earlier which is enough to keep him out of pain and fairly conversant. He is hard of hearing but otherwise very pleasant. Medical History (Last Reviewed 10/05/20 @ 17:46 by Lissette Carreno RN) Observation for suspected concussion (Acute) Multiple bruises (Acute) Severe chronic obstructive pulmonary disease (Chronic) Constipation by delayed colonic transit (Resolved) Acute urinary retention (Acute) Fall at home (Acute) Rhinorrhea (Acute) Chronic low back pain (Chronic) injured his back in 2007 failed back surgery 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 Fernandez oxygen level is 90% at rest sitting. He desaturates to 84% which is standing up. He desaturates to 80% when walking. He becomes weak and lightheaded and has to sit down to recover. He will need an oxygen concentrator at home and portable oxygen to travel outside the home for doctor's appointments etc. He will benefit from this significantly and may help his heart rate and rhythm improved as well. When he has been hospitalized and was on oxygen he was much more comfortable. I will send this request to [facility]. Chronic kidney disease, stage IV (severe) (Chronic) Hypotension (Acute) Systolics in supine, sitting, and standing are all in the 92-94 range. Lightheadedness (Acute) Appears NOT to be orthostatic. All 3 way blood pressures are in the low 90s systolic but he gets lightheaded when he stands up. The pulse does not change appreciably. Weakness (Chronic) Acutely worse however. Persistent pneumonia (Chronic) GERD with esophagitis (Chronic) Prostatism (Chronic) He is getting up 3-4 times a night. He has urgency with urination but no dysuria. He does not void normal volumes as it seems to be smaller volume than usual. I expect he is not completely emptying his bladder. Emphysema with chronic bronchitis (Chronic) Chronic pain syndrome (Chronic) Hyperlipidemia (Chronic) Hypertension (Chronic) Low back pain (Chronic) There is occasional sciatica down the right leg. 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) AF (paroxysmal atrial fibrillation) Hummel palsy CHF (congestive heart failure) COPD (chronic obstructive pulmonary disease) Colonoscopy refused Constipation High cholesterol Hx-TIA (transient ischemic attack) Hypertension Injury of right common femoral artery Low back pain Parapneumonic effusion Pneumonia Severe aortic stenosis Shingles Surgical History: Surgical History (Last Reviewed 10/05/20 @ 17:46 by Lissette Carreno RN) H/O heart artery stent Heart valve replaced History of appendectomy S/P TAVR (transcatheter aortic valve replacement) H/O hemorrhoidectomy History of back surgery History of esophagogastroduodenoscopy (EGD) Onset Date: 03/17/19 03/17/19 Bagan-clotest negative, moderate benign reactive gastropathy/chemical gastritis. Hiatal hernia. Hx of hernia repair Family History: Family History (Last Reviewed 10/05/20 @ 17:46 by Lissette Carreno RN) Father Myocardial infarction Social History: (Last Reviewed 10/05/20 @ 17:47 by Lissette Carreno RN) Social History: senior living: Yes senior living comment: [facility] Marital status: lives independently: No household members: none current occupational status: retired Highest level of school completed/degree received: 8th grade Service: Yes branch: [employer] Tobacco: Smoking Status: Former smoker Alcohol: alcohol intake: never Substance Use: substance use type: does not use Dietary Habits: caffeine: Yes Type: coffee Review Of Systems (GEN) - Review of Systems Generalized/Overall Review: Present: Weakness. Absent: Chills, Fever EENTM: Present: No Symptoms Reported - I can have a great Respiratory: Present: No Symptoms Reported Cardiac: Absent: Chest Pain, Edema, Palpitations Abdominal: Absent: Nausea, Vomiting Genitourinary: Present: No Symptoms Reported Musculoskeletal: Present: Joint Pain - Left hip, Back Pain Neurological: Present: No Symptoms Reported Skin: Present: No Symptoms Reported Endocrine: Present: No Symptoms Reported Immunizations: IMMUNIZATION HX Immunizations Up to Date Yes History of Influenza Vaccine Yes Hx Pneumococcal Vaccination Yes Allergies/Adverse Reactions: Allergies Allergy/AdvReac Type Severity Reaction Status Date / Time morphine AdvReac Hallucinati Verified 10/05/20 17:04 ons Home Medications: HOME MEDICATIONS Albuterol Sulfate [Proventil Hfa] 2 puff IH Q6H PRN #18 g 06/03/20 [Last Taken Unknown] Budesonide [Pulmicort Respules] 2 ml IH BID #7 vial 06/03/20 [Last Taken Unknown] Furosemide 80 mg PO DAILY #120 tab 06/03/20 [Last Taken Unknown] oxycodone-acetaminophen 10 mg-325 mg tablet 1 tab PO QID PRN #240 tab 09/28/20 [Last Taken Unknown] Acetaminophen 625 mg PO Q6H PRN 10/05/20 [Last Taken Unknown] Albuterol Sulfate/Ipratropium [Duoneb 2.5-0.5MG/3ML Soln] 3 ml IH BID 10/05/20 [Last Taken Unknown] Bisacodyl 10 mg RC DAILY PRN 10/05/20 [Last Taken Unknown] Hydrochlorothiazide [Hydrodiuril] 25 mg PO DAILY 10/05/20 [Last Taken Unknown] Mag Hydrox/Aluminum Hyd/Simeth [Vicky-Lanta Liquid] 30 ml PO Q4H PRN 10/05/20 [Last Taken Unknown] Melatonin 3 mg PO HS 10/05/20 [Last Taken Unknown] Ondansetron [Zofran Odt] 4 mg PO Q8H PRN 10/05/20 [Last Taken Unknown] Pantoprazole Sodium [Protonix] 20 mg PO DAILY 10/05/20 [Last Taken Unknown] Sennosides/Docusate Sodium [Senexon-S 50-8.6 mg Tablet] 2 ea PO BID 10/05/20 [Last Taken Unknown] Tamsulosin HCl [Flomax] 0.8 mg PO HS 10/05/20 [Last Taken Unknown] oxyCODONE HCL [Oxycodone HCl ER] 20 mg PO BID 10/05/20 [Last Taken Unknown] Exam - Exam Vital Signs: Vital Signs - Last Taken Temp 36.7 C 10/05/20 17:48 Pulse 80 10/05/20 17:48 Resp 20 10/05/20 17:48 BP 93/33 10/05/20 17:48 Pulse Ox 94 10/05/20 17:48 Constitutional: Present: Alert, Cooperative, Mild distress - Hip and back pain, Elderly, Thin and frail. Absent: Oriented x3 - X2 ENT Exam: Present: hard of hearing Eye Exam: bilateral eye: normal inspection, EOMI Neck: Present: non-tender, supple Back Exam: Present: decreased range of motion, vertebral tenderness Respiratory: Present: no respiratory distress, decreased breath sounds, wheezing, expiration (prolonged). Absent: normal breath sounds - Poor airflow due to severe lung disease, in all lung kauffman, crackles, rales Cardiovascular/Chest: Present: no murmur, irregularly irregular, other - Click heard over aortic valve Peripheral Pulses: carotid (R): 2+, carotid (L): 2+ Abdomen: Present: soft, nontender, nondistended Extremity: Present: leg pain, other - Normal sensory and left lower extremity, normal dorsal pedis pulse, able to move toes to command, lower extremity warm to the touch. Absent: swelling Skin Exam: Present: normal color, warm/dry Neurologic: Present: lug loader II-XII nml as tested, no motor/sensory deficits, normal mood/affect Appearance: Present: appropriate appearance, impaired insight Eye contact: Present: cooperative, good eye contact, normal speech Thoughts: Present: normal thought pattern, normal mood /affect Diagnostic Studies: Abnormal Lab Results 10/05/20 10/05/20 10/05/20 Range/Units 13:55 13:55 16:00 WBC 17.9 H (4.0-10.5) K/mm3 RBC 3.13 L (4.7-6.0) M/mm3 Hgb 8.6 L (13.5-18.0) gm/dL Hct 28.5 L (42.0-52.0) % MCHC 30.2 L (32-36) g/dl RDW 14.6 H (11.5-14.0) % Neutrophils % (Manual) 90 H (42-75) % Lymphocytes % (Manual) 2 L (20-51) % Neutrophils # (Manual) 16.1 H (1.3-6.0) K/mm3 Lymphocytes # (Manual) 0.4 L (1.5-3.5) k/mm3 Monocytes # (Manual) 1.3 H (0.0-1.0) k/mm3 Potassium 2.5 L (3.4-4.6) mmol/L Chloride 91 L (97-106) mmol/L Carbon Dioxide 35.1 H (24-32.6) mmol/L BUN 65 H (6-23) mg/dL Creatinine 2.89 H (0.4-1.4) mg/dL Est GFR (Non-Af Amer) 22 L (60-130) mL/min BUN/Creatinine Ratio 22.5 H (9.0-21.6) Random Glucose 122 H (70-110) mg/dL Albumin 2.3 L (3.4-5.0) gm/dl Hyaline Casts 0-5 H (NONE) /LPF Laboratory Results WBC 17.9 K/mm3 (4.0-10.5) H 10/05/20 13:55 RBC 3.13 M/mm3 (4.7-6.0) L 10/05/20 13:55 Hgb 8.6 gm/dL (13.5-18.0) L 10/05/20 13:55 Hct 28.5 % (42.0-52.0) L 10/05/20 13:55 MCV 91.1 fl (78-100) 10/05/20 13:55 MCH 27.5 pg (27-31) 10/05/20 13:55 MCHC 30.2 g/dl (32-36) L 10/05/20 13:55 RDW 14.6 % (11.5-14.0) H 10/05/20 13:55 Plt Count 266 K/mm3 (150-450) 10/05/20 13:55 MPV 9.2 fl (8-11.3) 10/05/20 13:55 Neutrophils % (Manual) 90 % (42-75) H 10/05/20 13:55 Band Neuts % (Manual) 1 % (0-2.0) 10/05/20 13:55 Lymphocytes % (Manual) 2 % (20-51) L 10/05/20 13:55 Monocytes % (Manual) 7 % (0-9) 10/05/20 13:55 Neutrophils # (Manual) 16.1 K/mm3 (1.3-6.0) H 10/05/20 13:55 Lymphocytes # (Manual) 0.4 k/mm3 (1.5-3.5) L 10/05/20 13:55 Monocytes # (Manual) 1.3 k/mm3 (0.0-1.0) H 10/05/20 13:55 Hypersegmented Polys Trace 10/05/20 13:55 Toxic Granulation Trace 10/05/20 13:55 Platelet Estimate Normal (NORMAL) 10/05/20 13:55 Hypochromasia 2+ 10/05/20 13:55 Sodium 134 mmol/L (132-142) 10/05/20 13:55 Plasma Sodium 134 mmol/L (130-142) 10/05/20 13:55 Potassium 2.5 mmol/L (3.4-4.6) L 10/05/20 13:55 Chloride 91 mmol/L (97-106) L 10/05/20 13:55 Carbon Dioxide 35.1 mmol/L (24-32.6) H 10/05/20 13:55 Anion Gap 10.4 mmol/L (6.8-13.8) 10/05/20 13:55 BUN 65 mg/dL (6-23) H 10/05/20 13:55 Creatinine 2.89 mg/dL (0.4-1.4) H 10/05/20 13:55 Est GFR (Non-Af Amer) 22 mL/min (60-130) L 10/05/20 13:55 BUN/Creatinine Ratio 22.5 (9.0-21.6) H 10/05/20 13:55 Random Glucose 122 mg/dL (70-110) H 10/05/20 13:55 Calcium 8.6 mg/dL (7.9-10.9) 10/05/20 13:55 Calcium Adj for Albumin 9.6 mg/dL (8.4-10.2) 10/05/20 13:55 Total Bilirubin 0.4 mg/dL (0.0-1.1) 10/05/20 13:55 AST 34 U/L (0-48) 10/05/20 13:55 ALT 21 U/L (19-67) 10/05/20 13:55 Alkaline Phosphatase 97 U/L (50-170) 10/05/20 13:55 Total Protein 7.7 gm/dL (6.2-8.2) 10/05/20 13:55 Albumin 2.3 gm/dl (3.4-5.0) L 10/05/20 13:55 Urine Color Yellow 10/05/20 16:00 Urine Appearance Clear (CLEAR) 10/05/20 16:00 Urine pH 5.5 pH (5.0-7.0) 10/05/20 16:00 Ur Specific Hitchcock 1.015 SP.GR. (1.005-1.030) 10/05/20 16:00 Urine Protein Negative mg/dL (NEGATIVE) 10/05/20 16:00 Urine Glucose (UA) Negative mg/dL (NEGATIVE) 10/05/20 16:00 Urine Ketones Negative mg/dL (NEGATIVE) 10/05/20 16:00 Urine Blood Negative /ul (NEGATIVE) 10/05/20 16:00 Urine Nitrate Negative (NEGATIVE) 10/05/20 16:00 Urine Bilirubin Negative mg/dl (NEGATIVE) 10/05/20 16:00 Urine Urobilinogen Normal EU/dl (NORMAL) 10/05/20 16:00 Ur Leukocyte Esterase Negative /ul (NEGATIVE) 10/05/20 16:00 Urine RBC None seen /hpf (0-5) 10/05/20 16:00 Urine WBC None seen /hpf (0-5) 10/05/20 16:00 Ur Epithelial Cells 0-5 /hpf (0-5) 10/05/20 16:00 Urine Bacteria Trace (NONE) 10/05/20 16:00 Hyaline Casts 0-5 /LPF (NONE) H 10/05/20 16:00 Urine Culture Comments No culture indicated 10/05/20 16:00 SARS-CoV-2 (PCR) Not detected (NotDetected) 10/05/20 14:45 Assessment/Plan - Narrative Narrative: 89-year-old male admitted to the hospital for a ground-level fall at his nursing facility which resulted in left intertrochanteric femur fracture. Patient currently n.p.o. Patient is currently comfortable with IV Dilaudid ordered every 4 hours as needed for pain. Orthopedics has been consulted who will review his case and determine whether or not they feel like he is a surgical candidate. Patient has significant comorbidities and issues with his health including anemia, chronic kidney disease stage IV, emphysema, severe end-stage COPD on hospice (currently being revoked by POA), intractable back pain on narcotics long-term, and atrial fibrillation. Patient also has history of hypertension and acid reflux. Patient has poor outcome and long-term survival already with his chronic medical conditions and an unrepaired femur fracture will definitely hasten his demise. Patient also at risk during surgery for serious complications. But due to patient's wishes and POA's wishes, they wish to proceed with surgical repair despite risk factors understanding that it may not go well for him. Patient will need to be typed and crossed prior to surgery as he will likely need a unit of blood or 2 in his postop recovery. We will repeat CBC and CMP in the morning. With holding most of his medications but ordered hydralazine IV as needed for systolic blood pressure greater than 165. We will restart his medications once he is no longer n.p.o. Patient's breathing treatments have been ordered though and patient will be continued on oxygen as he uses continuously throughout the day. Goal is to keep his sats between 93 to 96%. Patient uses 4 L at home daily and so I do not want to drop his sats too much as he may be accustomed to this at this time. Patient has a surgical risk for serious complication at 17.5% on a surgical risk calculator with an expected hospital stay of 7.5 days. We will discuss this case with Dr. Georges in the morning if he has questions prior to surgery if he decides to do this. The family understands that due to his age and chronic medical conditions that it may be determined that this is not the best course of action for him and we will discuss that scenario with him if that is what is agreed upon between myself and Dr. Georges. Due to the urgency of this issue, and with a firm understanding by both the patient and his family, he is medically cleared to undergo surgery at this time again as long as our orthopedist is in agreement with this. Currently not on any anticoagulation or SCDs for comfort. Nurse will call questions or concerns. 2-hour spent reviewing patient's chart, calculating surgical risks, discussing case with patient and patient's family, placing orders, and dictating note. - Assessment/Plan (1) Hip fracture Problem: Acute (2) Fall at home Problem: Acute Qualifiers: Encounter type: initial encounter Qualified Code(s): W19.XXXA - Unspecified fall, initial encounter; Y92.009 - Unspecified place in unspecified non- institutional (private) residence as the place of occurrence of the external cause (3) Chronic kidney disease, stage IV (severe) Problem: Chronic (4) Oxygen dependent Problem: Chronic (5) Anemia Problem: Acute (6) Leukocytosis Problem: Acute Qualifiers: Leukocytosis type: unspecified Qualified Code(s): D72.829 - Elevated white blood cell count, unspecified (7) History of CHF (congestive heart failure) Problem: Chronic (8) Atrial fibrillation Problem: Chronic (9) Walker as ambulation aid Problem: Chronic (10) Unstable gait Problem: Acute (11) Hypokalemia Problem: Acute (12) Weakness Problem: Chronic (13) 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
[2020-10-05] MEDS ORDERED: BUDESONIDE 0.25 MG/2 ML VIAL.NEB ONE (20:12)
[2020-10-05] MEDS: ALBUTEROL SULFATE/IPRATROPIUM 3 ML NEBU IH SCH (20:53)
[2020-10-05] MEDS: BUDESONIDE 0.25 MG/2 ML VIAL.NEB IH SCH (20:54)
[2020-10-05] MEDS ORDERED: ONDANSETRON HCL/PF 2 MG/ML VIAL IV PRN (21:49)
[2020-10-05] MEDS: POTASSIUM CHLORIDE 20 MEQ in DEXTROSE 5%-0.5 NORMAL SALINE 990 ML IV SCH (22:01)
[2020-10-05] MEDS: HYDROmorphone HCL 1 MG/ML DISP.SYRIN IV PRN (22:04)
[2020-10-06] MEDS: HYDROmorphone HCL 1 MG/ML DISP.SYRIN IV PRN ×3 (04:47→19:38)
[2020-10-06] MEDS: ALBUTEROL SULFATE/IPRATROPIUM 3 ML NEBU IH SCH ×3 (06:05→18:20)
[2020-10-06] MEDS: BUDESONIDE 0.25 MG/2 ML VIAL.NEB IH SCH ×3 (06:06→18:20)
[2020-10-06 06:33] LABS: Mean Cell Volume 91.4 fl (78-100); Mean Corpuscular Hgb Conc 30.6 g/dl (32-36); Mean Platelet Volume 9.3 fl (8-11.3); Platelet Count 221 K/mm3 (150-450); Red Blood Count 2.57 M/mm3 (4.7-6.0); Red Cell Distribution Width 14.6 % (11.5-14.0); White Blood Count 11.5 K/mm3 (4.0-10.5)
[2020-10-06 06:35] LABS: Albumin * 1.9 gm/dl (3.4-5.0); Anion Gap 8.6 mmol/L (6.8-13.8); BUN/Creatinine Ratio 22.7 (9.0-21.6); Bilirubin, Total 0.3 mg/dL (0.0-1.1); Ca. Corrected For Albumin 9.5 mg/dL (8.4-10.2); Calcium * 8.1 mg/dL (7.9-10.9); Carbon Dioxide 34.9 mmol/L (24-32.6); Total Protein 6.5 gm/dL (6.2-8.2)
[2020-10-06 07:15] LABS: Hematocrit 23.5 % (42.0-52.0)
[2020-10-06 07:16] LABS: Potassium 2.5 mmol/L (3.4-4.6); Total Cells Counted 100
[2020-10-06 08:15] LABS: Hemoglobin 7.2 gm/dL (13.5-18.0)
[2020-10-06 08:21] LABS: Eosinophil 2 % (0-3); Lymphocyte 7 % (20-51); Monocyte 16 % (0-9); Neutrophil 75 % (42-75); Neutrophil # 8.6 K/mm3 (1.3-6.0)
[2020-10-06 08:24] LABS: Hypochromia 1+; Polychromasia Trace
[2020-10-06 08:25] LABS: Basophilic Stippling Trace; Target Cells Trace
--- NOTE | 2020-10-06 08:39 | CONS ---
[facility] - General Date of Service: 10/06/20 Narrative: Per notes: Mr. Lundberg is an 89-year-old gentleman living in a nursing facility when he was being assisted with transfer when he fell resulting in injury to his left hip. He was seen in the emergency department and found to have a nondisplaced intertrochanteric femur fracture. He was admitted for care. He is a limited ambulator and the discussion was palliative care versus fixation. His family wished to proceed with fixation. He is resting in bed, arousable but not following commands at this time. Source: RN/MD Exam Limitations: clinical condition - History of Present Illness Timing/Duration: 24 hours Severity: mild Modifying Factors - (Worsens): Reports: movement Modifying Factors - (Improves): Reports: immobilization Associated Symptoms: other - Unable to obtain Allergies/Adverse Reactions: Allergies morphine Adverse Reaction (Verified 10/05/20 17:04) Hallucinations Home Medications: Home Medications Medication Instructions Recorded Last Taken Albuterol Sulfate [Proventil Hfa] 2 puff IH Q6H PRN #18 g 06/03/20 Unknown Budesonide [Pulmicort Respules] 2 ml IH BID #7 vial 06/03/20 Unknown Furosemide 80 mg PO DAILY #120 tab 06/03/20 Unknown oxycodone-acetaminophen 10 mg-325 1 tab PO QID PRN #240 tab 09/28/20 Unknown mg tablet Acetaminophen 625 mg PO Q6H PRN 10/05/20 Unknown Albuterol Sulfate/Ipratropium 3 ml IH BID 10/05/20 Unknown [Duoneb 2.5-0.5MG/3ML Soln] Bisacodyl 10 mg RC DAILY PRN 10/05/20 Unknown Hydrochlorothiazide [Hydrodiuril] 25 mg PO DAILY 10/05/20 Unknown Mag Hydrox/Aluminum Hyd/Simeth 30 ml PO Q4H PRN 10/05/20 Unknown [Vicky-Lanta Liquid] Melatonin 3 mg PO HS 10/05/20 Unknown Ondansetron [Zofran Odt] 4 mg PO Q8H PRN 10/05/20 Unknown Pantoprazole Sodium [Protonix] 20 mg PO DAILY 10/05/20 Unknown Sennosides/Docusate Sodium 2 ea PO BID 10/05/20 Unknown [Senexon-S 50-8.6 mg Tablet] Tamsulosin HCl [Flomax] 0.8 mg PO HS 10/05/20 Unknown oxyCODONE HCL [Oxycodone HCl ER] 20 mg PO BID 10/05/20 Unknown Procedures Excision of Stomach, Via Natural or Artificial Opening Endoscopic, Diagnostic (03/14/19) Repair Face Skin, External Approach (03/14/19) Transfusion of Nonautologous Red Blood Cells into Peripheral Vein, Percutaneous Approach (03/14/19) Medications - Medications Current Medications: Current Medications Albuterol/Ipratropium (Albuterol Sulfate/Ipratropium 3 Ml Nebu) 3 ml IH BIDRT [facility] Stop: 11/04/20 21:01 Last Admin: 10/06/20 06:05 Dose: 3 ml Documented by: Budesonide (Budesonide 0.25 Mg/2 Ml Vial.[facility]) 0.25 mg IH BIDRT [facility] Stop: 11/04/20 21:01 Last Admin: 10/06/20 06:06 Dose: 0.25 mg Documented by: Hydromorphone HCl (Hydromorphone Hcl 1 Mg/Ml Disp.Syrin) 1 mg IV Q4H PRN PRN Reason: Pain Stop: 11/04/20 18:43 Last Admin: 10/06/20 04:47 Dose: 1 mg Documented by: Potassium Chloride 20 meq/ (Dextrose/Sodium Chloride) 1,000 mls @ 75 mls/hr IV .[id number] [facility] Stop: 11/04/20 22:01 Last Admin: 10/05/20 22:01 Dose: 75 mls/hr Documented by: Review of Systems - Review of Systems Narrative: Unable to obtain Physical Examination - Exam Narrative: Left lower extremity: Palpable dorsalis pedis pulse, he does move his toes to stimuli, he is sleeping and arousable but quickly falls asleep and does not follow commands at this time, no lacerations, ecchymosis, or open wounds on the left hip Vital Signs: Vital Signs - Last Taken Temp 36.4 C 10/06/20 06:00 Pulse 82 10/06/20 06:16 Resp 19 10/06/20 06:16 BP 99/48 10/06/20 06:00 Pulse Ox 100 10/06/20 06:06 O2 Oxygen Delivery Method Nasal Cannula - Results and Findings: Narrative: AP pelvis 2 views left hip: Decreased mineralization with nondisplaced left intertrochanteric femur fracture Lab/Microbiology results last 24 hrs: Abnormal/Pending Laboratory Last 24 HRS 10/06/20 10/06/20 10/05/20 06:25 06:25 16:00 WBC 11.5 H D RBC 2.57 L Hgb 7.2 L* Hct 23.5 L* MCHC 30.6 L RDW 14.6 H Neutrophils % (Manual) Lymphocytes % (Manual) 7 L Monocytes % (Manual) 16 H Neutrophils # (Manual) 8.6 H Lymphocytes # (Manual) 0.8 L Monocytes # (Manual) 1.8 H Potassium 2.5 L Chloride 95 L Carbon Dioxide 34.9 H BUN 52 H Creatinine 2.29 H D Est GFR (Non-Af Amer) 29 L D BUN/Creatinine Ratio 22.7 H Random Glucose 125 H ALT 15 L Albumin 1.9 L Hyaline Casts 0-5 H 10/05/20 10/05/20 13:55 13:55 WBC 17.9 H RBC 3.13 L Hgb 8.6 L Hct 28.5 L MCHC 30.2 L RDW 14.6 H Neutrophils % (Manual) 90 H Lymphocytes % (Manual) 2 L Monocytes % (Manual) Neutrophils # (Manual) 16.1 H Lymphocytes # (Manual) 0.4 L Monocytes # (Manual) 1.3 H Potassium 2.5 L Chloride 91 L Carbon Dioxide 35.1 H BUN 65 H Creatinine 2.89 H Est GFR (Non-Af Amer) 22 L BUN/Creatinine Ratio 22.5 H Random Glucose 122 H ALT Albumin 2.3 L Hyaline Casts - Assessments/Findings (1) Fracture, intertrochanteric, left femur Problem: Acute Qualifiers: Encounter type: initial encounter Fracture type: closed Fracture alignment: nondisplaced Qualified Code(s): S72.145A - Nondisplaced intertrochanteric fracture of left femur, initial encounter for closed fracture
[2020-10-06] MEDS: PANTOPRAZOLE SODIUM 40 MG in NORMAL SALINE 100 ML IV SCH (08:53)
[2020-10-06] MEDS: POTASSIUM CHLORIDE 20 MEQ in DEXTROSE 5%-0.5 NORMAL SALINE 990 ML IV SCH (11:43)
--- NOTE | 2020-10-06 13:08 | ANES ---
Anesthesia Pre Procedure Eval Vitals/Labs: Last Vital Signs Temp 36.3 C 10/06/20 10:57 Pulse 92 10/06/20 10:57 Resp 18 10/06/20 10:57 BP 97/41 10/06/20 10:57 Pulse Ox 96 10/06/20 10:57 HOME MEDICATIONS Albuterol Sulfate [Proventil Hfa] 2 puff IH Q6H PRN #18 g 06/03/20 [Last Taken Unknown] Budesonide [Pulmicort Respules] 2 ml IH BID #7 vial 06/03/20 [Last Taken Unknown] Furosemide 80 mg PO DAILY #120 tab 06/03/20 [Last Taken Unknown] oxycodone-acetaminophen 10 mg-325 mg tablet 1 tab PO QID PRN #240 tab 09/28/20 [Last Taken Unknown] Acetaminophen 625 mg PO Q6H PRN 10/05/20 [Last Taken Unknown] Albuterol Sulfate/Ipratropium [Duoneb 2.5-0.5MG/3ML Soln] 3 ml IH BID 10/05/20 [Last Taken Unknown] Bisacodyl 10 mg RC DAILY PRN 10/05/20 [Last Taken Unknown] Hydrochlorothiazide [Hydrodiuril] 25 mg PO DAILY 10/05/20 [Last Taken Unknown] Mag Hydrox/Aluminum Hyd/Simeth [Vicky-Lanta Liquid] 30 ml PO Q4H PRN 10/05/20 [Last Taken Unknown] Melatonin 3 mg PO HS 10/05/20 [Last Taken Unknown] Ondansetron [Zofran Odt] 4 mg PO Q8H PRN 10/05/20 [Last Taken Unknown] Pantoprazole Sodium [Protonix] 20 mg PO DAILY 10/05/20 [Last Taken Unknown] Sennosides/Docusate Sodium [Senexon-S 50-8.6 mg Tablet] 2 ea PO BID 10/05/20 [Last Taken Unknown] Tamsulosin HCl [Flomax] 0.8 mg PO HS 10/05/20 [Last Taken Unknown] oxyCODONE HCL [Oxycodone HCl ER] 20 mg PO BID 10/05/20 [Last Taken Unknown] Allergies/Adverse Reactions: Allergies Allergy/AdvReac Type Severity Reaction Status Date / Time morphine AdvReac Hallucinati Verified 10/05/20 17:04 ons - Planned Procedure Planned Procedure: Hip fracture, hypokalemia Medication List Reviewed:: Yes Allergies Verified: Yes Medical History (Last Reviewed 10/06/20 @ 13:07 by Bob Martines CRNA) Observation for suspected concussion (Acute) Multiple bruises (Acute) Severe chronic obstructive pulmonary disease (Chronic) Constipation by delayed colonic transit (Resolved) Acute urinary retention (Acute) Fall at home (Acute) Rhinorrhea (Acute) Chronic low back pain (Chronic) injured his back in 2007 failed back surgery 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 Fernandez oxygen level is 90% at rest sitting. He desaturates to 84% which is standing up. He desaturates to 80% when walking. He becomes weak and lightheaded and has to sit down to recover. He will need an oxygen concentrator at home and portable oxygen to travel outside the home for doctor's appointments etc. He will benefit from this significantly and may help his heart rate and rhythm improved as well. When he has been hospitalized and was on oxygen he was much more comfortable. I will send this request to [facility]. Chronic kidney disease, stage IV (severe) (Chronic) Hypotension (Acute) Systolics in supine, sitting, and standing are all in the 92-94 range. Lightheadedness (Acute) Appears NOT to be orthostatic. All 3 way blood pressures are in the low 90s systolic but he gets lightheaded when he stands up. The pulse does not change appreciably. Weakness (Chronic) Acutely worse however. Persistent pneumonia (Chronic) GERD with esophagitis (Chronic) Prostatism (Chronic) He is getting up 3-4 times a night. He has urgency with urination but no dysuria. He does not void normal volumes as it seems to be smaller volume than usual. I expect he is not completely emptying his bladder. Emphysema with chronic bronchitis (Chronic) Chronic pain syndrome (Chronic) Hyperlipidemia (Chronic) Hypertension (Chronic) Low back pain (Chronic) There is occasional sciatica down the right leg. 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) AF (paroxysmal atrial fibrillation) Hummel palsy CHF (congestive heart failure) COPD (chronic obstructive pulmonary disease) Colonoscopy refused Constipation High cholesterol Hx-TIA (transient ischemic attack) Hypertension Injury of right common femoral artery Low back pain Parapneumonic effusion Pneumonia Severe aortic stenosis Shingles Surgical History (Last Reviewed 10/06/20 @ 13:07 by Bob Martines CRNA) H/O heart artery stent Heart valve replaced History of appendectomy S/P TAVR (transcatheter aortic valve replacement) H/O hemorrhoidectomy History of back surgery History of esophagogastroduodenoscopy (EGD) Onset Date: 03/17/19 03/17/19 Bagan-clotest negative, moderate benign reactive gastropathy/chemical gastritis. Hiatal hernia. Hx of hernia repair Family History (Last Reviewed 10/06/20 @ 13:07 by Bob Martines CRNA) Father Myocardial infarction - Family Anesthesia History Family History:: no untoward family reactions to anesthesia, no familial bleeding tendencies, no family history of clotting disorders, no family history of premature - Airway/Neck/Teeth Mallampatti Score: 3 Thyromental (T-M) distance: > 6 cm Mandibulo Hyoid distance: > 3 cm - Respiratory Respiratory History: COPD Respiratory Physical: decreased breath sounds, rhonchi Discussed smoking cessation including day of surgery: No Sleep Apnea currently treated: No Sleep Apnea by current assessment: No Discussed Risks/Treatment of ERIC: No - Cardiovascular Tolerate Activity: Poor Heart Sounds: S1 & S2, Regular - Gastrointestinal NPO since: mn - Anesthesia Assessment and Plan ASA Class: PS, IV, E Anesthesia Type Plan: Spinal
[2020-10-06] MEDS ORDERED: PROPOFOL VIAL IV ONE (13:12)
[2020-10-06] MEDS ORDERED: LIDOCAINE HCL 20 ML VIAL ONE (13:12)
[2020-10-06] MEDS ORDERED: PHENYLEPHRINE HCL 10 MG/ML AMPUL ONE (13:12)
[2020-10-06] MEDS ORDERED: ceFAZolin SODIUM 1 GM VIAL ONE (13:21)
[2020-10-06] MEDS ORDERED: RINGER'S SOLUTION,LACTATED 1,000 ML IV PRN (14:49)
--- NOTE | 2020-10-06 16:44 | PN ---
Subjective - Date and Time Seen Date: 10/06/20 Time: 16:36 Subjective Narrative: Patient resting comfortably in bed. He just came back from cancelled procedure and is sedated but arousable. Unable to answer questions at this time but has been comfortable throughout the day and conversant with staff. This morning his hemoglobin came back at 7.2, he was type and crossed for 2 units and received one prior to going back for surgery. His BPs have been soft throughout the night with majority of them being in the 90s systolically. They became unstable while being prepped for surgery and so the procedure was cancelled due to risk. I discussed this with the family just now who are no trying to decide between comfort care vs possible transfer to another facility who may be willing to do the procedure if the have the means to accomodate his risk factors. I told them that there may not be a place that would accept the risk but we could try if they wish. They want the night to think about it. Started his second unit of blood just now. Objective Objective Narrative: unable to obtain due to sedation - Vitals Vitals: Last Vital Signs Temp 36.8 C 10/06/20 16:15 Pulse 86 10/06/20 16:15 Resp 16 10/06/20 16:15 BP 126/57 10/06/20 16:15 Pulse Ox 93 10/06/20 16:15 - Abnormal Lab Findings Abnormal Lab Findings: Abnormal Lab Results 10/06/20 10/06/20 10/06/20 Range/Units 06:25 06:25 07:35 WBC 11.5 H D (4.0-10.5) K/mm3 RBC 2.57 L (4.7-6.0) M/mm3 Hgb 7.2 L* (13.5-18.0) gm/dL Hct 23.5 L* (42.0-52.0) % MCHC 30.6 L (32-36) g/dl RDW 14.6 H (11.5-14.0) % Lymphocytes % (Manual) 7 L (20-51) % Monocytes % (Manual) 16 H (0-9) % Neutrophils # (Manual) 8.6 H (1.3-6.0) K/mm3 Lymphocytes # (Manual) 0.8 L (1.5-3.5) k/mm3 Monocytes # (Manual) 1.8 H (0.0-1.0) k/mm3 Potassium 2.5 L (3.4-4.6) mmol/L Chloride 95 L (97-106) mmol/L Carbon Dioxide 34.9 H (24-32.6) mmol/L BUN 52 H (6-23) mg/dL Creatinine 2.29 H D (0.4-1.4) mg/dL Est GFR (Non-Af Amer) 29 L D (60-130) mL/min BUN/Creatinine Ratio 22.7 H (9.0-21.6) Random Glucose 125 H (70-110) mg/dL ALT 15 L (19-67) U/L Albumin 1.9 L (3.4-5.0) gm/dl Crossmatch See Detail - Exam Constitutional: Present: No distress, Somnolent, Elderly Respiratory: Present: no respiratory distress, decreased breath sounds - througout Cardiovascular/Chest: Present: no murmur, irregularly irregular Abdomen: Present: soft, nontender, nondistended Extremity: Present: no calf tenderness, normal capillary refill, leg pain - left LE pain with movement Skin Exam: Present: normal color, warm/dry Cauti Physician Documentation - Urinary Catheter Management Coude Date of Insertion: 10/05/20 Time of Insertion: 16:13 Assessment/Plan Plan Narrative: Patient's family wishes to keep patient here overnight whether discussed the options as far as treatment plans moving forward. Recommended comfort care due to his advanced age and chronic comorbidities but will do as the family desires. In the meantime he is receiving a second unit of blood currently and will repeat hemogram this evening. Holding Lasix at this time due to soft blood pressures but will monitor his fluid status as we do not want to overload him with a history of CHF. Repeat CBC in the morning. We will restart his other medications not related to his blood pressure issues. We will start him on a regular diet. We will continue Dilaudid 1 mg every 4 hours as needed for pain control at this time. If they wish to make patient comfort measures only then will restart his oral medicines for pain control. If they wish to transfer patient then will work on this tomorrow morning. Nurse is in agreement with treatment plan and is up-to-date on the proceedings. They will call with any questions or concerns. Family will notify me of any questions or concerns that they may have. - Problems/Diagnosis (1) Hip fracture Problem: Acute (2) Fall at home Problem: Acute Qualifiers: Encounter type: initial encounter Qualified Code(s): W19.XXXA - Unspecified fall, initial encounter; Y92.009 - Unspecified place in unspecified non- institutional (private) residence as the place of occurrence of the external cause (3) Chronic kidney disease, stage IV (severe) Problem: Chronic (4) Oxygen dependent Problem: Chronic (5) Anemia Problem: Acute (6) Leukocytosis Problem: Acute Qualifiers: Leukocytosis type: unspecified Qualified Code(s): D72.829 - Elevated white blood cell count, unspecified (7) History of CHF (congestive heart failure) Problem: Chronic (8) Atrial fibrillation Problem: Chronic (9) Walker as ambulation aid Problem: Chronic (10) Unstable gait Problem: Acute (11) Hypokalemia Problem: Acute (12) Weakness Problem: Chronic (13) 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
[2020-10-06] MEDS ORDERED: MAG HYDROX/ALUMINUM HYD/SIMETH 30 ML UDC PO PRN (17:09)
[2020-10-06] MEDS ORDERED: ONDANSETRON 4 MG TAB.RAPDIS PO PRN (17:09)
[2020-10-06] MEDS: SENNOSIDES/DOCUSATE SODIUM 1 TAB TABLET PO SCH (20:41)
[2020-10-06] MEDS: MELATONIN 3,000 MCG TABLET PO SCH (20:41)
[2020-10-06] MEDS: TAMSULOSIN HCL 0.4 MG CAP.SR.24H PO SCH (20:41)
[2020-10-07] MEDS: HYDROmorphone HCL 1 MG/ML DISP.SYRIN IV PRN ×4 (03:24→17:00)
[2020-10-07] MEDS ORDERED: ceFAZolin SODIUM 1 GM VIAL IV PRN (06:00)
[2020-10-07] MEDS: BUDESONIDE 0.25 MG/2 ML VIAL.NEB IH SCH ×2 (06:21→18:17)
[2020-10-07] MEDS: ALBUTEROL SULFATE/IPRATROPIUM 3 ML NEBU IH SCH ×2 (06:21→18:31)
[2020-10-07 07:17] LABS: Hematocrit 31.1 % (42.0-52.0); Hemoglobin 9.7 gm/dL (13.5-18.0); Mean Cell Volume 90.9 fl (78-100); Mean Corpuscular Hemoglobin 28.4 pg (27-31); Mean Corpuscular Hgb Conc 31.2 g/dl (32-36); Mean Platelet Volume 9.2 fl (8-11.3); Platelet Count 201 K/mm3 (150-450); Red Blood Count 3.42 M/mm3 (4.7-6.0); Red Cell Distribution Width 14.6 % (11.5-14.0); White Blood Count 14.9 K/mm3 (4.0-10.5)
[2020-10-07 07:21] LABS: Total Cells Counted 100
[2020-10-07] MEDS: SENNOSIDES/DOCUSATE SODIUM 1 TAB TABLET PO SCH ×2 (08:28→20:12)
[2020-10-07] MEDS: PANTOPRAZOLE SODIUM 40 MG in NORMAL SALINE 100 ML IV SCH (08:42)
[2020-10-07 09:03] LABS: Atypical (Reactive) Lymph 1 % (0-2); Eosinophil 1 % (0-3); Lymphocyte 11 % (20-51); Monocyte 12 % (0-9); Neutrophil 75 % (42-75); Neutrophil # 11.2 K/mm3 (1.3-6.0)
[2020-10-07 09:04] LABS: Platelet Estimate Normal (NORMAL)
[2020-10-07 09:05] LABS: Hypochromia 1+; Polychromasia Trace
[2020-10-07 09:06] LABS: Hypersegmented Polys Trace
[2020-10-07 09:42] LABS: Albumin * 1.9 gm/dl (3.4-5.0); Anion Gap 9.2 mmol/L (6.8-13.8); BUN/Creatinine Ratio 23.2 (9.0-21.6); Bilirubin, Total 0.8 mg/dL (0.0-1.1); Ca. Corrected For Albumin 9.7 mg/dL (8.4-10.2); Calcium * 8.3 mg/dL (7.9-10.9); Carbon Dioxide 34.6 mmol/L (24-32.6); Potassium 2.8 mmol/L (3.4-4.6)
[2020-10-07] MEDS ORDERED: METOPROLOL TARTRATE 1 MG/ML AMPUL IV ONE (14:29)
[2020-10-07] MEDS: ACETAMINOPHEN 325 MG TABLET PO PRN (16:59)
[2020-10-07] MEDS: POTASSIUM CHLORIDE 20 MEQ TABLET.SA PO SCH (16:59)
[2020-10-07] MEDS: METOPROLOL TARTRATE 25 MG TABLET PO SCH (16:59)
--- NOTE | 2020-10-07 17:16 | PN ---
Subjective - Date and Time Seen Date: 10/07/20 Time: 16:45 Subjective Narrative: Patient is comfortable in his bed at this time though his pain has been elevated as he is not requesting his pain medicine as often as he should. Discussed this with the nurse so she will check on him every 4 hours to make sure he is comfortable but do not want to schedule Dilaudid every 4 hours if is not needed. Patient really only hurts when he forgets about his hip and tries to move his lower extremity. Patient with headache, likely from the narcotics. Will order Tylenol. Patient also is hemodynamically stable with better blood pressures today but his heart rate is also been elevated. He was not on any antiarrhythmic medications he came in but I think it would be better to control this over the course the next 2 days and see how his blood pressure does on the metoprolol and to keep him in a better rate. He fluctuates from the 80s up into the 120s and 130s. Most the time though he is under 100. Aside from his hip pain, patient has no other concerns. Objective - Review of Systems Generalized/Overall Review: Reports: Weakness EENTM: Reports: No Symptoms Reported Respiratory: Reports: Shortness of Breath - Chronic. Denies: Cough Cardiac: Denies: Chest Pain, Edema Abdominal: Denies: Nausea, Vomiting, Abdominal Pain Genitourinary Symptoms: Reports: No Symptoms Reported Musculoskeletal Complaints: Reports: Joint Pain - Left hip Neurological: Reports: No Symptoms Reported Skin: Reports: No Symptoms Reported Endocrine: Reports: No Symptoms Reported - Vitals Vitals: Last Vital Signs Temp 36.8 C 10/07/20 14:16 Pulse 86 10/07/20 15:47 Resp 19 10/07/20 14:16 BP 117/63 10/07/20 15:17 Pulse Ox 95 10/07/20 14:16 - Abnormal Lab Findings Abnormal Lab Findings: Abnormal Lab Results 10/06/20 10/07/20 10/07/20 Range/Units 07:35 07:05 07:05 WBC 14.9 H D (4.0-10.5) K/mm3 RBC 3.42 L (4.7-6.0) M/mm3 Hgb 9.7 L (13.5-18.0) gm/dL Hct 31.1 L (42.0-52.0) % MCHC 31.2 L (32-36) g/dl RDW 14.6 H (11.5-14.0) % Lymphocytes % (Manual) 11 L (20-51) % Monocytes % (Manual) 12 H (0-9) % Neutrophils # (Manual) 11.2 H (1.3-6.0) K/mm3 Monocytes # (Manual) 1.8 H (0.0-1.0) k/mm3 Potassium 2.8 L (3.4-4.6) mmol/L Carbon Dioxide 34.6 H (24-32.6) mmol/L BUN 38 H (6-23) mg/dL Creatinine 1.64 H D (0.4-1.4) mg/dL Est GFR (Non-Af Amer) 42 L D (60-130) mL/min BUN/Creatinine Ratio 23.2 H (9.0-21.6) Random Glucose 111 H (70-110) mg/dL ALT 13 L (19-67) U/L Total Protein 6.0 L (6.2-8.2) gm/dL Albumin 1.9 L (3.4-5.0) gm/dl Crossmatch See Detail - Exam Constitutional: Present: Alert, Oriented x3, Elderly ENT Exam: Present: hard of hearing Respiratory: Present: no respiratory distress, decreased breath sounds Cardiovascular/Chest: Present: no murmur, tachycardia, irregularly irregular Abdomen: Present: soft, nontender, nondistended Extremity: Present: leg pain - LLE-Mildly shortened and internally rotated, normal sensation, normal cap refill Skin Exam: Present: normal color, warm/dry Appearance: Present: appropriate appearance, impaired insight Eye contact: Present: cooperative, good eye contact Thoughts: Present: normal thought pattern, normal mood /affect Cauti Physician Documentation - Urinary Catheter Management Coude Date of Insertion: 10/05/20 Time of Insertion: 16:13 Assessment/Plan Plan Narrative: Patient resting comfortably as he just received a dose of pain medicine. Patient will stay with us over the weekend as we monitor his blood pressure to see if we can try to repeat the procedure that was canceled yesterday for his left hip intertrochanteric fracture due to low blood pressures. Currently blood pressures have been in the 120s over 70s. Pain is well controlled on Dilaudid 1 mg every 4 hours, nurse to check on him more often to make sure he is comfortable. Patient forgets to ask for it until his pain is much worse. Patient's heart rate has been labile ranging from the 70s up to the 120s. Patient previously not on any antiarrhythmic medication. Patient was given 5 mg Lopressor which she responded well to and I did not drop his blood pressure much but stabilized his heart rate. We will start him on 25 mg metoprolol tartrate twice daily. May need to hold this Saturday if his pressures are lower so as not to decrease his chances of getting surgery Saturday with Dr. Georges. Creatinine and GFR back to baseline. Patient saline locked. Patient has regular diet. Repeat CBC and BMP in the morning. If hemoglobin drops then patient will need to be transfused 1 more unit prior to his surgery to improve odds of being able to have it done. Discussed in detail with family today that there is a chance he may not build to have this will have to make him comfort measures or try to transfer him to another facility with ICU due to his serious chronic medical issues on top of his hip fracture. Currently breathing is stable, on 4 L nasal cannula which is what he uses daily at the halfway. History of end-stage COPD and emphysema. Currently not coughing and breathing well. No signs of respiratory distress at all. Otherwise continue current treatment plan. Nurse to call questions or concerns. 1.25-hour spent with the patient today, 7 the patient's family discussing outcomes and options, discussing case with orthopedic surgeon, change in treatment plan, ordering labs, dictating note. - Problems/Diagnosis (1) Hip fracture Problem: Acute (2) Fall at home Problem: Acute Qualifiers: Encounter type: initial encounter Qualified Code(s): W19.XXXA - Unspecified fall, initial encounter; Y92.009 - Unspecified place in unspecified non- institutional (private) residence as the place of occurrence of the external cause (3) Chronic kidney disease, stage IV (severe) Problem: Chronic (4) Oxygen dependent Problem: Chronic (5) Anemia Problem: Acute (6) Leukocytosis Problem: Acute Qualifiers: Leukocytosis type: unspecified Qualified Code(s): D72.829 - Elevated white blood cell count, unspecified (7) History of CHF (congestive heart failure) Problem: Chronic (8) Atrial fibrillation Problem: Chronic (9) Walker as ambulation aid Problem: Chronic (10) Unstable gait Problem: Acute (11) Hypokalemia Problem: Acute (12) Weakness Problem: Chronic (13) 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
[2020-10-07] MEDS: ALBUTEROL SULFATE 2.5 MG/3 ML VIAL.NEB IH PRN (18:17)
[2020-10-07] MEDS: MELATONIN 3,000 MCG TABLET PO SCH (20:11)
[2020-10-07] MEDS: TAMSULOSIN HCL 0.4 MG CAP.SR.24H PO SCH (20:12)
[2020-10-08] MEDS: HYDROmorphone HCL 1 MG/ML DISP.SYRIN IV PRN ×7 (00:19→23:40)
[2020-10-08] MEDS: METOPROLOL TARTRATE 25 MG TABLET PO SCH ×2 (05:29→17:03)
[2020-10-08] MEDS: ALBUTEROL SULFATE/IPRATROPIUM 3 ML NEBU IH SCH ×3 (05:56→18:17)
[2020-10-08] MEDS: BUDESONIDE 0.25 MG/2 ML VIAL.NEB IH SCH ×3 (05:57→18:17)
[2020-10-08 06:46] LABS: Hematocrit 31.9 % (42.0-52.0); Hemoglobin 9.8 gm/dL (13.5-18.0); Mean Cell Volume 91.7 fl (78-100); Mean Corpuscular Hemoglobin 28.2 pg (27-31); Mean Corpuscular Hgb Conc 30.7 g/dl (32-36); Mean Platelet Volume 9.2 fl (8-11.3); Neutrophil # 10.7 K/mm3 (1.3-6.0); Neutrophil % 77.3 % (42-75.0); Platelet Count 226 K/mm3 (150-450); Red Blood Count 3.48 M/mm3 (4.7-6.0); Red Cell Distribution Width 14.9 % (11.5-14.0); White Blood Count 13.8 K/mm3 (4.0-10.5)
[2020-10-08 06:50] LABS: Total Cells Counted 100
[2020-10-08 07:16] LABS: Anion Gap 10.5 mmol/L (6.8-13.8); BUN/Creatinine Ratio 21.6 (9.0-21.6); Calcium * 8.6 mg/dL (7.9-10.9); Carbon Dioxide 31.5 mmol/L (24-32.6); Estimated Creat Clear 30.9
[2020-10-08 07:31] LABS: Eosinophil 2 % (0-3); Lymphocyte 2 % (20-51); Monocyte 10 % (0-9); Neutrophil 86 % (42-75); Neutrophil # 11.9 K/mm3 (1.3-6.0); Platelet Estimate Normal (NORMAL)
[2020-10-08 07:32] LABS: Hypochromia 1+
[2020-10-08 07:33] LABS: Anisocytosis Trace; Microcytosis Trace
[2020-10-08] MEDS: SENNOSIDES/DOCUSATE SODIUM 1 TAB TABLET PO SCH ×2 (09:01→20:22)
[2020-10-08] MEDS: POTASSIUM CHLORIDE 20 MEQ TABLET.SA PO SCH ×2 (09:01→17:03)
[2020-10-08] MEDS: PANTOPRAZOLE SODIUM 40 MG in NORMAL SALINE 100 ML IV SCH (09:02)
[2020-10-08] MEDS ORDERED: METOPROLOL TARTRATE 25 MG TABLET PO SCH (12:40)
--- NOTE | 2020-10-08 12:46 | PN ---
Subjective - Date and Time Seen Date: 10/08/20 Time: 09:45 Subjective Narrative: He is still having pain, but feels like the dilaudid helps when he gets it. His oxygen came off overnight and his oxygen decreased to 78%, but recovered when the oxygen was replaced. VRE screen was positive. Objective - Vitals Vitals: Last Vital Signs Temp 36.2 C 10/08/20 10:00 Pulse 80 10/08/20 10:00 Resp 15 10/08/20 10:00 BP 95/42 10/08/20 10:00 Pulse Ox 100 10/08/20 10:00 - Abnormal Lab Findings Abnormal Lab Findings: Abnormal Lab Results 10/08/20 10/08/20 Range/Units 06:25 06:25 WBC 13.8 H (4.0-10.5) K/mm3 RBC 3.48 L (4.7-6.0) M/mm3 Hgb 9.8 L (13.5-18.0) gm/dL Hct 31.9 L (42.0-52.0) % MCHC 30.7 L (32-36) g/dl RDW 14.9 H (11.5-14.0) % Immature Gran % (Auto) 1.20 H (0.001-0.429) % Immature Gran # (Auto) 0.17 H (0.000-0.0310) K/mm3 Neutrophils % 77.3 H (42-75.0) % Neutrophils % (Manual) 86 H (42-75) % Lymphocytes % 5.4 L (20-51) % Lymphocytes % (Manual) 2 L (20-51) % Monocytes % 13.8 H (0.0-9) % Monocytes % (Manual) 10 H (0-9) % Neutrophils # 10.7 H (1.3-6.0) K/mm3 Neutrophils # (Manual) 11.9 H (1.3-6.0) K/mm3 Lymphocytes # 0.75 L (1.5-3.5) k/mm3 Lymphocytes # (Manual) 0.3 L (1.5-3.5) k/mm3 Monocytes # 1.9 H (0.0-1.0) k/mm3 Monocytes # (Manual) 1.4 H (0.0-1.0) k/mm3 Potassium 3.0 L (3.4-4.6) mmol/L BUN 35 H (6-23) mg/dL Creatinine 1.62 H (0.4-1.4) mg/dL Est GFR (Non-Af Amer) 43 L (60-130) mL/min Cauti Physician Documentation - Urinary Catheter Management Coude Date of Insertion: 10/05/20 Time of Insertion: 16:13 Assessment/Plan Plan Narrative: Prior to this admission, he was receiving hospice benefits for end stage COPD. Hospice was revoked to repair his hip. Patient verifies today that he does not to undergo surgery. Discussed with him that he is high risk, and he wishes to proceed. - Problems/Diagnosis (1) Fracture, intertrochanteric, left femur Problem: Acute Qualifiers: Encounter type: initial encounter Fracture type: closed Fracture alignment: nondisplaced Qualified Code(s): S72.145A - Nondisplaced intertrochanteric fracture of left femur, initial encounter for closed fracture Narrative: He went to the OR on 10/06 for surgical repair, but BP decreased to 70's/40's, so the procedure was cancelled and tentatively scheduled for Saturday. He is aware he is high risk, but reports he is in too much pain to move, so he wants his hip repaired. (2) Hypotension Problem: Acute Qualifiers: Hypotension type: hypotension due to drug Qualified Code(s): I95.2 - Hypotension due to drugs Narrative: Will reduce metoprolol dose from 25 mg to 12.5 mg. (3) Atrial fibrillation Problem: Chronic Qualifiers: Atrial fibrillation type: paroxysmal Qualified Code(s): I48.0 - Paroxysmal atrial fibrillation Narrative: HR has been fluctuating. He'd not been on rate control or anticoagulation because he was hospice. 25 mg metoprolol started yesterday, after his HR was in the 120's and 130's. HR has since been in the 80's and 90's, and BP this morning was 95/42. He will not be able to undergo surgery with BP this low, so will reduce his metoprolol dose to 12.5 bid. (4) Severe chronic obstructive pulmonary disease Problem: Chronic Narrative: Continue duonebs, albuterol. 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 (10) Hyperlipidemia Problem: Chronic Qualifiers: (11) Hypertension Problem: Chronic Qualifiers:
[2020-10-08] MEDS: MELATONIN 3,000 MCG TABLET PO SCH (20:22)
[2020-10-08] MEDS: TAMSULOSIN HCL 0.4 MG CAP.SR.24H PO SCH (20:22)
[2020-10-09] MEDS: HYDROmorphone HCL 1 MG/ML DISP.SYRIN IV PRN ×4 (04:22→21:15)
[2020-10-09] MEDS: METOPROLOL TARTRATE 25 MG TABLET PO SCH ×3 (05:29→16:41)
[2020-10-09] MEDS: ALBUTEROL SULFATE 2.5 MG/3 ML VIAL.NEB IH PRN (06:06)
[2020-10-09] MEDS: BUDESONIDE 0.25 MG/2 ML VIAL.NEB IH SCH ×2 (06:06→18:06)
[2020-10-09] MEDS: ALBUTEROL SULFATE/IPRATROPIUM 3 ML NEBU IH SCH ×2 (06:26→18:06)
[2020-10-09 07:24] LABS: Hematocrit 31.5 % (42.0-52.0); Hemoglobin 9.8 gm/dL (13.5-18.0); Mean Cell Volume 91.8 fl (78-100); Mean Corpuscular Hemoglobin 28.6 pg (27-31); Mean Corpuscular Hgb Conc 31.1 g/dl (32-36); Mean Platelet Volume 8.6 fl (8-11.3); Platelet Count 196 K/mm3 (150-450); Red Blood Count 3.43 M/mm3 (4.7-6.0); Red Cell Distribution Width 14.7 % (11.5-14.0); White Blood Count 12.3 K/mm3 (4.0-10.5)
[2020-10-09 07:27] LABS: Total Cells Counted 100
[2020-10-09 08:03] LABS: Atypical (Reactive) Lymph 2 % (0-2); Band 1 % (0-2.0); Eosinophil 6 % (0-3); Hypochromia 1+; Lymphocyte 5 % (20-51); Monocyte 17 % (0-9); Neutrophil 69 % (42-75); Neutrophil # 8.5 K/mm3 (1.3-6.0); Platelet Estimate Normal (NORMAL)
[2020-10-09 08:05] LABS: Anisocytosis Trace; Microcytosis Trace
[2020-10-09 08:38] LABS: Albumin * 1.7 gm/dl (3.4-5.0); Anion Gap 6.8 mmol/L (6.8-13.8); BUN/Creatinine Ratio 24.4 (9.0-21.6); Bilirubin, Total 0.5 mg/dL (0.0-1.1); Ca. Corrected For Albumin 9.5 mg/dL (8.4-10.2); Carbon Dioxide 35.9 mmol/L (24-32.6); Potassium 3.7 mmol/L (3.4-4.6); Total Protein 5.4 gm/dL (6.2-8.2)
[2020-10-09] MEDS: PANTOPRAZOLE SODIUM 40 MG in NORMAL SALINE 100 ML IV SCH (09:35)
[2020-10-09] MEDS: ACETAMINOPHEN 325 MG TABLET PO PRN ×2 (09:44→20:08)
[2020-10-09] MEDS: SENNOSIDES/DOCUSATE SODIUM 1 TAB TABLET PO SCH ×2 (09:44→20:10)
[2020-10-09] MEDS: POTASSIUM CHLORIDE 20 MEQ TABLET.SA PO SCH ×2 (09:44→16:28)
--- NOTE | 2020-10-09 11:47 | PN ---
Subjective - Date and Time Seen Date: 10/09/20 Time: 09:25 Subjective Narrative: He has not had a BM in a few days per nursing. He wakens for my exam, and expresses a desire to go home. Is unhappy with breakfast, and hurts all over. Objective - Review of Systems Generalized/Overall Review: Reports: Weakness Cardiac: Denies: Chest Pain, Edema Abdominal: Reports: Constipation Genitourinary Symptoms: Reports: Other - hall in place Musculoskeletal Complaints: Reports: Joint Pain - left hip - Vitals Vitals: Last Vital Signs Temp 36.6 C 10/09/20 10:32 Pulse 92 10/09/20 10:32 Resp 16 10/09/20 10:32 BP 113/42 10/09/20 10:32 Pulse Ox 100 10/09/20 10:32 - Abnormal Lab Findings Abnormal Lab Findings: Abnormal Lab Results 10/09/20 10/09/20 Range/Units 07:18 07:18 WBC 12.3 H (4.0-10.5) K/mm3 RBC 3.43 L (4.7-6.0) M/mm3 Hgb 9.8 L (13.5-18.0) gm/dL Hct 31.5 L (42.0-52.0) % MCHC 31.1 L (32-36) g/dl RDW 14.7 H (11.5-14.0) % Lymphocytes % (Manual) 5 L (20-51) % Monocytes % (Manual) 17 H (0-9) % Eosinophils % (Manual) 6 H (0-3) % Neutrophils # (Manual) 8.5 H (1.3-6.0) K/mm3 Lymphocytes # (Manual) 0.6 L (1.5-3.5) k/mm3 Monocytes # (Manual) 2.1 H (0.0-1.0) k/mm3 Carbon Dioxide 35.9 H (24-32.6) mmol/L BUN 31 H (6-23) mg/dL Est GFR (Non-Af Amer) 57 L D (60-130) mL/min BUN/Creatinine Ratio 24.4 H (9.0-21.6) ALT 10 L (19-67) U/L Total Protein 5.4 L (6.2-8.2) gm/dL Albumin 1.7 L (3.4-5.0) gm/dl - Exam Constitutional: Present: Other - wakens for exam, Elderly, Thin and frail Respiratory: Present: normal breath sounds Cardiovascular/Chest: Present: regular rate, rhythm Abdomen: Present: soft, other - hall in place Extremity: Absent: lower extremity edema Skin Exam: Present: other - petechiae of chest Eye contact: Present: good eye contact Cauti Physician Documentation - Urinary Catheter Management Coude Date of Insertion: 10/05/20 Time of Insertion: 16:13 Assessment/Plan - Problems/Diagnosis (1) Fracture, intertrochanteric, left femur Problem: Acute Qualifiers: Encounter type: initial encounter Fracture type: closed Fracture alignment: nondisplaced Qualified Code(s): S72.145A - Nondisplaced intertrochanteric fracture of left femur, initial encounter for closed fracture Narrative: Surgical repair attempted on 10/06, but his BP decreased so it was postponed and rescheduled to tomorrow. He wants to follow through with the surgery, because he can not move without it. He's been getting dilaudid for pain control, but BP decreases a bit after its administration. He is allergic to morphine. His grand daughter is wondering if the pain med could be held prior to his surgery, to avoid hypotension. (2) Hypotension Problem: Acute Qualifiers: Hypotension type: hypotension due to drug Qualified Code(s): I95.2 - Hypotension due to drugs (3) Atrial fibrillation Problem: Chronic Qualifiers: Atrial fibrillation type: paroxysmal Qualified Code(s): I48.0 - Paroxysmal atrial fibrillation Narrative: HR has been controlled, and BP hasn't been as low on the 12.5 mg metoprolol. Not anticoagulated since he'll be going to surgery tomorrow. (4) Severe chronic obstructive pulmonary disease Problem: Chronic Narrative: Patient was receiving hospice benefits for his COPD until he broke his hip. Hospice revoked for surgical repair. (5) Hypoxemia requiring supplemental oxygen Problem: Chronic Narrative: due to COPD (6) Chronic low back pain Problem: Chronic Qualifiers: Back pain laterality: midline Sciatica presence: with sciatica Sciatica laterality: sciatica of right side Qualified Code(s): M54.41 - Lumbago with sciatica, right side; G89.29 - Other chronic pain (7) Chronic kidney disease, stage IV (severe) Problem: Chronic Narrative: Creatinine improved to 1.27, GFR improved to 57. 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 (10) Acute blood loss anemia Problem: Acute (11) Constipation Problem: Acute Narrative: will add miralax to the senna. (12) Hypokalemia Problem: Acute Narrative: Improved. potassium was 3.7 today, up from 3.0. (13) Hypertension Problem: Chronic Qualifiers: (14) Anemia Problem: Acute Narrative: Possible from his hip fracture. Hgb stayed at 9.8 today. (15) Hyperlipidemia Problem: Chronic Qualifiers:
[2020-10-09] MEDS: POLYETHYLENE GLYCOL 3350 17 GM PACKET PO SCH (12:06)
[2020-10-09] MEDS: TAMSULOSIN HCL 0.4 MG CAP.SR.24H PO SCH (20:09)
[2020-10-09] MEDS: MELATONIN 3,000 MCG TABLET PO SCH (20:09)
[2020-10-10] MEDS: METOPROLOL TARTRATE 25 MG TABLET PO SCH ×3 (04:40→16:47)
[2020-10-10] MEDS: ALBUTEROL SULFATE/IPRATROPIUM 3 ML NEBU IH SCH ×3 (06:24→18:07)
[2020-10-10] MEDS: BUDESONIDE 0.25 MG/2 ML VIAL.NEB IH SCH ×3 (06:24→18:07)
[2020-10-10 06:26] LABS: Hematocrit 34.3 % (42.0-52.0); Hemoglobin 10.5 gm/dL (13.5-18.0); Mean Cell Volume 91.2 fl (78-100); Mean Corpuscular Hemoglobin 27.9 pg (27-31); Mean Corpuscular Hgb Conc 30.6 g/dl (32-36); Platelet Count 227 K/mm3 (150-450); Red Blood Count 3.76 M/mm3 (4.7-6.0); Red Cell Distribution Width 14.6 % (11.5-14.0)
[2020-10-10 06:40] LABS: Albumin * 1.8 gm/dl (3.4-5.0); Anion Gap 7.6 mmol/L (6.8-13.8); BUN/Creatinine Ratio 24.3 (9.0-21.6); Bilirubin, Total 0.5 mg/dL (0.0-1.1); Ca. Corrected For Albumin 9.9 mg/dL (8.4-10.2); Calcium * 8.5 mg/dL (7.9-10.9); Carbon Dioxide 33.3 mmol/L (24-32.6); Potassium 3.9 mmol/L (3.4-4.6); Total Protein 6.2 gm/dL (6.2-8.2)
[2020-10-10 06:41] LABS: Total Cells Counted 100
[2020-10-10 07:11] LABS: Band 3 % (0-2.0); Eosinophil 4 % (0-3); Immature Granulocyte 1 (0-1); Lymphocyte 5 % (20-51); Monocyte 13 % (0-9); Neutrophil 74 % (42-75); Neutrophil # 10.4 K/mm3 (1.3-6.0)
[2020-10-10 07:12] LABS: Hypersegmented Polys Trace; Platelet Estimate Normal (NORMAL)
[2020-10-10 07:13] LABS: Basophilic Stippling Trace; Hypochromia 1+; Polychromasia Trace
[2020-10-10] MEDS: HYDROmorphone HCL 1 MG/ML DISP.SYRIN IV PRN ×3 (09:18→16:45)
[2020-10-10] MEDS: POTASSIUM CHLORIDE 20 MEQ TABLET.SA PO SCH ×2 (09:18→16:44)
[2020-10-10] MEDS: SENNOSIDES/DOCUSATE SODIUM 1 TAB TABLET PO SCH ×3 (09:18→21:20)
[2020-10-10] MEDS: POLYETHYLENE GLYCOL 3350 17 GM PACKET PO SCH ×2 (09:18→13:51)
[2020-10-10] MEDS: PANTOPRAZOLE SODIUM 40 MG in NORMAL SALINE 100 ML IV SCH (09:20)
--- NOTE | 2020-10-10 10:35 | ANES ---
Anesthesia Procedure Note Procedure Note: Anesthesia Pre Procedure Evaluation DATE: 10/10/2020. TIME: 1026 INDICATIONS: Left intertrochanteric femur fracture. PAST MEDICAL HISTORY: Is a 89-year-old male who was admitted with a left intertrochanteric femur fracture. Anesthesia was attempted for surgical correction with decrease in blood pressure at the initial onset of anesthesia. Patient's renal function has improved since his admission as well as correction of his potassium. Patient remains on oxygen per nasal cannula. Should surgical correction of his femur fracture be attempted I recommend intraoperative continuous blood pressure monitoring as well as 5-lead EKG monitoring both intraoperatively and close SCU or ICU monitoring postoperatively due to the patient's history of aortic stenosis and congestive heart failure with atrial fibrillation and history of TIAs. If the hospital is unable to provide SCU coverage then I recommend transferring patient to a institution that can provide this service. EXAM: Current vital signs and laboratory values were reviewed. ASSESSMENT OF MEDICAL STATUS: O.K. to proceed with anesthesia for left intertrochanteric femur repair with transfer from operating room to the ICU unit. PLANNED PROCEDURE: Surgical repair of left intertrochanteric femur fracture with SCU postoperative care.
--- NOTE | 2020-10-10 12:58 | PN ---
Subjective - Date and Time Seen Date: 10/10/20 Time: 12:55 Subjective Narrative: Patient is resting comfortable in his room at this time. Patient's pain fairly well controlled with the decrease in time between pain medication dosing. Patient vital signs are more stable and his potassium has corrected. Patient's kidney function also much improved. Objective - Review of Systems Generalized/Overall Review: Reports: Weakness EENTM: Reports: No Symptoms Reported Respiratory: Reports: No Symptoms Reported Cardiac: Reports: No Symptoms Reported Abdominal: Reports: No Symptoms Reported Genitourinary Symptoms: Reports: No Symptoms Reported Musculoskeletal Complaints: Reports: Joint Pain Neurological: Reports: No Symptoms Reported Skin: Reports: No Symptoms Reported Endocrine: Reports: No Symptoms Reported - Vitals Vitals: Last Vital Signs Temp 36.4 C 10/10/20 07:22 Pulse 111 H 10/10/20 09:23 Resp 19 10/10/20 07:22 BP 111/58 10/10/20 07:22 Pulse Ox 97 10/10/20 07:22 - Abnormal Lab Findings Abnormal Lab Findings: Abnormal Lab Results 10/10/20 10/10/20 Range/Units 06:22 06:22 WBC 14.0 H (4.0-10.5) K/mm3 RBC 3.76 L (4.7-6.0) M/mm3 Hgb 10.5 L (13.5-18.0) gm/dL Hct 34.3 L (42.0-52.0) % MCHC 30.6 L (32-36) g/dl RDW 14.6 H (11.5-14.0) % Band Neuts % (Manual) 3 H (0-2.0) % Lymphocytes % (Manual) 5 L (20-51) % Monocytes % (Manual) 13 H (0-9) % Eosinophils % (Manual) 4 H (0-3) % Neutrophils # (Manual) 10.4 H (1.3-6.0) K/mm3 Lymphocytes # (Manual) 0.7 L (1.5-3.5) k/mm3 Monocytes # (Manual) 1.8 H (0.0-1.0) k/mm3 Carbon Dioxide 33.3 H (24-32.6) mmol/L BUN 28 H (6-23) mg/dL BUN/Creatinine Ratio 24.3 H (9.0-21.6) Random Glucose 111 H (70-110) mg/dL ALT 9 L (19-67) U/L Albumin 1.8 L (3.4-5.0) gm/dl - Exam Constitutional: Present: Alert, Oriented x3, Cooperative, Elderly ENT Exam: Present: hard of hearing Respiratory: Present: no respiratory distress, decreased breath sounds Cardiovascular/Chest: Present: no murmur, irregularly irregular Abdomen: Present: soft, nontender, nondistended Skin Exam: Present: normal color, warm/dry Appearance: Present: appropriate appearance, impaired insight Eye contact: Present: cooperative, good eye contact Thoughts: Present: normal thought pattern, normal mood /affect Cauti Physician Documentation - Urinary Catheter Management Coude Date of Insertion: 10/05/20 Time of Insertion: 16:13 Assessment/Plan Plan Narrative: Discussed case with patient's family as he is high risk and it is not something that wants for temperature due to no ICU over watch. Patient will need continuous blood pressure monitoring and 5-lead heart monitoring while under surgery. Recommended by surgical team for transfer to higher level care facility if family wishes to proceed with this procedure. Family is now determining whether or not to go comfort measures route versus transfer. Family was called and discussed in detail with this and will meet tonight and we will make a determination tomorrow with what the next step of care is. Patient is currently comfortable and so we will continue current treatment plan without any changes. Patient will be allowed to eat. No changes otherwise made. Nurses will call questions or concerns. - Problems/Diagnosis (1) Hip fracture Problem: Acute (2) Fall at home Problem: Acute Qualifiers: Encounter type: initial encounter Qualified Code(s): W19.XXXA - Unspecified fall, initial encounter; Y92.009 - Unspecified place in unspecified non- institutional (private) residence as the place of occurrence of the external cause (3) Chronic kidney disease, stage IV (severe) Problem: Chronic (4) Oxygen dependent Problem: Chronic (5) Anemia Problem: Acute (6) Leukocytosis Problem: Acute Qualifiers: Leukocytosis type: unspecified Qualified Code(s): D72.829 - Elevated white blood cell count, unspecified (7) History of CHF (congestive heart failure) Problem: Chronic (8) Atrial fibrillation Problem: Chronic (9) Walker as ambulation aid Problem: Chronic (10) Unstable gait Problem: Acute (11) Hypokalemia Problem: Acute (12) Weakness Problem: Chronic (13) 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
[2020-10-10] MEDS: ACETAMINOPHEN 325 MG TABLET PO PRN (15:45)
[2020-10-10] MEDS: TAMSULOSIN HCL 0.4 MG CAP.SR.24H PO SCH (21:19)
[2020-10-10] MEDS: MELATONIN 3,000 MCG TABLET PO SCH (21:20)
[2020-10-11] MEDS: HYDROmorphone HCL 1 MG/ML DISP.SYRIN IV PRN ×2 (05:09→08:26)
[2020-10-11] MEDS: METOPROLOL TARTRATE 25 MG TABLET PO SCH (05:10)
[2020-10-11] MEDS: BUDESONIDE 0.25 MG/2 ML VIAL.NEB IH SCH (06:07)
[2020-10-11] MEDS: ALBUTEROL SULFATE/IPRATROPIUM 3 ML NEBU IH SCH (06:07)
[2020-10-11 06:34] LABS: Hematocrit 36.9 % (42.0-52.0); Hemoglobin 11.3 gm/dL (13.5-18.0); Mean Cell Volume 91.1 fl (78-100); Mean Corpuscular Hemoglobin 27.9 pg (27-31); Mean Corpuscular Hgb Conc 30.6 g/dl (32-36); Platelet Count 244 K/mm3 (150-450); Red Blood Count 4.05 M/mm3 (4.7-6.0); Red Cell Distribution Width 14.6 % (11.5-14.0); White Blood Count 14.7 K/mm3 (4.0-10.5)
[2020-10-11 06:36] LABS: Total Cells Counted 100
[2020-10-11 06:49] LABS: Albumin * 1.9 gm/dl (3.4-5.0); Anion Gap 10.9 mmol/L (6.8-13.8); Bilirubin, Total 0.9 mg/dL (0.0-1.1); Ca. Corrected For Albumin 10.1 mg/dL (8.4-10.2); Calcium * 8.7 mg/dL (7.9-10.9); Carbon Dioxide 30.3 mmol/L (24-32.6); Potassium 4.2 mmol/L (3.4-4.6); Total Protein 6.6 gm/dL (6.2-8.2)
[2020-10-11 07:11] LABS: Band 1 % (0-2.0); Eosinophil 4 % (0-3); Lymphocyte 9 % (20-51); Monocyte 14 % (0-9); Neutrophil 72 % (42-75); Neutrophil # 10.6 K/mm3 (1.3-6.0)
[2020-10-11 07:12] LABS: Hypersegmented Polys Trace; Hypochromia 1+; Platelet Estimate Normal (NORMAL)
[2020-10-11 07:13] LABS: Polychromasia Trace
[2020-10-11] MEDS: POLYETHYLENE GLYCOL 3350 17 GM PACKET PO SCH (08:35)
[2020-10-11] MEDS: POTASSIUM CHLORIDE 20 MEQ TABLET.SA PO SCH (08:35)
[2020-10-11] MEDS: PANTOPRAZOLE SODIUM 40 MG in NORMAL SALINE 100 ML IV SCH (08:37)
[2020-10-11] MEDS: SENNOSIDES/DOCUSATE SODIUM 1 TAB TABLET PO SCH (09:20)
--- NOTE | 2020-10-11 12:01 | DS ---
(1) Hip fracture Problem: Acute (2) Fall at home Problem: Acute Qualifiers: Encounter type: initial encounter Qualified Code(s): W19.XXXA - Unspecified fall, initial encounter; Y92.009 - Unspecified place in unspecified non- institutional (private) residence as the place of occurrence of the external cause (3) Chronic kidney disease, stage IV (severe) Problem: Chronic (4) Oxygen dependent Problem: Chronic (5) Anemia Problem: Acute (6) Leukocytosis Problem: Acute Qualifiers: Leukocytosis type: unspecified Qualified Code(s): D72.829 - Elevated white blood cell count, unspecified (7) History of CHF (congestive heart failure) Problem: Chronic (8) Atrial fibrillation Problem: Chronic (9) Walker as ambulation aid Problem: Chronic (10) Unstable gait Problem: Acute (11) Hypokalemia Problem: Acute (12) Weakness Problem: Chronic (13) 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 Lundberg is an 89-year-old gentleman who was previous hospice care for end-stage COPD and emphysema on 4 L of oxygen continually who was admitted to the hospital after ground-level fall which resulted in a left intertrochanteric femur fracture. Hospice was revoked to try and undergo the procedure but patient was deemed to be too high risk and family did not wish to transfer him to higher level of care facility due to the fact that the admitting team would likely feel the same way regarding his chronic lung disease, chronic kidney disease, history of aortic stenosis, mild dementia. Patient and family made up their mind today to go hospice care again for both his end-stage COPD as well as for this left femur fracture. Patient will require indwelling Marquez with his hospice care, will be started on p.o. Dilaudid at 2 mg every 4 hours scheduled as well as having oxycodone for breakthrough pain. This can be adjusted as needed per his hospice team. Patient was evaluated twice by her surgical and anesthesia group who felt he was too unstable times which I agree with due to his chronic medical conditions. While here he did bleed into his joint and became anemic at 7.2, his hemoglobin stabilized after 2 units of transfused packed red blood cells. Patient also was hypokalemic initially at 2.5 but this is trended up to 4.2 with potassium supplementation. His kidney disease improved significantly but this is likely due to the increase fluids he received and we have not been as aggressive monitoring his fluid status with his CHF. Patient is comfortable and not in any respiratory distress, satting well on his 4 L via nasal cannula which was his previous hospice requirement prior to admission. Patient be discharged back to the [facility] for hospice care. Nonessential medications have been discontinued that we will continue his blood pressure medicines, metoprolol for his heart rate, and bowel regimens due to his chronic constipation from his opiate use. Again this can be adjusted by the hospice team as they deem necessary. If his pain is not required sufficiently on 2 mg of oral hydromorphone then this can be increased to 4 mg every 4 hours. Patient did well with 1 mg IV every 3 hours here but I am hoping between this and the oxycodone he will be able to be comfortable and still fairly lucid in order to have a decent quality of life while this injury and healing process plays out. Recommend patient follow-up with his PCP in 1 week either by phone or video visit from the [facility] for follow-up care. Metoprolol was started while here due to heart rates been in the 120s and 130s at times as he was not previously on anything for rate control and is not anticoagulated for his A. fib. Anticoagulation definitely not appropriate due to fall risk which is why he was not on this previously. Metoprolol at a low dose has not lowered his blood pressure at all but has controlled his heart rate and likely made more comfortable though we cannot place this on his own. Patient has been alert and oriented x2 majority of his stay here but after getting his pain medicine he did become more confused and sedated as expected. 2-hour (1 hour critical care time) spent today with the family discussing hospice care and happy to make this decision, setting up his return to the [facility] for hospice care, evaluate the patient, developing treatment plan, reconciling his medications, and dictating this note with transfer orders. Procedures Performed: none Results and Findings: Lab Pending Results 10/05/20 13:55: WBC 17.9 H, RBC 3.13 L, Hgb 8.6 L, Hct 28.5 L, MCV 91.1, MCH 27.5, MCHC 30.2 L, RDW 14.6 H, Plt Count 266, MPV 9.2, Neutrophils % (Manual) 90 H, Band Neuts % (Manual) 1, Lymphocytes % (Manual) 2 L, Monocytes % (Manual) 7, Neutrophils # (Manual) 16.1 H, Lymphocytes # (Manual) 0.4 L, Monocytes # (Manual) 1.3 H, Hypersegmented Polys Trace, Toxic Granulation Trace, Platelet Estimate Normal, Hypochromasia 2+ 10/05/20 13:55: Sodium 134, Plasma Sodium 134, Potassium 2.5 L, Chloride 91 L, Carbon Dioxide 35.1 H, Anion Gap 10.4, BUN 65 H, Creatinine 2.89 H, Est GFR (Non-Af Amer) 22 L, BUN/Creatinine Ratio 22.5 H, Random Glucose 122 H, Calcium 8.6, Calcium Adj for Albumin 9.6, Total Bilirubin 0.4, AST 34, ALT 21, Alkaline Phosphatase 97, Total Protein 7.7, Albumin 2.3 L 10/05/20 14:45: SARS-CoV-2 (PCR) Not detected 10/05/20 16:00: Urine Color Yellow, Urine Appearance Clear, Urine pH 5.5, Ur Specific Hinckley 1.015, Urine Protein Negative, Urine Glucose (UA) Negative, Urine Ketones Negative, Urine Blood Negative, Urine Nitrate Negative, Urine Bilirubin Negative, Urine Urobilinogen Normal, Ur Leukocyte Esterase Negative, Urine RBC None seen, Urine WBC None seen, Ur Epithelial Cells 0-5, Urine Bacteria Trace, Hyaline Casts 0-5 H, Urine Culture Comments No culture indicated 10/06/20 06:25: WBC 11.5 H D, RBC 2.57 L, Hgb 7.2 L*, Hct 23.5 L*, MCV 91.4, MCH 28.0, MCHC 30.6 L, RDW 14.6 H, Plt Count 221, MPV 9.3, Neutrophils % (Manual) 75, Lymphocytes % (Manual) 7 L, Monocytes % (Manual) 16 H, Eosinophils % (Manual) 2, Neutrophils # (Manual) 8.6 H, Lymphocytes # (Manual) 0.8 L, Monocytes # (Manual) 1.8 H, Eosinophils # (Manual) 0.2, Polychromasia Trace, Hypochromasia 1+, Basophilic Stippling Trace, Target Cells Trace 10/06/20 06:25: Sodium 136, Plasma Sodium 136, Potassium 2.5 L, Chloride 95 L, Carbon Dioxide 34.9 H, Anion Gap 8.6, BUN 52 H, Creatinine 2.29 H D, Est GFR (Non-Af Amer) 29 L D, BUN/Creatinine Ratio 22.7 H, Random Glucose 125 H, Calcium 8.1, Calcium Adj for Albumin 9.5, Total Bilirubin 0.3, AST 20, ALT 15 L, Alkaline Phosphatase 79, Total Protein 6.5, Albumin 1.9 L 10/06/20 07:35: Blood Type A Positive, Antibody Screen Negative, Crossmatch See Detail 10/07/20 07:05: WBC 14.9 H D, RBC 3.42 L, Hgb 9.7 L, Hct 31.1 L, MCV 90.9, MCH 28.4, MCHC 31.2 L, RDW 14.6 H, Plt Count 201, MPV 9.2, Neutrophils % (Manual) 75, Lymphocytes % (Manual) 11 L, Monocytes % (Manual) 12 H, Eosinophils % (Manual) 1, Neutrophils # (Manual) 11.2 H, Lymphocytes # (Manual) 1.6, Monocytes # (Manual) 1.8 H, Eosinophils # (Manual) 0.1, Hypersegmented Polys Trace, Atypic/Reactive Lymphs 1, Platelet Estimate Normal, Polychromasia Trace, Hypochromasia 1+ 10/07/20 07:05: Sodium 140, Plasma Sodium 140, Potassium 2.8 L, Chloride 99, Carbon Dioxide 34.6 H, Anion Gap 9.2, BUN 38 H, Creatinine 1.64 H D, Est GFR (Non-Af Amer) 42 L D, BUN/Creatinine Ratio 23.2 H, Random Glucose 111 H, Calcium 8.3, Calcium Adj for Albumin 9.7, Total Bilirubin 0.8, AST 15, ALT 13 L, Alkaline Phosphatase 79, Total Protein 6.0 L, Albumin 1.9 L 10/08/20 06:25: WBC 13.8 H, RBC 3.48 L, Hgb 9.8 L, Hct 31.9 L, MCV 91.7, MCH 28.2, MCHC 30.7 L, RDW 14.9 H, Plt Count 226, MPV 9.2, Immature Gran % (Auto) 1. 20 H, Immature Gran # (Auto) 0.17 H, Neutrophils % 77.3 H, Neutrophils % (Manual) 86 H, Lymphocytes % 5.4 L, Lymphocytes % (Manual) 2 L, Monocytes % 13.8 H, Monocytes % (Manual) 10 H, Eosinophils % 2.2, Eosinophils % (Manual) 2, Basophils % 0.1, Nucleated RBC % 0.0, Neutrophils # 10.7 H, Neutrophils # (Manual) 11.9 H, Lymphocytes # 0.75 L, Lymphocytes # (Manual) 0.3 L, Monocytes # 1.9 H, Monocytes # (Manual) 1.4 H, Eosinophils # 0.3, Eosinophils # (Manual) 0.3, Absolute Basophils 0.0, Platelet Estimate Normal, Hypochromasia 1+, Anisocytosis Trace, Microcytosis Trace 10/08/20 06:25: Sodium 138, Plasma Sodium 138, Potassium 3.0 L, Chloride 99, Carbon Dioxide 31.5, Anion Gap 10.5, BUN 35 H, Creatinine 1.62 H, Est GFR (Non- Af Amer) 43 L, BUN/Creatinine Ratio 21.6, Random Glucose 106, Calcium 8.6 10/09/20 07:18: WBC 12.3 H, RBC 3.43 L, Hgb 9.8 L, Hct 31.5 L, MCV 91.8, MCH 28.6, MCHC 31.1 L, RDW 14.7 H, Plt Count 196, MPV 8.6, Neutrophils % (Manual) 69, Band Neuts % (Manual) 1, Lymphocytes % (Manual) 5 L, Monocytes % (Manual) 17 H, Eosinophils % (Manual) 6 H, Neutrophils # (Manual) 8.5 H, Lymphocytes # (Manual) 0.6 L, Monocytes # (Manual) 2.1 H, Eosinophils # (Manual) 0.7, Atypic/Reactive Lymphs 2, Platelet Estimate Normal, Hypochromasia 1+, Anisocytosis Trace, Microcytosis Trace 10/09/20 07:18: Sodium 140, Plasma Sodium 140, Potassium 3.7 D, Chloride 101, Carbon Dioxide 35.9 H, Anion Gap 6.8, BUN 31 H, Creatinine 1.27, Est GFR (Non-Af Amer) 57 L D, BUN/Creatinine Ratio 24.4 H, Random Glucose 95, Calcium 8.0, Calcium Adj for Albumin 9.5, Total Bilirubin 0.5, AST 11, ALT 10 L, Alkaline Phosphatase 69, Total Protein 5.4 L, Albumin 1.7 L 10/10/20 06:22: WBC 14.0 H, RBC 3.76 L, Hgb 10.5 L, Hct 34.3 L, MCV 91.2, MCH 27.9, MCHC 30.6 L, RDW 14.6 H, Plt Count 227, MPV 9.0, Neutrophils % (Manual) 74, Band Neuts % (Manual) 3 H, Lymphocytes % (Manual) 5 L, Monocytes % (Manual) 13 H, Eosinophils % (Manual) 4 H, Immature Granulocytes 1, Neutrophils # (Manual) 10.4 H, Lymphocytes # (Manual) 0.7 L, Monocytes # (Manual) 1.8 H, Eosinophils # (Manual) 0.6, Hypersegmented Polys Trace, Platelet Estimate Normal, Polychromasia Trace, Hypochromasia 1+, Basophilic Stippling Trace 10/10/20 06:22: Sodium 135, Plasma Sodium 135, Potassium 3.9, Chloride 98, Carbon Dioxide 33.3 H, Anion Gap 7.6, BUN 28 H, Creatinine 1.15, Est GFR (Non-Af Amer) 64, BUN/Creatinine Ratio 24.3 H, Random Glucose 111 H, Calcium 8.5, Calcium Adj for Albumin 9.9, Total Bilirubin 0.5, AST 14, ALT 9 L, Alkaline Phosphatase 72, Total Protein 6.2, Albumin 1.8 L 10/11/20 06:30: WBC 14.7 H, RBC 4.05 L, Hgb 11.3 L, Hct 36.9 L, MCV 91.1, MCH 27.9, MCHC 30.6 L, RDW 14.6 H, Plt Count 244, MPV 9.0, Immature Gran % (Auto) JANITOR HELPER, Immature Gran # (Auto) JANITOR HELPER, Neutrophils % JANITOR HELPER, Neutrophils % (Manual) 72, Band Neuts % (Manual) 1, Lymphocytes % JANITOR HELPER, Lymphocytes % (Manual) 9 L, Monocytes % JANITOR HELPER, Monocytes % (Manual) 14 H, Eosinophils % JANITOR HELPER, Eosinophils % (Manual) 4 H, Basophils % JANITOR HELPER, Nucleated RBC % 0.0, Neutrophils # JANITOR HELPER, Neutrophils # (Manual) 10.6 H, Lymphocytes # JANITOR HELPER, Lymphocytes # (Manual) 1.3 L, Monocytes # JANITOR HELPER, Monocytes # (Manual) 2.1 H, Eosinophils # JANITOR HELPER, Eosinophils # (Manual) 0.6, Absolute Basophils JANITOR HELPER, Hypersegmented Polys Trace, Platelet Estimate Normal, Polychromasia Trace, Hypochromasia 1+ 10/11/20 06:30: Sodium 139, Plasma Sodium 139, Potassium 4.2, Chloride 102, Carbon Dioxide 30.3, Anion Gap 10.9, BUN 25 H, Creatinine 1.25, Est GFR (Non-Af Amer) 58 L, BUN/Creatinine Ratio 20.0, Random Glucose 119 H, Calcium 8.7, Calcium Adj for Albumin 10.1, Total Bilirubin 0.9, AST 16, ALT 12 L, Alkaline Phosphatase 80, Total Protein 6.6, Albumin 1.9 L Discharge Location: [facility] Disposition: Hospice Home Condition: Poor Level of Care: ICF Discharge Activity: Non-Weight bearing Discharge Diet: General/regular food Referrals: Clint Bains MD [Primary Care Provider] - One Week (Via phone or video visit) Additional Patient Instructions (free text): To [facility]. Please call and fax discharge informati on. Prescriptions (Any new or edited meds): Hydromorphone HCl [Dilaudid] 2 mg PO Q4H #60 tablet Complete Home Medications List: Complete Home Medication List: Albuterol Sulfate [Proventil Hfa] 2 puff IH Q6H PRN #18 g 06/03/20 Budesonide [Pulmicort Respules] 2 ml IH BID #7 vial 06/03/20 Furosemide 80 mg PO DAILY #120 tab 06/03/20 oxycodone-acetaminophen 10 mg-325 mg tablet 1 tab PO QID PRN #240 tab 09/28/20 Acetaminophen 625 mg PO Q6H PRN 10/05/20 Albuterol Sulfate/Ipratropium [Duoneb 2.5-0.5MG/3ML Soln] 3 ml IH BID 10/05/20 Hydrochlorothiazide [Hydrodiuril] 25 mg PO DAILY 10/05/20 Mag Hydrox/Aluminum Hyd/Simeth [Vicky-Lanta Liquid] 30 ml PO Q4H PRN 10/05/20 Melatonin 3 mg PO HS 10/05/20 Ondansetron [Zofran Odt] 4 mg PO Q8H PRN 10/05/20 Pantoprazole Sodium [Protonix] 20 mg PO DAILY 10/05/20 Sennosides/Docusate Sodium [Senexon-S 50-8.6 mg Tablet] 2 ea PO BID 10/05/20 Tamsulosin HCl [Flomax] 0.8 mg PO HS 10/05/20 Acetaminophen [Tylenol] 650 mg PO Q6H PRN tab 10/11/20 Hydromorphone HCl [Dilaudid] 2 mg PO Q4H #60 tablet 10/11/20 Metoprolol Tartrate [Lopressor] 12.5 mg PO Q12H tab 10/11/20 Polyethylene Glycol 3350 [Miralax] 17 gm PO DAILY packet 10/11/20 Potassium Chloride [K-Dur] 20 meq PO BIDWM tablet.sa 10/11/20 Forms: Patient Portal Registration
[2020-10-11 13:36] VITALS: BP 118/50
== END 2020-10-11 13:35 | disposition hospice, home (50) | DRG 536 ==
LOC: ER 13:26 → MS 16:01
PROVIDERS: ADMIT Family Medicine; ATTEND Family Medicine